=== PATIENT | male | born 1940 | race Caucasian/White ===

== ENCOUNTER 2016-04-15 09:01 | Inpatient (IN) | payer MEDICARE, OTHER ==
[~2016-04-15] VITALS: Ht 177.8 cm; Wt 91.6 kg
[2016-04-15 09:38] LABS: BASO % 0.5 % (0.0-1.0); EOS # 0.2 K/mm3 (0.0-0.50); LARGE UNSTAINED CELL # 0.2 K/mm3 (0.0-0.4); LARGE UNSTAINED CELL % 2.2 % (0.0-4.0); LYMPH # 1.6 K/mm3 (1.5-4.5); LYMPH % 16.7 % (24.0-44.0); MEAN CORPUSCULAR HEMOGLOBIN 31.4 pg (27.0-33.0); MEAN CORPUSCULAR HGB CONC 34.5 g/dl (32.0-36.5); MEAN CORPUSCULAR VOLUME 91.1 fl (80.0-96.0); MONO # 0.6 K/mm3 (0.0-0.8); MONO % 6.5 % (0.0-5.0); NEUTROPHILS # 6.9 K/mm3 (1.8-7.7); NEUTROPHILS % 72.2 % (36.0-66.0); PLATELET COUNT, AUTOMATED 233 k/mm3 (150-450); RED CELL DISTRIBUTION WIDTH 13.1 % (11.5-14.5); WHITE BLOOD COUNT 9.5 K/mm3 (4.0-10.0)
[2016-04-15 09:57] LABS: ANION GAP 11 MEQ/L (8-16); BLOOD UREA NITROGEN 14 MG/DL (7-18); CALCIUM LEVEL 8.8 MG/DL (8.8-10.2); CARBON DIOXIDE LEVEL 24 MEQ/L (21-32); CHLORIDE LEVEL 103 MEQ/L (98-107); CREATININE FOR GFR 0.96 MG/DL (0.70-1.30); GLOMERULAR FILTRATION RATE > 60.0 (>42); GLUCOSE, FASTING 257 MG/DL (83-110); POTASSIUM SERUM 3.6 MEQ/L (3.5-5.1); SODIUM LEVEL 138 MEQ/L (136-145)
[2016-04-15] MEDS ORDERED: ACETAMINOPHEN 325 MG TAB As Ordered ONE (10:05)
[2016-04-15] MEDS ORDERED: MOXIFLOXACIN 400 MG/250 ML IV BAG (AVELOX) (J2280) As Ordered ONE (10:06)
[2016-04-15] MEDS ORDERED: IPRATROPIUM 0.5MG/ALBUTEROL 2.5MG INH SOL UD 3ML (DUONEB)(J7620) As Ordered ONE (10:12)
--- NOTE | 2016-04-15 10:14 | REP ---
CHEST, ONE VIEW: HISTORY: Shortness of breath. COMPARISON: 03/25/2014. An increase in interstitial markings is present in the lungs consistent with chronic interstitial fibrosis. Patchy density is present in the right lower lobe consistent with atelectasis or infiltrate. There is a possible small right pleural effusion. The cardiac silhouette is enlarged. The pulmonary vasculature is normal in appearance. IMPRESSION: 1. Chronic interstitial fibrosis. 2. Right lower lobe atelectasis or infiltrate. 3. Possible small right pleural effusion. 4. Cardiomegaly. Signed by Tomas Mahoney MD 04/15/2016 10:16 A
[2016-04-15 10:33] LABS: ABG BASE EXCESS -4.4 (-2.0-2.0); ABG DEVICE NASAL CANN; ABG HCO3 18.5 MEQ/L (22.0-26.0); ABG PARTIAL PRESSURE CO2 28.9 mmHg (35.0-45.0); ABG PARTIAL PRESSURE O2 110.2 mmHg (75.0-100.0); ABG STANDARD HCO3 20.9 MEQ/L (22.0-26.0); ABG TOTAL CO2 19.4 MEQ/L (23.0-31.0); ABG pH (ARTERIAL) 7.424 UNITS (7.350-7.450)
[2016-04-15] MEDS ORDERED: ISOVUE-370 76% 100ML VIAL (Q9967) As Ordered ONE (11:48)
[2016-04-15] MEDS ORDERED: JANU100T PO (12:59)
[2016-04-15] MEDS ORDERED: LISI10TA4 PO (12:59)
[2016-04-15] MEDS ORDERED: METF500T PO (12:59)
[2016-04-15] MEDS ORDERED: NITR4TASL SL (12:59)
[2016-04-15] MEDS ORDERED: TRIA37.53 PO (12:59)
[2016-04-15] MEDS ORDERED: ELIQ5TAB PO (12:59)
[2016-04-15] MEDS ORDERED: ATOR1TAB19 PO (12:59)
[2016-04-15] MEDS ORDERED: ASPI1TAB PO (12:59)
--- NOTE | 2016-04-15 13:14 | REP ---
CTA of chest, 04/15/2016: Indication: Hypoxia, exclude pulmonary artery embolus. Comparison: Chest radiographs 04/30/2015, and 04/15/2016. TECHNIQUE: Following IV injection of 75 ml Isovue 370 mg/ml, 3 mm continuous spiral axial sections were performed through the chest. Sagittal and coronal reconstructed images were then created and provided for interpretation. Findings: There is aneurysmal dilatation of the ascending thoracic aorta, measuring 4.8 cm AP by 4.7 cm transverse dimension. There is no aortic dissection. The heart is mildly enlarged with left ventricular prominence and left ventricular hypertrophy. There are scattered mediastinal nodes, largest 13 mm short-axis diameter in the subcarinal location. There are no visualized pulmonary artery filling defects or findings to suggest pulmonary artery emboli bilaterally. Compressive atelectasis is seen in the lower lobes bilaterally. There is prominence of pulmonary vasculature consistent with pulmonary venous hypertension bordering mild interstitial pulmonary edema. There are calcified pleural plaques bilaterally consistent with asbestos related disease. Visualized portions of the liver, spleen, pancreas, adrenal glands are normal. There is mild diffuse fatty infiltration of liver. There are small bilateral pleural effusions, right slightly greater than left. Extensive atherosclerotic changes persist noted in the celiac artery. There are no visualized lytic or blastic lesions of bone. Impression: No evidence of pulmonary artery embolus. Mild cardiomegaly with left ventricular enlargement/hypertrophy. Small bilateral pleural effusions, right greater than left, bibasilar atelectasis and pulmonary venous hypertension bordering mild interstitial pulmonary edema. Mild aneurysmal dilatation of the ascending thoracic aorta measuring 4.8 cm AP by 4.7 cm transverse dimension. 13 mm subcarinal node, mildly enlarged. Calcified pleural plaques bilaterally consistent with asbestos related disease. Signed by Ekta Becerril MD 04/15/2016 10:02 P
[2016-04-15] MEDS ORDERED: GLUCAGON FOR INJ 1 MG VIAL (J1610) SC PRN (13:30)
[2016-04-15] MEDS ORDERED: ONDANSETRON 4MG/2ML VIAL (J2405) IV PRN (13:30)
[2016-04-15] MEDS ORDERED: IPRATROPIUM 0.5MG/ALBUTEROL 2.5MG INH SOL UD 3ML (DUONEB)(J7620) NEB PRN (13:30)
[2016-04-15] MEDS ORDERED: DEXTROSE 50% 50 ML SYRINGE IV PRN (13:30)
[2016-04-15] MEDS ORDERED: GLUCOSE 4 GM CHEW TABLET PO PRN (13:30)
[2016-04-15] MEDS ORDERED: ACETAMINOPHEN TAB 650MG DOSE (2X325MG) PO PRN (13:30)
[2016-04-15] MEDS ORDERED: NITROGLYCERIN 0.4 MG SUBL TABLET SL PRN (13:45)
--- NOTE | 2016-04-15 14:49 | HPE ---
DATE OF ADMISSION: 04/15/2016 PRIMARY CARE PROVIDER: [facility]. CHIEF COMPLAINT: Shortness of breath with productive sputum. HISTORY OF PRESENT ILLNESS: 76-year-old gentleman with increasing shortness of breath since 4 o'clock this morning. He has had productive sputum, some questionable fevers, no chills, no rigors. No nausea or vomiting, but he feels that he has had quite a bit of chest tightness and discomfort, difficulty with maintaining oxygen saturations above 87% on room air. Currently he is on 3 liters of oxygen. He did receive a DuoNeb, Avelox and a dose of Solu-Medrol. He does have an underlying history of cardiac stents status post myocardial infarction (TX), diabetes, hypertension, and hyperlipidemia. PAST MEDICAL HISTORY: Diabetes. Hyperlipidemia. Hypertension. Status post TX with cardiac stent placement. Asbestosis with questionable mesothelioma in the past. PAST SURGICAL HISTORY: Cardiac stent placement. SOCIAL HISTORY: He was never a smoker. Denies any tobacco use of any kind. No alcohol. No sick contacts. No recent travel. FAMILY HISTORY: Noncontributory. ALLERGIES: No known drug allergies. HOME MEDICATIONS: - aspirin 81 mg daily - Lipitor 10 mg daily - bupropion 100 mg twice a day - Eliquis 5 mg twice a day - Januvia 50 mg two tablets daily - lisinopril 10 mg daily - metformin 500 mg twice a day - sublingual nitroglycerin 0.4 mg every 5 minutes as needed - triamterene/hydrochlorothiazide 37.5/25 mg tablet daily REVIEW OF SYSTEMS: CONSTITUTIONAL: He has had some mild fevers but no chills, rigors. No nausea, vomiting. No change in appetite. HEENT: Denies headache, lightheaded dizziness blurry vision, double vision or tinnitus. No difficulty with speech or swallow. PULMONARY: He has had increasing shortness of breath, chest tightness with no substernal chest pain, nonproductive cough. No hemoptysis. CARDIOVASCULAR: He denies paroxysmal nocturnal dyspnea (PND), orthopnea. No substernal chest pain. GASTROINTESTINAL (GI): No nausea, vomiting, diarrhea. His appetite has been unchanged. He has regular bowel movements. No hematochezia or melena. GENITOURINARY (): No dysuria, frequency or hematuria. MUSCULOSKELETAL: No bone, muscle or joint pain swelling or erythema. NEURO: No paresthesias or paralysis. ENDOCRINE: No history of thyroid disorder. Positive history of diabetes. LYMPHATICS: No lumps, bumps, swelling in the neck, axilla or groin. No weight loss. No night sweats. HEMATOLOGY: Negative for bleeding or bruising disorder. No prior history of venothromboembolism. ONCOLOGY: Negative for cancer. PSYCHIATRIC: He does have a history of some mild depression on bupropion, but no history of anxiety. No suicidal ideation. No audiovisual hallucinations. 10 point review of systems is complete. Pertinent positives are listed. PHYSICAL EXAMINATION: Temperature is 97.1, respiratory rate is 20, blood pressure 154/104, SpO2 is 95% on 2.5 to 3 liters. HEENT: Head is atraumatic, normocephalic. Eyes pupils equal, round and reactive to light and accommodation. Throat clear. LUNGS: Diminished bibasilar breath sounds with intermittent expiratory wheeze throughout all lung hernandez. HEART: Regular rate and rhythm. ABDOMEN: Obese, soft, nontender, nondistended. Positive bowel sounds. No masses. No rebound. EXTREMITIES: No edema. No calf tenderness. LABORATORY DATA: White count is 9.5, hemoglobin is 15, platelets are 233, sodium 138, potassium 3.6, chloride 103, bicarb 24, anion gap 11, BUN is 14, creatinine 0.96, glucose 257, lactic acid is 2. CK is 202 and 163, CK-MB is 6.8 and 5.6. Troponin is 0.14 and 0.16. BNP is 435. ABG shows a pH of 7.424, pCO2 is 28.9, pO2 is 110.2. Blood cultures pending times two. Influenza A and B are negative. Chest x-ray chronic interstitial fibrosis, right lower lobe atelectasis versus infiltrate, possible small right pleural effusion and cardiomegaly is noted. CT angio of the chest negative for pulmonary embolism, mild cardiomegaly left ventricular enlargement/hypertrophy, small bilateral pleural effusions right greater than left, bibasilar atelectasis versus pulmonary venous hypertension bordering mild interstitial pulmonary edema. Mild aneurysmal dilation of the thoracic aorta measuring 4.8 and 4.7, by AP and transverse dimension, respectively. 13 mm subcarinal node. Mildly enlarged calcified pleural plaques bilaterally consistent with asbestosis related disease. IMPRESSION: Mr. Wolf is a 76-year-old gentleman with increasing shortness of breath with signs and symptoms of community-acquired pneumonia. Clinically he is requiring some oxygen for his acute respiratory failure and will need to be admitted overnight for further observation and treatment. PROBLEM LIST: 1. Acute respiratory failure. 2. Community acquired pneumonia, most likely bacterial etiology. 3. Mildly elevated Troponin. Will need to have cardiac markers cycled. 4. Diabetes. 5. Hyperlipidemia. 6. Hypertension. 7. Prior TX. 8. History of cardiac stents. PLAN: The patient admitted to PCU on telemetry. Will monitor overnight. Will cycle his cardiac markers and start on IV Levaquin, Solu-Medrol, and DuoNebs. Continue his home medications with hold parameters on his blood pressure medications. Hold his Januvia and his metformin due to risk of hypoglycemia. Will cover him with fingersticks before meals and at bedtime, as well as sliding scale insulin per [facility] protocol. Deep vein thrombosis (DVT) prophylaxis with Lovenox. Will reevaluate him in the morning.
--- NOTE | 2016-04-15 15:09 | EDDOCDS ---
Physician Documentation [facility] Name: Sherif Wolf Age: 76 yrs Sex: Male : 1940 Arrival Date: 04/15/2016 Time: 09:01 Bed 9 Private MD: Disposition: 04/15/16 13:21 Hospitalization ordered by Herrera Soria for Inpatient Admission. Preliminary diagnosis is Pneumonia due to other specified bacteria. - Bed requested for PCU. - Status is Inpatient Admission. jmk - Condition is Stable. - Problem is new. - Symptoms are unchanged. Historical: - Allergies: no known allergies; - Home Meds: 1. aspirin 81 mg Oral TbEC 1 tab once daily 2. atorvastatin 10 mg oral tab 1 tab once daily 3. bupropion HCl 100 mg Oral tab 2 times per day 4. Eliquis 5 mg oral tab 1 tab 2 times per day 5. Januvia 50 mg oral tab 2 tabs once daily 6. lisinopril 10 mg Oral tab once daily 7. metformin 500 mg Oral tab 1 tab 2 times per day 8. nitroglycerin 0.4 mg SL subl 1 tab every 5 minutes X3 as needed 9. triamterene-hydrochlorothiazid 37.5-25 mg Oral cap 1 cap once daily - PMHx: Diabetes - NIDDM: controlled; Hypercholesterolemia; Hypertension; VA; - PSHx: Cardiac stents; - Social history: Smoking status: Patient states was never smoker of tobacco. No barriers to communication noted, The patient speaks fluent Mongolian, Speaks appropriately for age. - Family history: Not pertinent. - : The pt / caregiver states he / she is on anticoagulants: Eliquis Home medication list is obtained from the patient. - Exposure Risk Screening:: None identified. Vital Signs: 04/15 09:03 BP 174 / 101; Pulse 59; Resp 26 S; Temp 97.1(O); Pulse Ox 95% on R/A; Weight 92.99 kg / dd6 205.01 lbs (R); Height 5 ft. 10 in. (177.80 cm) (R); 10:16 BP 177 / 81 (auto/); jmk 10:16 Pulse 108 MON; Pulse Ox 96% ; jmk 10:31 BP 155 / 88 (auto/); jmk 10:31 Pulse 108 MON; Resp 20; Pulse Ox 96% ; jmk 10:46 BP 176 / 94 (auto/); jmk 10:46 Pulse 110 MON; Pulse Ox 94% ; jmk 11:01 BP 166 / 104 (auto/); jmk 11:01 Pulse 110 MON; Pulse Ox 95% ; jmk 11:16 BP 173 / 98 (auto/); jmk 11:16 Pulse 112 MON; Pulse Ox 93% ; jmk 12:04 BP 154 / 104 (auto/); Resp 20; jmk 12:05 Pulse 108 MON; Pulse Ox 95% ; jmk 14:32 BP 126 / 84; Pulse 100; Resp 18; Temp 97.6(O); Pulse Ox 96% 4 lpm ; jmk 09:03 Body Mass Index 29.41 (92.99 kg, 177.80 cm) dd6 MDM: 09:13 -Blood Culture (Adults Only), peripheral from different site, or from device/port/PICC sd1 etc. if present ordered. 09:13 Cognos Lead/Pulse Ox/q 15 min VS ordered. sd1 09:13 IV Saline Lock ordered. sd1 09:13 Oxygen at 4L/Min NC or Home dosage ordered. sd1 09:13 Rhythm Strip to chart ordered. sd1 09:14 B-Type Natiuretic Peptide Ordered. EDMS 09:14 Basic Metabolic Profile Ordered. EDMS 09:14 CBC with Diff Ordered. EDMS 09:14 Cardiac Injury Profile Ordered. EDMS 09:14 Troponin Ordered. EDMS 09:15 -Blood Culture Ordered. EDMS 09:15 Chest, 1 View Ordered. EDMS 09:15 ECG WITH READING ER PHYS+CARDIAG ordered. EDMS 09:20 -Blood Culture (Adults Only), peripheral from different site, or from device/port/PICC lbd etc. if present complete. 09:25 BLOOD CULTURES Ordered. EDMS 09:45 Misc. Nursing Order ordered. sd1 10:02 Albuterol-Ipratropium 1 neb Nebulizer every 20 minutes x3 ordered. sd1 10:02 Moxifloxacin 400 mg IV at 400 mg/hr once over 60 mins ordered. sd1 10:02 Basic Metabolic Profile Reviewed. sd1 10:02 CBC with Diff Reviewed. sd1 10:02 Cardiac Injury Profile Reviewed. sd1 10:02 Troponin Reviewed. sd1 10:03 Call Respiratory ordered. sd1 10:03 Lactic Acid (Pulido tube on ice) Ordered. EDMS 10:04 -Arterial Blood Gas Ordered. EDMS 10:04 -Influenza A&B Rapid Antigen - Nose Ordered. EDMS 10:04 Call Respiratory complete. lbd 10:06 Acetaminophen Tablet 325 mg PO once ordered. enrico 10:07 Financial registration complete. lg 10:23 [facility] Payment Agreement was scanned into [employer] and attached to record. lg 11:35 B-Type Natiuretic Peptide Reviewed. sd1 11:35 -Arterial Blood Gas Reviewed. sd1 11:35 Lactic Acid (Pulido tube on ice) Reviewed. sd1 11:35 -Influenza A&B Rapid Antigen - Nose Reviewed. sd1 11:35 Chest, 1 View Reviewed. sd1 11:38 Redraw CIP &Troponin (put time in details section) ordered. sd1 11:40 CT Chest Angio R/O PE Ordered. EDMS 11:40 Redraw CIP &Troponin (put time in details section) complete. lbd 11:43 CARDIAC MARKER PANEL Ordered. EDMS 11:48 BED REQUEST+ADM ordered. EDMS 12:49 CARDIAC MARKER PANEL Reviewed. sd1 13:34 CONSISTENT CARBOHYDRATES ordered. EDMS 13:37 Admission / Observation Status ordered. EDMS 14:03 SPUTUM CULTURE AND GRAM STAIN Ordered. EDMS 14:05 CARDIAC MARKER PANEL Ordered. EDMS Administered Medications: 10:11 Drug: Albuterol-Ipratropium 1 neb [ipratropium-albuterol 0.5 mg-3 mg(2.5 mg base)/3 mL kt1 nebulization soln (1 neb)] Route: Nebulizer; 10:25 Drug: Albuterol-Ipratropium 1 neb [ipratropium-albuterol 0.5 mg-3 mg(2.5 mg base)/3 mL kt1 nebulization soln (1 neb)] Route: Nebulizer; 10:25 Follow up: Response: Nebulizer completed kt1 10:36 Follow up: Response: Nebulizer completed kt1 10:26 Drug: Moxifloxacin 400 mg [moxifloxacin 400 mg/250 mL-sodium chloride(iso) intravenous enrico piggyback] Route: IV; Rate: 400 mg/hr; Infused Over: 60 mins; Site: right antecubital; 10:26 Drug: Acetaminophen 325 mg [acetaminophen 325 mg tablet (1 tabs)] Route: PO; jmk 12:06 Follow up: Response: Pain is decreased jmk 10:37 Drug: Albuterol-Ipratropium 1 neb [ipratropium-albuterol 0.5 mg-3 mg(2.5 mg base)/3 mL kt1 nebulization soln (1 neb)] Route: Nebulizer; 10:47 Follow up: Response: Nebulizer completed kt1 Signatures: Dispatcher [employer] EDMS Aixa Gamble MD MD sd1 Dinah Kenny, End User Consultant Unit lbd Ricardo Duke,RN RN jmk Jazmyn Jett, Navjot Reg lg Sherif Peterson RN RN mlb1 Katherine Carmona, DIRECTOR OF LITIGATION DIRECTOR OF LITIGATION Ml Benavides kt1 The chart was reviewed and I authenticate all verbal orders and agree with the evaluation and treatment provided.Corrections: (The following items were deleted from the chart) 13:40 13:12 REGULAR+DIET ordered. EDMS EDMS Attachments: 10:23 [facility] Payment Agreement lg MTDD
[2016-04-15 15:10] VITALS: BP 130/78
--- NOTE | 2016-04-15 15:10 | EDDOCDS ---
Nurse's Notes [facility] Name: Sherif Wolf Age: 76 yrs Sex: Male : 1940 Arrival Date: 04/15/2016 Time: 09:01 Bed 9 Private MD: Diagnosis: Pneumonia due to other specified bacteria Presentation: 04/15 09:05 Presenting complaint: Patient states: SOB began at 0400 this am. Adult Sepsis mlb1 Screening: The patient does not have new or worsening altered mentation. Patient has a respiratory rate of greater than or equal to 22 (1 point). Systolic blood pressure is greater than 100. Patient has a qSOFA score of 0- Negative Sepsis Screen. Suicide/Homicide risk assessment- the patient denies having any suicidal and/or homicidal ideations and does not present with any other emotional, behavioral or mental health complaints. Status: Patient is not a conference service coordinator or dependent. Transition of care: patient was not received from another setting of care. 09:05 Acuity: PRANEETH Level 3 mlb1 09:05 Method Of Arrival: Walkin/Carried/Asstd mlb1 Triage Assessment: 09:08 General: Appears distressed, Behavior is appropriate for age, cooperative. Pain: Denies mlb1 pain. Respiratory: Onset: The symptoms/episode began/occurred this morning, Airway is patent Respiratory effort is labored. Historical: - Allergies: no known allergies; - Home Meds: 1. aspirin 81 mg Oral TbEC 1 tab once daily 2. atorvastatin 10 mg oral tab 1 tab once daily 3. bupropion HCl 100 mg Oral tab 2 times per day 4. Eliquis 5 mg oral tab 1 tab 2 times per day 5. Januvia 50 mg oral tab 2 tabs once daily 6. lisinopril 10 mg Oral tab once daily 7. metformin 500 mg Oral tab 1 tab 2 times per day 8. nitroglycerin 0.4 mg SL subl 1 tab every 5 minutes X3 as needed 9. triamterene-hydrochlorothiazid 37.5-25 mg Oral cap 1 cap once daily - PMHx: Diabetes - NIDDM: controlled; Hypercholesterolemia; Hypertension; PR; - PSHx: Cardiac stents; - Social history: Smoking status: Patient states was never smoker of tobacco. No barriers to communication noted, The patient speaks fluent Bangladeshi, Speaks appropriately for age. - Family history: Not pertinent. - : The pt / caregiver states he / she is on anticoagulants: Eliquis Home medication list is obtained from the patient. - Exposure Risk Screening:: None identified. Screenin:39 Screening information is obtained from the patient. Fall risk: No risks identified. k Assistance ADL's: requires no assistance with activities of daily living. Abuse/DV Screen: The patient / caregiver reports he/she is: not in a situation that causes fear, pain or injury. Nutritional screening: No deficits noted. Advance Directives: Currently, there is a health care proxy, moe cuellar. There is an active DNR order There is no living will. There is an active Power of Clinical Research Monitor, moe cuellar. home support is adequate. Assessment: 09:39 General: Appears in no apparent distress. Cardiovascular: Capillary refill < 3 seconds [facility] Clubbing of nail beds is absent Heart tones S1 S2 present Edema is absent. Rhythm is regular Chest pain is denied. Respiratory: No deficits noted. Airway is patent Respiratory effort is even, unlabored, Respiratory pattern is regular, Breath sounds are absent bilaterally. Breath sounds are clear. GI: Abdomen is non- distended obese. 10:30 General: Appears pleasant and conversive. complete sentences without resp interruption [facility] while at rest. + diffuse headache and medicated for same. 12:28 General: Appears ambulated to bathroom with steady gait. + fatigue with physical [facility] activity which he reports as not at his baseline. monitor is sr/st. denies chest pain.. 13:17 General: Appears presently sitting upright on edge of stretcher. juice provided as per [facility] request. without resp distress when at rest.. awaiting admsiision. 14:22 General: Appears diet has been provided and taken well.. presently resting supine on [employer] stretcher. no observed resp distress when at rest.. 14:38 General: Appears awakened from sleep . without resp distress. denies pain. Monitor is [employer] sr without ectopy. maintaining sat of 96% with 4 l nc. sl intact to right AC space. admitted. Vital Signs: 09:03 BP 174 / 101; Pulse 59; Resp 26 S; Temp 97.1(O); Pulse Ox 95% on R/A; Weight 92.99 kg dd6 (R); Height 5 ft. 10 in. (177.80 cm) (R); 10:16 BP 177 / 81 (auto/); jmk 10:16 Pulse 108 MON; Pulse Ox 96% ; jmk 10:31 BP 155 / 88 (auto/); jmk 10:31 Pulse 108 MON; Resp 20; Pulse Ox 96% ; jmk 10:46 BP 176 / 94 (auto/); jmk 10:46 Pulse 110 MON; Pulse Ox 94% ; jmk 11:01 BP 166 / 104 (auto/); jmk 11:01 Pulse 110 MON; Pulse Ox 95% ; jmk 11:16 BP 173 / 98 (auto/); jmk 11:16 Pulse 112 MON; Pulse Ox 93% ; jmk 12:04 BP 154 / 104 (auto/); Resp 20; jmk 12:05 Pulse 108 MON; Pulse Ox 95% ; jmk 14:32 BP 126 / 84; Pulse 100; Resp 18; Temp 97.6(O); Pulse Ox 96% 4 lpm ; jmk 09:03 Body Mass Index 29.41 (92.99 kg, 177.80 cm) dd6 Vitals: 09:03 Log In Time: April 15, 2016 at 09:01. RN notified that patient meets Red Flag dd6 criteria. ED Course: 09:02 Patient visited by Mazin Melo PCA. dd6 09:02 Patient moved to Waiting dd6 09:05 Patient visited by Sherif Peterson, RN. mlb1 09:06 Triage Initiated mlb1 09:08 Patient visited by Sherif Peterson, RN. mlb1 09:09 Patient moved to 9 mlb1 09:16 Aixa Gamble MD is Attending Physician. sd1 09:16 Patient visited by Aixa Gamble MD. sd1 09:24 Patient visited by Charly Monet. jml1 09:24 EKG done. (by ED staff). Reviewed by Aixa Gamble MD. jml1 09:28 -Blood Culture Sent. kr3 09:28 B-Type Natiuretic Peptide Sent. kr3 09:28 Basic Metabolic Profile Sent. kr3 09:28 CBC with Diff Sent. kr3 09:28 Cardiac Injury Profile Sent. kr3 09:28 Troponin Sent. kr3 09:28 Inserted saline lock: 20 gauge in right antecubital area and blood collected. The kr3 patient tolerated the procedure well. 09:39 The patient / caregiver is instructed regarding the plan of care and ED course. Cardiac jmk monitor on. Pulse ox on. 09:39 No procedures done that require assistance. jmk 09:40 Patient visited by Ricardo Duke,RN. jmk 09:59 BLOOD CULTURES Sent. jmk 10:23 [facility] [place] was scanned into [employer] and attached to record. lg 10:24 -Arterial Blood Gas Sent. kt1 10:26 -Influenza A&B Rapid Antigen - Nose Sent. jmk 10:27 Chest, 1 View Returned. EDMS 10:51 Patient visited by Charly Monet. jml1 11:33 Patient visited by Katherine Carmona PCA. jlf 11:53 Patient visited by Katherine Carmona PCA. jlf 12:06 CARDIAC MARKER PANEL Sent. jmk 12:18 Patient visited by Katherine Carmona PCA. jlf 13:18 Patient visited by Ricardo Duke,AFUA. jmk 13:20 Herrera Soria DO is Hospitalizing Provider. sd1 13:22 CT Chest Angio R/O PE Returned. EDMS Administered Medications: 10:11 Drug: Albuterol-Ipratropium 1 neb [ipratropium-albuterol 0.5 mg-3 mg(2.5 mg base)/3 mL kt1 nebulization soln (1 neb)] Route: Nebulizer; 10:25 Drug: Albuterol-Ipratropium 1 neb [ipratropium-albuterol 0.5 mg-3 mg(2.5 mg base)/3 mL kt1 nebulization soln (1 neb)] Route: Nebulizer; 10:25 Follow up: Response: Nebulizer completed kt1 10:36 Follow up: Response: Nebulizer completed kt1 10:26 Drug: Moxifloxacin 400 mg [moxifloxacin 400 mg/250 mL-sodium chloride(iso) intravenous enrico piggyback] Route: IV; Rate: 400 mg/hr; Infused Over: 60 mins; Site: right antecubital; 10:26 Drug: Acetaminophen 325 mg [acetaminophen 325 mg tablet (1 tabs)] Route: PO; jmk 12:06 Follow up: Response: Pain is decreased jmk 10:37 Drug: Albuterol-Ipratropium 1 neb [ipratropium-albuterol 0.5 mg-3 mg(2.5 mg base)/3 mL kt1 nebulization soln (1 neb)] Route: Nebulizer; 10:47 Follow up: Response: Nebulizer completed kt1 RT: 10:15 ABG's drawn from right radial artery pressure held for 5 minutes no bleeding noted kt1 pressure bandage applied specimen sent pt. tolerated well. 10:15 Initial Med Neb Given as ordered Patient was instructed and evaluated on procedure kt1 Patient tolerated procedure well without adverse effect. Respiratory: Breath sounds are diminished bilaterally. Breath sounds with wheezes in left posterior upper lobe and left posterior lower lobe at expiration. Order Results: Lab Order: B-Type Natiuretic Peptide; SPEC'M 04/15/16 09:26 Test: BRAIN NATRIURETIC PEPTIDE; Value: 435; Range: <100; Abnormal: Above high normal; Units: PG/ML; Status: F Lab Order: Basic Metabolic Profile; SPEC'M 04/15/16 09:26 Test: GLUCOSE, FASTING; Value: 257; Range: 83-110; Abnormal: Above high normal; Units: MG/DL; Status: F Test: BLOOD UREA NITROGEN; Value: 14; Range: 7-18; Units: MG/DL; Status: F Test: CREATININE FOR GFR; Value: 0.96; Range: 0.70-1.30; Units: MG/DL; Status: F Test: GLOMERULAR FILTRATION RATE; Value: > 60.0; Range: >42; Status: F Test: SODIUM LEVEL; Value: 138; Range: 136-145; Units: MEQ/L; Status: F Test: POTASSIUM SERUM; Value: 3.6; Range: 3.5-5.1; Units: MEQ/L; Status: F Test: CHLORIDE LEVEL; Value: 103; Range: 98-107; Units: MEQ/L; Status: F Test: CARBON DIOXIDE LEVEL; Value: 24; Range: 21-32; Units: MEQ/L; Status: F Test: ANION GAP; Value: 11; Range: 8-16; Units: MEQ/L; Status: F Test: CALCIUM LEVEL; Value: 8.8; Range: 8.8-10.2; Units: MG/DL; Status: F Test Note: ; Units are mL/min/1.73 m2 Chronic Kidney Disease Staging per NKF: Stage I & II GFR >=60 Normal to Mildly Decreased Stage III GFR 30-59 Moderately Decreased Stage IV GFR 15-29 Severely Decreased Stage V GFR <15 Very Little GFR Left ESRD GFR <15 on SENIOR SCIENCE CONSULTANT Lab Order: CBC with Diff; SPEC'M 04/15/16 09:26 Test: WHITE BLOOD COUNT; Value: 9.5; Range: 4.0-10.0; Units: K/mm3; Status: F Test: RED BLOOD COUNT; Value: 4.78; Range: 4.30-6.10; Units: M/mm3; Status: F Test: HEMOGLOBIN; Value: 15.0; Range: 14.0-18.0; Units: g/dl; Status: F Test: HEMATOCRIT; Value: 43.6; Range: 42.0-52.0; Units: %; Status: F Test: MEAN CORPUSCULAR VOLUME; Value: 91.1; Range: 80.0-96.0; Units: fl; Status: F Test: MEAN CORPUSCULAR HEMOGLOBIN; Value: 31.4; Range: 27.0-33.0; Units: pg; Status: F Test: MEAN CORPUSCULAR HGB CONC; Value: 34.5; Range: 32.0-36.5; Units: g/dl; Status: F Test: RED CELL DISTRIBUTION WIDTH; Value: 13.1; Range: 11.5-14.5; Units: %; Status: F Test: PLATELET COUNT, AUTOMATED; Value: 233; Range: 150-450; Units: k/mm3; Status: F Test: NEUTROPHILS %; Value: 72.2; Range: 36.0-66.0; Abnormal: Above high normal; Units: %; Status: F Test: LYMPH %; Value: 16.7; Range: 24.0-44.0; Abnormal: Below low normal; Units: %; Status: F Test: MONO %; Value: 6.5; Range: 0.0-5.0; Abnormal: Above high normal; Units: %; Status: F Test: EOS %; Value: 2.0; Range: 0.0-3.0; Units: %; Status: F Test: BASO %; Value: 0.5; Range: 0.0-1.0; Units: %; Status: F Test: LARGE UNSTAINED CELL %; Value: 2.2; Range: 0.0-4.0; Units: %; Status: F Test: NEUTROPHILS #; Value: 6.9; Range: 1.8-7.7; Units: K/mm3; Status: F Test: LYMPH #; Value: 1.6; Range: 1.5-4.5; Units: K/mm3; Status: F Test: MONO #; Value: 0.6; Range: 0.0-0.8; Units: K/mm3; Status: F Test: EOS #; Value: 0.2; Range: 0.0-0.50; Units: K/mm3; Status: F Test: BASO #; Value: 0.0; Range: 0.0-0.2; Units: K/mm3; Status: F Test: LARGE UNSTAINED CELL #; Value: 0.2; Range: 0.0-0.4; Units: K/mm3; Status: F Lab Order: Cardiac Injury Profile; SPEC'M 04/15/16 09:26 Test: CPK CREATINE PHOSPHOKINASE; Value: 202; Range: 39-308; Units: U/L; Status: F Test: CK-MB VALUE MASS; Value: 6.8; Range: 0.0-3.6; Abnormal: Above high normal; Units: NG/ML; Status: F Test: MB/CK RELATIVE INDEX; Value: 3.36; Range: < OR =4; Status: F Test Note: ; DIAGNOSIS CRITERIA MMB ng/ml Relative Index (RI) NON-AMI < or = 5 N/A PULIDO ZONE > 5 < or = 4 AMI > 5 > 4 Lab Order: Troponin; SPEC'M 04/15/16 09:26 Test: TROPONIN I; Value: 0.14; Range: < 0.10; Abnormal: Above high normal; Units: NG/ML; Status: F Test Note: ; Troponin I Reference Interval for Synchro LOCI: 99th Percentile= 0.00-0.045 ng/ml Risk Stratification: <= 0.10 ng/ml Decreased Risk for Adverse Clinical Events. 0.10-1.50 ng/ml Increased Risk for Adverse Clinical Events. Evaluation of additional criterion and/or repeat testing in 2-6 hours is suggested to rule out myocardial damage. >= 1.50 ng/ml Indicative of Myocardial Injury. Lab Order: Lactic Acid (Pulido tube on ice); SPEC'M 04/15/16 09:26 Test: LACTIC ACID LEVEL, LACTATE; Value: 2.0; Range: 0.4-2.0; Units: MMOL/L; Status: F Lab Order: -Arterial Blood Gas; SPEC'M 04/15/16 10:03 Test: ABG pH (ARTERIAL); Value: 7.424; Range: 7.350-7.450; Units: UNITS; Status: F Test: ABG PARTIAL PRESSURE CO2; Value: 28.9; Range: 35.0-45.0; Abnormal: Below low normal; Units: mmHg; Status: F Test: ABG PARTIAL PRESSURE O2; Value: 110.2; Range: 75.0-100.0; Abnormal: Above high normal; Units: mmHg; Status: F Test: ABG TOTAL CO2; Value: 19.4; Range: 23.0-31.0; Abnormal: Below low normal; Units: MEQ/L; Status: F Test: ABG HCO3; Value: 18.5; Range: 22.0-26.0; Abnormal: Below low normal; Units: MEQ/L; Status: F Test: ABG BASE EXCESS; Value: -4.4; Range: -2.0-2.0; Abnormal: Below low normal; Status: F Test: ABG STANDARD HCO3; Value: 20.9; Range: 22.0-26.0; Abnormal: Below low normal; Units: MEQ/L; Status: F Test: ABG O2 SATURATION; Value: 98.5; Range: 95.0-99.0; Units: %; Status: F Test: ABG DEVICE; Value: NASAL RAEGAN; Status: F Lab Order: -Influenza A&B Rapid Antigen - Nose; SPEC'M 04/15/16 10:14 Test: INFLUENZA A RAPID SCR by ICA; Value: INFLUENZA A RESULTS NEGATIVE; Status: F Test: INFLUENZA A RAPID SCR by ICA; Value: Comments:; Status: F Test: INFLUENZA B RAPID SCR by ICA; Value: INFLUENZA B RESULTS NEGATIVE; Status: F Test Note: ; The Influenza test is a direct rapid immunoassay for the qualitative detection of Influenza viral antigen. Cell culture (Viral Culture) testing should be considered to confirm NEGATIVE results and to assist in detecting other viruses that can provide similar clinical symptoms. Please contact the lab within 24 hours ([phone] if confirmatory testing is desired. Lab Order: CARDIAC MARKER PANEL; SPEC'M 04/15/16 12:05 Test: CPK CREATINE PHOSPHOKINASE; Value: 163; Range: 39-308; Units: U/L; Status: F Test: CK-MB VALUE MASS; Value: 5.6; Range: 0.0-3.6; Abnormal: Above high normal; Units: NG/ML; Status: F Test: MB/CK RELATIVE INDEX; Value: 3.43; Range: < OR =4; Status: F Test: TROPONIN I; Value: 0.16; Range: < 0.10; Abnormal: Above high normal; Units: NG/ML; Status: F Test Note: ; DIAGNOSIS CRITERIA MMB ng/ml Relative Index (RI) NON-AMI < or = 5 N/A PULIDO ZONE > 5 < or = 4 AMI > 5 > 4 Radiology Order: Chest, 1 View Test: Chest, 1 View REASON FOR EXAMINATION: Shortness of Breath; CHEST, ONE VIEW:; ; HISTORY: Shortness of breath.; ; COMPARISON: 03/25/2014.; ; An increase in interstitial markings is present in the lungs consistent with; chronic interstitial fibrosis. Patchy density is present in the right lower lobe; consistent with atelectasis or infiltrate. There is a possible small right; pleural effusion. The cardiac silhouette is enlarged. The pulmonary vasculature; is normal in appearance.; ; IMPRESSION:; ; 1. Chronic interstitial fibrosis.; ; 2. Right lower lobe atelectasis or infiltrate.; ; 3. Possible small right pleural effusion.; ; 4. Cardiomegaly.; ; ; Signed by; Tomas Mahoney MD 04/15/2016 10:16 A; Radiology Order: CT Chest Angio R/O PE Test: CT Chest Angio R/O PE REASON FOR EXAMINATION: hypoxia; CTA of chest, 04/15/2016:; ; Indication: Hypoxia, exclude pulmonary artery embolus.; ; Comparison: Chest radiographs 04/30/2015, and 04/15/2016.; ; TECHNIQUE: Following IV injection of 75 ml Isovue 370 mg/ml, 3 mm continuous; spiral axial sections were performed through the chest. Sagittal and coronal; reconstructed images were then created and provided for interpretation.; ; Findings: There is aneurysmal dilatation of the ascending thoracic aorta,; measuring 4.8 cm AP by 4.7 cm transverse dimension. There is no aortic; dissection. The heart is mildly enlarged with left ventricular prominence and; left ventricular hypertrophy. There are scattered mediastinal nodes, largest 13; mm short-axis diameter in the subcarinal location. There are no visualized; pulmonary artery filling defects or findings to suggest pulmonary artery emboli; bilaterally.; ; Compressive atelectasis is seen in the lower lobes bilaterally.; ; There is prominence of pulmonary vasculature consistent with pulmonary venous; hypertension bordering mild interstitial pulmonary edema. There are calcified; pleural plaques bilaterally consistent with asbestos related disease.; ; Visualized portions of the liver, spleen, pancreas, adrenal glands are normal.; There is mild diffuse fatty infiltration of liver. There are small bilateral; pleural effusions, right slightly greater than left. Extensive atherosclerotic; changes persist noted in the celiac artery. There are no visualized lytic or; blastic lesions of bone.; ; Impression:; No evidence of pulmonary artery embolus.; ; Mild cardiomegaly with left ventricular enlargement/hypertrophy. Small bilateral; pleural effusions, right greater than left, bibasilar atelectasis and pulmonary; venous hypertension bordering mild interstitial pulmonary edema.; ; Mild aneurysmal dilatation of the ascending thoracic aorta measuring 4.8 cm AP by; 4.7 cm transverse dimension.; ; 13 mm subcarinal node, mildly enlarged.; ; Calcified pleural plaques bilaterally consistent with asbestos related disease.; ; ; ; ; Unreviewed; Outcome: 13:21 Decision to Hospitalize by Provider. sd1 14:38 Discharge Assessment: Patient awake, alert and oriented x 3. No cognitive and/or jmk functional deficits noted. Patient verbalized understanding of disposition instructions. patient administered narcotics - no. The following High Risk Discharge criteria are identified: None. Condition: good. CT Study completed. Admission hand-off: Report Faxed Fax receipt verified by brittnee, wastewater treatment plant chemist. Property :Personal belongings accompany Pt. 15:09 Patient left the ED. enrico Signatures: Dispatcher [employer] EDKS Aixa Gamble MD MD sd1 Ricardo Duke,AFUA RN Jazmyn Long Reg Reg lg Barney, Sherif B, RN RN mlb1 Ml Rai kt1 Tete Moncada,AFUA RN kr3 Mazin Melo, A AUXILIARY A AUXILIARY dd6 Charly Monet jml1 Katherine Carmona, A AUXILIARY A AUXILIARY jlf ISISD
[2016-04-15] MEDS: IPRATROPIUM 0.5MG/ALBUTEROL 2.5MG INH SOL UD 3ML (DUONEB)(J7620) NEB SCH (16:00)
[2016-04-15] MEDS: HumaLOG INSULIN (NovoLOG) PER UNIT SC SCH ×2 (17:31→21:36)
[2016-04-15] MEDS: methylPREDNISolone INJ 125 MG/2 ML VIAL (J2930) IV SCH (17:32)
--- NOTE | 2016-04-15 19:58 | ECGEPIP ---
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
[2016-04-15 20:00] VITALS: BP 139/90
[2016-04-15] MEDS: DOCUSATE SODIUM 100 MG CAP PO SCH (21:00)
[2016-04-15] MEDS: APIXABAN 5 MG TAB (ELIQUIS) PO SCH (21:36)
[2016-04-15] MEDS: ATORVASTATIN 10 MG TAB PO SCH (21:36)
[2016-04-15 23:59] VITALS: BP 150/100
[2016-04-16] MEDS ORDERED: LISINOPRIL 10 MG TAB PO ONE (00:45)
[2016-04-16 04:00] VITALS: BP 150/90
[2016-04-16] MEDS: methylPREDNISolone INJ 125 MG/2 ML VIAL (J2930) IV SCH ×2 (04:00→15:16)
[2016-04-16 06:06] LABS: MEAN CORPUSCULAR HEMOGLOBIN 31.8 pg (27.0-33.0); MEAN CORPUSCULAR HGB CONC 34.9 g/dl (32.0-36.5); MEAN CORPUSCULAR VOLUME 91.2 fl (80.0-96.0); RED CELL DISTRIBUTION WIDTH 12.9 % (11.5-14.5); WHITE BLOOD COUNT 9.5 K/mm3 (4.0-10.0)
[2016-04-16 06:28] LABS: ALBUMIN 3.7 GM/DL (3.2-5.2); ANION GAP 12 MEQ/L (8-16); BLOOD UREA NITROGEN 14 MG/DL (7-18); CALCIUM LEVEL 9.4 MG/DL (8.8-10.2); CARBON DIOXIDE LEVEL 22 MEQ/L (21-32); CHLORIDE LEVEL 102 MEQ/L (98-107); CREATININE FOR GFR 0.96 MG/DL (0.70-1.30); GLOMERULAR FILTRATION RATE > 60.0 (>42); GLUCOSE, FASTING 322 MG/DL (83-110); PHOSPHORUS LEVEL 3.3 MG/DL (2.5-4.9); POTASSIUM SERUM 3.9 MEQ/L (3.5-5.1); SODIUM LEVEL 136 MEQ/L (136-145)
[2016-04-16] MEDS: IPRATROPIUM 0.5MG/ALBUTEROL 2.5MG INH SOL UD 3ML (DUONEB)(J7620) NEB SCH ×3 (07:12→15:18)
[2016-04-16 07:30] VITALS: BP 167/80
[2016-04-16 08:31] LABS: ABG BASE EXCESS -6.6 (-2.0-2.0); ABG HCO3 15.4 MEQ/L (22.0-26.0); ABG PARTIAL PRESSURE CO2 23.8 mmHg (35.0-45.0); ABG STANDARD HCO3 19.2 MEQ/L (22.0-26.0); ABG TOTAL CO2 16.2 MEQ/L (23.0-31.0)
[2016-04-16] MEDS ORDERED: DYAZIDE 37.5/25 CAP (TRIAM/HCTZ) PO SCH ×2 (09:00)
[2016-04-16] MEDS: LevoFLOXacin 500 MG in APPROPRIATE DILUENT 1 EA IV SCH (09:12)
[2016-04-16] MEDS: HumaLOG INSULIN (NovoLOG) PER UNIT SC SCH ×4 (09:13→20:53)
[2016-04-16] MEDS: ASPIRIN 81 MG ENTERIC TAB PO SCH (09:14)
[2016-04-16] MEDS: LISINOPRIL 10 MG TAB PO SCH (09:14)
[2016-04-16] MEDS: DOCUSATE SODIUM 100 MG CAP PO SCH ×2 (09:14→20:51)
[2016-04-16] MEDS: APIXABAN 5 MG TAB (ELIQUIS) PO SCH ×2 (09:14→20:51)
[2016-04-16 12:00] VITALS: BP 138/89
--- NOTE | 2016-04-16 13:30 | IPNPDOC ---
Text Note Date of Service The patient was seen on 04/16/16 at 13:16. NOTE Subjective: Patient is a 76 year old male with a PMHx of DM2, DLP, HTN, CAD s/p stent, Hx of RI, and Hx of Asbestosis exposure who presented to the ER with complaints of shortness of breath and productive cough. He noted that he has had subjective fevers, no chills. He was admitted to PCU for possible CAP. Patient has been seen and examined at the bedside. Clinically he notes significant improvement in his breathing. Objective: Vitals (See below) General: Lying in bed, no acute distress, comfortable, AAOx3 HEENT: NC, AT CVS: RRR, +S1S2 Lungs: Fair air entry b/l, -w/r/r Abdomen: Soft, ND, NT, +BSx4 Extremities: +PPx4, -edema, - calf tenderness Assessment and plan: 1. Acute hypoxic respiratory failure - likely 2/2 exacerbation of interstitial lung disease, less likely CAP - Clinically is doing better; breathing has improved - Physical does not reveal any wheezing or rhonchi - CXR 04/15: chronic interstitial fibrosis, RLL atelectasis / infiltrate, possible small R pleural effusion, cardiomegaly - CTA chest 04/15: No PE, mild cardiomegaly, small b/l pleural effusions, bibasilar atelectasis, mild interstitial pulmonary edema, 13mm subcarinal node, calcified pleural plaques b/l - related to asbestos disease - influenza negative - will f/u blood cultures, sputum cultures and - c/w Levaquin (Day #2), Duoneb, and Solumedrol 2. Elevated troponin - likely 2/2 demand ischemia - No chest pain at this time - EKG without ischemic changes - Troponin mildly elevated; however has trended down 3. DM2 - will monitor glucose; possibly will become elevated given that he is on corticosteroids - c/w insulin sliding scale 4. DLP - c/w Atorvastatin 5. HTN - BP well controlled - c/w triamterene / HCTZ 6. CAD s/p stent - Hx of RI - c/w ASA, Atorvastatin, Lisinopril, Nitroglycerin 7. DVT prophylaxis - on full anticoagulation with Eliquis VS,Fishbone, I+O VS, Fishbone, I+O Laboratory Tests 04/16/16 05:36 Anion Gap 12, Red Blood Count 4.73, Mean Corpuscular Volume 91.2, Mean Corpuscular Hemoglobin 31.8, Mean Corpuscular Hemoglobin Concent 34.9, Red Cell Distribution Width 12.9 Vital Signs Date Time Temp Pulse Resp B/P Pulse Ox O2 Delivery O2 Flow Rate FiO2 04/16/16 09:14 150/90 04/16/16 08:00 Nasal Cannula 2.0 04/16/16 04:00 96.7 90 20 96 I&O- Last 24 Hours up to 6 AM 04/16/16 06:00 Intake Total 1580 ml Output Total 2530 ml Balance -950 ml ABIDA DASILVA MD Apr 16, 2016 13:30
[2016-04-16 16:00] VITALS: BP 132/84
[2016-04-16 18:45] VITALS: BP 158/85
[2016-04-16 20:15] VITALS: BP 160/93
[2016-04-16] MEDS: ATORVASTATIN 10 MG TAB PO SCH (20:51)
[2016-04-16] MEDS ORDERED: LEVEMIR (INSULIN DETEMIR) 1 UNITS/0.01ML SC SCH (21:00)
[2016-04-17] MEDS: IPRATROPIUM 0.5MG/ALBUTEROL 2.5MG INH SOL UD 3ML (DUONEB)(J7620) NEB SCH ×2 (01:09→08:32)
[2016-04-17] MEDS: methylPREDNISolone INJ 125 MG/2 ML VIAL (J2930) IV SCH (04:16)
[2016-04-17 05:30] VITALS: BP 172/87
[2016-04-17 06:38] LABS: MEAN CORPUSCULAR HEMOGLOBIN 32.2 pg (27.0-33.0); MEAN CORPUSCULAR HGB CONC 34.7 g/dl (32.0-36.5); MEAN CORPUSCULAR VOLUME 92.6 fl (80.0-96.0); RED CELL DISTRIBUTION WIDTH 13.3 % (11.5-14.5); WHITE BLOOD COUNT 16.4 K/mm3 (4.0-10.0)
[2016-04-17 06:55] LABS: ALBUMIN 4.1 GM/DL (3.2-5.2); ANION GAP 14 MEQ/L (8-16); BLOOD UREA NITROGEN 24 MG/DL (7-18); CALCIUM LEVEL 9.2 MG/DL (8.8-10.2); CARBON DIOXIDE LEVEL 21 MEQ/L (21-32); CHLORIDE LEVEL 97 MEQ/L (98-107); CREATININE FOR GFR 1.19 MG/DL (0.70-1.30); GLOMERULAR FILTRATION RATE > 60.0 (>42); GLUCOSE, FASTING 365 MG/DL (83-110); PHOSPHORUS LEVEL 3.9 MG/DL (2.5-4.9); POTASSIUM SERUM 4.3 MEQ/L (3.5-5.1); SODIUM LEVEL 132 MEQ/L (136-145)
[2016-04-17] MEDS ORDERED: LEVEMIR (INSULIN DETEMIR) 1 UNITS/0.01ML SC SCH (09:00)
[2016-04-17] MEDS: HumaLOG INSULIN (NovoLOG) PER UNIT SC SCH ×2 (09:40→12:39)
[2016-04-17 09:41] VITALS: BP 130/70
[2016-04-17] MEDS: DOCUSATE SODIUM 100 MG CAP PO SCH (09:41)
[2016-04-17] MEDS: LISINOPRIL 10 MG TAB PO SCH (09:41)
[2016-04-17] MEDS: APIXABAN 5 MG TAB (ELIQUIS) PO SCH (09:41)
[2016-04-17] MEDS: ASPIRIN 81 MG ENTERIC TAB PO SCH (09:41)
[2016-04-17] MEDS: LevoFLOXacin 500 MG in APPROPRIATE DILUENT 1 EA IV SCH (09:41)
[2016-04-17] MEDS ORDERED: PRED10TA FT (11:02)
[2016-04-17] MEDS ORDERED: LEVA750T PO (11:02)
[2016-04-17] MEDS ORDERED: ADV250INH INH (11:02)
[2016-04-17] MEDS ORDERED: PROA1AER INH (11:02)
--- NOTE | 2016-04-17 15:31 | DSES ---
DATE OF ADMISSION: 04/15/2016 DATE OF DISCHARGE: 04/17/2016 ATTENDING PHYSICIAN: Obdulio Pham MD DICTATING PHYSICIAN: Obdulio Pham MD PRIMARY CARE PROVIDER: Ki Patiño NP REFERRING PHYSICIAN: None. CONSULTING PHYSICIAN: None. CONDITION ON DISCHARGE: Stable. FINAL DIAGNOSIS: Acute hypoxic respiratory failure, likely secondary to exacerbation of interstitial lung disease, less likely secondary to community acquired pneumonia. PROCEDURES: None. HISTORY OF PRESENT ILLNESS: The patient is a 76-year-old male with a past medical history of diabetes mellitus type 2, dyslipidemia, hypertension, coronary artery disease, status post stent, history of myocardial infarction, history of asbestosis exposure, who presented to the emergency room with complaints of shortness of breath and productive cough. He noted that he had subjective fevers. No chills. He was admitted to the progressive care unit (PCU) for possible community acquired pneumonia. The patient subsequently had a CTA completed in the emergency room, which revealed no evidence of pulmonary artery embolism, mild cardiomegaly with left ventricular enlargement and hypertrophy, small bilateral pleural effusions, right greater than left, bibasilar atelectasis and pulmonary venous hypertension bordering mild interstitial pulmonary edema, mild aneurysmal dilation of the ascending thoracic aorta measuring 4.8 cm x 4.7 cm transverse dimension, 13 mm subcarinal node, calcified pleural plaques bilaterally consistent with asbestosis related disease. HOSPITALIZATION COURSE: 1. Acute respiratory failure, likely secondary to exacerbation of interstitial lung disease, less likely community acquired pneumonia. Clinically, he is doing better, breathing has improved. Physical did not reveal any wheezing or rhonchi. Chest x-ray on 04/15/2016 revealed chronic interstitial fibrosis, right lower lobe atelectasis versus infiltrate, small right pleural effusion and cardiomegaly. CTA did not reveal any signs of pneumonia. Influenza has been negative. Blood cultures have been no growth after 48 hours. The patient was started on Levaquin, DuoNeb and Solu-Medrol. Upon discharge, the patient has been transitioned to Levaquin orally and prednisone orally for tapering dose. 2. Elevated troponin, likely secondary to demand ischemia. No chest pain at this time. EKG is without ischemic changes. Troponin is mildly elevated; however, have been trending down. 3. Diabetes mellitus type 2. The patient's glucose was initially elevated after he was started on corticosteroids. He was started on Levemir while he was an inpatient. Upon discharge, he has been restarted on his oral medications. 4. Dyslipidemia. Continue with atorvastatin. 5. Hypertension. Blood pressure has been well controlled. We will continue with triamterene and hydrochlorothiazide. 6. Coronary artery disease, status post stent. 7. History of myocardial infarction. Continue aspirin, atorvastatin, lisinopril and nitroglycerin. 8. Deep vein thrombosis (DVT) prophylaxis. He has been on full anticoagulation with Eliquis. I have discussed the reason the patient was on Eliquis with Dr. Tavares his desktop administrator, Dr. Tavares noted that the patient has a history of paroxysmal atrial fibrillation; however, based on his office records there is no definitive evidence of this. If there is any reason to stop his Eliquis, it can be discontinued. At this point, I have continued with Eliquis, and I have explained the risks and benefits of staying on Eliquis, risk of removing his Eliquis causing the possibility of stroke if he does have paroxysmal atrial fibrillation and the risk of continuing it including bleeding complications. DISCHARGE MEDICATIONS: The patient was discharged home with: - albuterol two puffs inhaled every four hours as needed for dyspnea - levofloxacin 750 mg by mouth daily for the next 5 days - prednisone 10 mg as directed on tapering dose - Advair inhaled 250/50 one puff inhaled twice a day - Eliquis 5 mg by mouth twice a day - aspirin 81 mg by mouth daily - atorvastatin 10 mg by mouth at night - hydrochlorothiazide and triamterene one capsule by mouth every two days - Lisinopril 10 mg by mouth daily - metformin 500 mg by mouth twice a day - nitroglycerin 0.4 mg sublingual every 5 minutes as needed for chest pain - sitagliptin 100 mg by mouth daily DISCHARGE INSTRUCTIONS: The patient has been advised to followup with his primary care provider and technical sales support specialist within the next 1 to 2 weeks. He has been advised to remain compliant with treatment plan and medications and return to the emergency room if he experiences any problems. CODE STATUS: FULL CODE. Time spent on discharge: 35 minutes.
[2016-04-17] MEDS ORDERED: methylPREDNISolone INJ 40 MG/1 ML VIAL (J2920) IV SCH (16:00)
--- NOTE | 2016-04-17 16:10 | EDDOCDS ---
Physician Documentation [facility] Name: Sherif Wolf Age: 76 yrs Sex: Male : 1940 Arrival Date: 04/15/2016 Time: 09:01 Bed 9 Private MD: Disposition: 04/15/16 13:21 Hospitalization ordered by Herrera Soria for Inpatient Admission. Preliminary diagnosis is Pneumonia due to other specified bacteria. - Bed requested for PCU. - Status is Inpatient Admission. jmk - Condition is Stable. - Problem is new. - Symptoms are unchanged. Historical: - Allergies: no known allergies; - Home Meds: 1. aspirin 81 mg Oral TbEC 1 tab once daily 2. atorvastatin 10 mg oral tab 1 tab once daily 3. bupropion HCl 100 mg Oral tab 2 times per day 4. Eliquis 5 mg oral tab 1 tab 2 times per day 5. Januvia 50 mg oral tab 2 tabs once daily 6. lisinopril 10 mg Oral tab once daily 7. metformin 500 mg Oral tab 1 tab 2 times per day 8. nitroglycerin 0.4 mg SL subl 1 tab every 5 minutes X3 as needed 9. triamterene-hydrochlorothiazid 37.5-25 mg Oral cap 1 cap once daily - PMHx: Diabetes - NIDDM: controlled; Hypercholesterolemia; Hypertension; NM; - PSHx: Cardiac stents; - Social history: Smoking status: Patient states was never smoker of tobacco. No barriers to communication noted, The patient speaks fluent Lebanese, Speaks appropriately for age. - Family history: Not pertinent. - : The pt / caregiver states he / she is on anticoagulants: Eliquis Home medication list is obtained from the patient. - Exposure Risk Screening:: None identified. Vital Signs: 04/15 09:03 BP 174 / 101; Pulse 59; Resp 26 S; Temp 97.1(O); Pulse Ox 95% on R/A; Weight 92.99 kg / dd6 205.01 lbs (R); Height 5 ft. 10 in. (177.80 cm) (R); 10:16 BP 177 / 81 (auto/); jmk 10:16 Pulse 108 MON; Pulse Ox 96% ; jmk 10:31 BP 155 / 88 (auto/); jmk 10:31 Pulse 108 MON; Resp 20; Pulse Ox 96% ; jmk 10:46 BP 176 / 94 (auto/); jmk 10:46 Pulse 110 MON; Pulse Ox 94% ; jmk 11:01 BP 166 / 104 (auto/); jmk 11:01 Pulse 110 MON; Pulse Ox 95% ; jmk 11:16 BP 173 / 98 (auto/); jmk 11:16 Pulse 112 MON; Pulse Ox 93% ; jmk 12:04 BP 154 / 104 (auto/); Resp 20; jmk 12:05 Pulse 108 MON; Pulse Ox 95% ; jmk 14:32 BP 126 / 84; Pulse 100; Resp 18; Temp 97.6(O); Pulse Ox 96% 4 lpm ; jmk 09:03 Body Mass Index 29.41 (92.99 kg, 177.80 cm) dd6 MDM: 09:13 -Blood Culture (Adults Only), peripheral from different site, or from device/port/PICC sd1 etc. if present ordered. 09:13 Manager Cash/Pulse Ox/q 15 min VS ordered. sd1 09:13 IV Saline Lock ordered. sd1 09:13 Oxygen at 4L/Min NC or Home dosage ordered. sd1 09:13 Rhythm Strip to chart ordered. sd1 09:14 B-Type Natiuretic Peptide Ordered. EDMS 09:14 Basic Metabolic Profile Ordered. EDMS 09:14 CBC with Diff Ordered. EDMS 09:14 Cardiac Injury Profile Ordered. EDMS 09:14 Troponin Ordered. EDMS 09:15 -Blood Culture Ordered. EDMS 09:15 Chest, 1 View Ordered. EDMS 09:15 ECG WITH READING ER PHYS+CARDIAG ordered. EDMS 09:20 -Blood Culture (Adults Only), peripheral from different site, or from device/port/PICC lbd etc. if present complete. 09:25 BLOOD CULTURES Ordered. EDMS 09:45 Misc. Nursing Order ordered. sd1 10:02 Albuterol-Ipratropium 1 neb Nebulizer every 20 minutes x3 ordered. sd1 10:02 Moxifloxacin 400 mg IV at 400 mg/hr once over 60 mins ordered. sd1 10:02 Basic Metabolic Profile Reviewed. sd1 10:02 CBC with Diff Reviewed. sd1 10:02 Cardiac Injury Profile Reviewed. sd1 10:02 Troponin Reviewed. sd1 10:03 Call Respiratory ordered. sd1 10:03 Lactic Acid (Pulido tube on ice) Ordered. EDMS 10:04 -Arterial Blood Gas Ordered. EDMS 10:04 -Influenza A&B Rapid Antigen - Nose Ordered. EDMS 10:04 Call Respiratory complete. lbd 10:06 Acetaminophen Tablet 325 mg PO once ordered. jmk 10:07 Financial registration complete. lg 10:23 [facility] Payment Agreement was scanned into [employer] and attached to record. lg 11:35 B-Type Natiuretic Peptide Reviewed. sd1 11:35 -Arterial Blood Gas Reviewed. sd1 11:35 Lactic Acid (Pulido tube on ice) Reviewed. sd1 11:35 -Influenza A&B Rapid Antigen - Nose Reviewed. sd1 11:35 Chest, 1 View Reviewed. sd1 11:38 Redraw CIP &Troponin (put time in details section) ordered. sd1 11:40 CT Chest Angio R/O PE Ordered. EDMS 11:40 Redraw CIP &Troponin (put time in details section) complete. lbd 11:43 CARDIAC MARKER PANEL Ordered. EDMS 11:48 BED REQUEST+ADM ordered. EDMS 12:49 CARDIAC MARKER PANEL Reviewed. sd1 13:34 CONSISTENT CARBOHYDRATES ordered. EDMS 13:37 Admission / Observation Status ordered. EDMS 14:03 SPUTUM CULTURE AND GRAM STAIN Ordered. EDMS 14:05 CARDIAC MARKER PANEL Ordered. EDMS 01/ 12:57 CT Chest Angio R/O PE Reviewed. sd1 01 11:37 T-Sheet-- Draft Copy was scanned into [employer] and attached to record. gb 11:37 ECG/EKG was scanned into [employer] and attached to record. gb Administered Medications: 04/15 10:11 Drug: Albuterol-Ipratropium 1 neb [ipratropium-albuterol 0.5 mg-3 mg(2.5 mg base)/3 mL kt1 nebulization soln (1 neb)] Route: Nebulizer; 10:25 Drug: Albuterol-Ipratropium 1 neb [ipratropium-albuterol 0.5 mg-3 mg(2.5 mg base)/3 mL kt1 nebulization soln (1 neb)] Route: Nebulizer; 10:25 Follow up: Response: Nebulizer completed kt1 10:36 Follow up: Response: Nebulizer completed kt1 10:26 Drug: Moxifloxacin 400 mg [moxifloxacin 400 mg/250 mL-sodium chloride(iso) intravenous enrico piggyback] Route: IV; Rate: 400 mg/hr; Infused Over: 60 mins; Site: right antecubital; 10:26 Drug: Acetaminophen 325 mg [acetaminophen 325 mg tablet (1 tabs)] Route: PO; [facility] 12:06 Follow up: Response: Pain is decreased [facility] 10:37 Drug: Albuterol-Ipratropium 1 neb [ipratropium-albuterol 0.5 mg-3 mg(2.5 mg base)/3 mL kt1 nebulization soln (1 neb)] Route: Nebulizer; 10:47 Follow up: Response: Nebulizer completed kt1 Signatures: Dispatcher [employer] EDAixa Hogan MD MD sd1 Dinah Kenny, Locomotive Crane Engineer Unit lbd Ricardo Duke,RN RN Michelle Ramon, Reg Reg gb Jazmyn Jett, Reg Reg lg Sherif Peterson RN RN mlb1 Katherine Carmona, INSPECTOR SEMICONDUCTOR WAFER INSPECTOR SEMICONDUCTOR WAFER Ml Benavides kt1 The chart was reviewed and I authenticate all verbal orders and agree with the evaluation and treatment provided.Corrections: (The following items were deleted from the chart) 13:40 13:12 REGULAR+DIET ordered. EDSD EDMS Attachments: 10:23 [facility] Payment Agreement lg 04/17 11:37 T-Sheet-- Draft Copy gb 11:37 ECG/EKG gb Chart Complete MTDD
--- NOTE | 2016-04-17 16:10 | EDDOCDS ---
Physician Documentation [facility] Name: Sherif Wolf Age: 76 yrs Sex: Male : 1940 Arrival Date: 04/15/2016 Time: 09:01 Bed 9 Private MD: Disposition: 04/15/16 13:21 Hospitalization ordered by Herrera Soria for Inpatient Admission. Preliminary diagnosis is Pneumonia due to other specified bacteria. - Bed requested for PCU. - Status is Inpatient Admission. jmk - Condition is Stable. - Problem is new. - Symptoms are unchanged. Historical: - Allergies: no known allergies; - Home Meds: 1. aspirin 81 mg Oral TbEC 1 tab once daily 2. atorvastatin 10 mg oral tab 1 tab once daily 3. bupropion HCl 100 mg Oral tab 2 times per day 4. Eliquis 5 mg oral tab 1 tab 2 times per day 5. Januvia 50 mg oral tab 2 tabs once daily 6. lisinopril 10 mg Oral tab once daily 7. metformin 500 mg Oral tab 1 tab 2 times per day 8. nitroglycerin 0.4 mg SL subl 1 tab every 5 minutes X3 as needed 9. triamterene-hydrochlorothiazid 37.5-25 mg Oral cap 1 cap once daily - PMHx: Diabetes - NIDDM: controlled; Hypercholesterolemia; Hypertension; DE; - PSHx: Cardiac stents; - Social history: Smoking status: Patient states was never smoker of tobacco. No barriers to communication noted, The patient speaks fluent Thai, Speaks appropriately for age. - Family history: Not pertinent. - : The pt / caregiver states he / she is on anticoagulants: Eliquis Home medication list is obtained from the patient. - Exposure Risk Screening:: None identified. Vital Signs: 04/15 09:03 BP 174 / 101; Pulse 59; Resp 26 S; Temp 97.1(O); Pulse Ox 95% on R/A; Weight 92.99 kg / dd6 205.01 lbs (R); Height 5 ft. 10 in. (177.80 cm) (R); 10:16 BP 177 / 81 (auto/); jmk 10:16 Pulse 108 MON; Pulse Ox 96% ; jmk 10:31 BP 155 / 88 (auto/); jmk 10:31 Pulse 108 MON; Resp 20; Pulse Ox 96% ; jmk 10:46 BP 176 / 94 (auto/); jmk 10:46 Pulse 110 MON; Pulse Ox 94% ; jmk 11:01 BP 166 / 104 (auto/); jmk 11:01 Pulse 110 MON; Pulse Ox 95% ; jmk 11:16 BP 173 / 98 (auto/); jmk 11:16 Pulse 112 MON; Pulse Ox 93% ; jmk 12:04 BP 154 / 104 (auto/); Resp 20; jmk 12:05 Pulse 108 MON; Pulse Ox 95% ; jmk 14:32 BP 126 / 84; Pulse 100; Resp 18; Temp 97.6(O); Pulse Ox 96% 4 lpm ; jmk 09:03 Body Mass Index 29.41 (92.99 kg, 177.80 cm) dd6 MDM: 09:13 -Blood Culture (Adults Only), peripheral from different site, or from device/port/PICC sd1 etc. if present ordered. 09:13 Machine Tool Electrician/Pulse Ox/q 15 min VS ordered. sd1 09:13 IV Saline Lock ordered. sd1 09:13 Oxygen at 4L/Min NC or Home dosage ordered. sd1 09:13 Rhythm Strip to chart ordered. sd1 09:14 B-Type Natiuretic Peptide Ordered. EDMS 09:14 Basic Metabolic Profile Ordered. EDMS 09:14 CBC with Diff Ordered. EDMS 09:14 Cardiac Injury Profile Ordered. EDMS 09:14 Troponin Ordered. EDMS 09:15 -Blood Culture Ordered. EDMS 09:15 Chest, 1 View Ordered. EDMS 09:15 ECG WITH READING ER PHYS+CARDIAG ordered. EDMS 09:20 -Blood Culture (Adults Only), peripheral from different site, or from device/port/PICC lbd etc. if present complete. 09:25 BLOOD CULTURES Ordered. EDMS 09:45 Misc. Nursing Order ordered. sd1 10:02 Albuterol-Ipratropium 1 neb Nebulizer every 20 minutes x3 ordered. sd1 10:02 Moxifloxacin 400 mg IV at 400 mg/hr once over 60 mins ordered. sd1 10:02 Basic Metabolic Profile Reviewed. sd1 10:02 CBC with Diff Reviewed. sd1 10:02 Cardiac Injury Profile Reviewed. sd1 10:02 Troponin Reviewed. sd1 10:03 Call Respiratory ordered. sd1 10:03 Lactic Acid (Pulido tube on ice) Ordered. EDMS 10:04 -Arterial Blood Gas Ordered. EDMS 10:04 -Influenza A&B Rapid Antigen - Nose Ordered. EDMS 10:04 Call Respiratory complete. lbd 10:06 Acetaminophen Tablet 325 mg PO once ordered. jmk 10:07 Financial registration complete. lg 10:23 [facility] Payment Agreement was scanned into [email or web address] and attached to record. lg 11:35 B-Type Natiuretic Peptide Reviewed. sd1 11:35 -Arterial Blood Gas Reviewed. sd1 11:35 Lactic Acid (Pulido tube on ice) Reviewed. sd1 11:35 -Influenza A&B Rapid Antigen - Nose Reviewed. sd1 11:35 Chest, 1 View Reviewed. sd1 11:38 Redraw CIP &Troponin (put time in details section) ordered. sd1 11:40 CT Chest Angio R/O PE Ordered. EDMS 11:40 Redraw CIP &Troponin (put time in details section) complete. lbd 11:43 CARDIAC MARKER PANEL Ordered. EDMS 11:48 BED REQUEST+ADM ordered. EDMS 12:49 CARDIAC MARKER PANEL Reviewed. sd1 13:34 CONSISTENT CARBOHYDRATES ordered. EDMS 13:37 Admission / Observation Status ordered. EDMS 14:03 SPUTUM CULTURE AND GRAM STAIN Ordered. EDMS 14:05 CARDIAC MARKER PANEL Ordered. EDMS 01/ 12:57 CT Chest Angio R/O PE Reviewed. sd1 01 11:37 T-Sheet-- Draft Copy was scanned into [email or web address] and attached to record. gb 11:37 ECG/EKG was scanned into [email or web address] and attached to record. gb Administered Medications: 04/15 10:11 Drug: Albuterol-Ipratropium 1 neb [ipratropium-albuterol 0.5 mg-3 mg(2.5 mg base)/3 mL kt1 nebulization soln (1 neb)] Route: Nebulizer; 10:25 Drug: Albuterol-Ipratropium 1 neb [ipratropium-albuterol 0.5 mg-3 mg(2.5 mg base)/3 mL kt1 nebulization soln (1 neb)] Route: Nebulizer; 10:25 Follow up: Response: Nebulizer completed kt1 10:36 Follow up: Response: Nebulizer completed kt1 10:26 Drug: Moxifloxacin 400 mg [moxifloxacin 400 mg/250 mL-sodium chloride(iso) intravenous enrico piggyback] Route: IV; Rate: 400 mg/hr; Infused Over: 60 mins; Site: right antecubital; 10:26 Drug: Acetaminophen 325 mg [acetaminophen 325 mg tablet (1 tabs)] Route: PO; [facility] 12:06 Follow up: Response: Pain is decreased [facility] 10:37 Drug: Albuterol-Ipratropium 1 neb [ipratropium-albuterol 0.5 mg-3 mg(2.5 mg base)/3 mL kt1 nebulization soln (1 neb)] Route: Nebulizer; 10:47 Follow up: Response: Nebulizer completed kt1 Signatures: Dispatcher [employer] EDAixa Hogan MD MD sd1 Dinah Kenny, Refrigerator Repair Technician Unit lbd Ricardo Duke,RN RN Michelle Ramon, Reg Reg gb Jazmyn Jett, Reg Reg lg Sherif Peterson RN RN mlb1 Katherine Carmona, RN RADIATION ONCOLOGY RN RADIATION ONCOLOGY Ml Benavides kt1 The chart was reviewed and I authenticate all verbal orders and agree with the evaluation and treatment provided.Corrections: (The following items were deleted from the chart) 13:40 13:12 REGULAR+DIET ordered. EDVA EDMS Attachments: 10:23 [facility] Payment Agreement lg 04/17 11:37 T-Sheet-- Draft Copy gb 11:37 ECG/EKG gb Chart Complete MTDD
--- NOTE | 2016-04-17 16:10 | EDDOCDS ---
Nurse's Notes [facility] Name: Sherif Wolf Age: 76 yrs Sex: Male : 1940 Arrival Date: 04/15/2016 Time: 09:01 Bed 9 Private MD: Diagnosis: Pneumonia due to other specified bacteria Presentation: 04/15 09:05 Presenting complaint: Patient states: SOB began at 0400 this am. Adult Sepsis mlb1 Screening: The patient does not have new or worsening altered mentation. Patient has a respiratory rate of greater than or equal to 22 (1 point). Systolic blood pressure is greater than 100. Patient has a qSOFA score of 0- Negative Sepsis Screen. Suicide/Homicide risk assessment- the patient denies having any suicidal and/or homicidal ideations and does not present with any other emotional, behavioral or mental health complaints. Status: Patient is not a children's service supervisor or dependent. Transition of care: patient was not received from another setting of care. 09:05 Acuity: PRANEETH Level 3 mlb1 09:05 Method Of Arrival: Walkin/Carried/Asstd mlb1 Triage Assessment: 09:08 General: Appears distressed, Behavior is appropriate for age, cooperative. Pain: Denies mlb1 pain. Respiratory: Onset: The symptoms/episode began/occurred this morning, Airway is patent Respiratory effort is labored. Historical: - Allergies: no known allergies; - Home Meds: 1. aspirin 81 mg Oral TbEC 1 tab once daily 2. atorvastatin 10 mg oral tab 1 tab once daily 3. bupropion HCl 100 mg Oral tab 2 times per day 4. Eliquis 5 mg oral tab 1 tab 2 times per day 5. Januvia 50 mg oral tab 2 tabs once daily 6. lisinopril 10 mg Oral tab once daily 7. metformin 500 mg Oral tab 1 tab 2 times per day 8. nitroglycerin 0.4 mg SL subl 1 tab every 5 minutes X3 as needed 9. triamterene-hydrochlorothiazid 37.5-25 mg Oral cap 1 cap once daily - PMHx: Diabetes - NIDDM: controlled; Hypercholesterolemia; Hypertension; ME; - PSHx: Cardiac stents; - Social history: Smoking status: Patient states was never smoker of tobacco. No barriers to communication noted, The patient speaks fluent Bermudian, Speaks appropriately for age. - Family history: Not pertinent. - : The pt / caregiver states he / she is on anticoagulants: Eliquis Home medication list is obtained from the patient. - Exposure Risk Screening:: None identified. Screenin:39 Screening information is obtained from the patient. Fall risk: No risks identified. k Assistance ADL's: requires no assistance with activities of daily living. Abuse/DV Screen: The patient / caregiver reports he/she is: not in a situation that causes fear, pain or injury. Nutritional screening: No deficits noted. Advance Directives: Currently, there is a health care proxy, moe cuellar. There is an active DNR order There is no living will. There is an active Power of Mail Superintendent, moe cuellar. home support is adequate. Assessment: 09:39 General: Appears in no apparent distress. Cardiovascular: Capillary refill < 3 seconds [facility] Clubbing of nail beds is absent Heart tones S1 S2 present Edema is absent. Rhythm is regular Chest pain is denied. Respiratory: No deficits noted. Airway is patent Respiratory effort is even, unlabored, Respiratory pattern is regular, Breath sounds are absent bilaterally. Breath sounds are clear. GI: Abdomen is non- distended obese. 10:30 General: Appears pleasant and conversive. complete sentences without resp interruption [facility] while at rest. + diffuse headache and medicated for same. 12:28 General: Appears ambulated to bathroom with steady gait. + fatigue with physical [facility] activity which he reports as not at his baseline. monitor is sr/st. denies chest pain.. 13:17 General: Appears presently sitting upright on edge of stretcher. juice provided as per [facility] request. without resp distress when at rest.. awaiting admsiision. 14:22 General: Appears diet has been provided and taken well.. presently resting supine on [employer] stretcher. no observed resp distress when at rest.. 14:38 General: Appears awakened from sleep . without resp distress. denies pain. Monitor is [employer] sr without ectopy. maintaining sat of 96% with 4 l nc. sl intact to right AC space. admitted. Vital Signs: 09:03 BP 174 / 101; Pulse 59; Resp 26 S; Temp 97.1(O); Pulse Ox 95% on R/A; Weight 92.99 kg dd6 (R); Height 5 ft. 10 in. (177.80 cm) (R); 10:16 BP 177 / 81 (auto/); jmk 10:16 Pulse 108 MON; Pulse Ox 96% ; jmk 10:31 BP 155 / 88 (auto/); jmk 10:31 Pulse 108 MON; Resp 20; Pulse Ox 96% ; jmk 10:46 BP 176 / 94 (auto/); jmk 10:46 Pulse 110 MON; Pulse Ox 94% ; jmk 11:01 BP 166 / 104 (auto/); jmk 11:01 Pulse 110 MON; Pulse Ox 95% ; jmk 11:16 BP 173 / 98 (auto/); jmk 11:16 Pulse 112 MON; Pulse Ox 93% ; jmk 12:04 BP 154 / 104 (auto/); Resp 20; jmk 12:05 Pulse 108 MON; Pulse Ox 95% ; jmk 14:32 BP 126 / 84; Pulse 100; Resp 18; Temp 97.6(O); Pulse Ox 96% 4 lpm ; jmk 09:03 Body Mass Index 29.41 (92.99 kg, 177.80 cm) dd6 Vitals: 09:03 Log In Time: April 15, 2016 at 09:01. RN notified that patient meets Red Flag dd6 criteria. ED Course: 09:02 Patient visited by Mazin Melo PCA. dd6 09:02 Patient moved to Waiting dd6 09:05 Patient visited by Sherif Peterson, RN. mlb1 09:06 Triage Initiated mlb1 09:08 Patient visited by Sherif Peterson, RN. mlb1 09:09 Patient moved to 9 mlb1 09:16 Aixa Gamble MD is Attending Physician. sd1 09:16 Patient visited by Aixa Gamble MD. sd1 09:24 Patient visited by Charly Monet. jml1 09:24 EKG done. (by ED staff). Reviewed by Aixa Gamble MD. jml1 09:28 -Blood Culture Sent. kr3 09:28 B-Type Natiuretic Peptide Sent. kr3 09:28 Basic Metabolic Profile Sent. kr3 09:28 CBC with Diff Sent. kr3 09:28 Cardiac Injury Profile Sent. kr3 09:28 Troponin Sent. kr3 09:28 Inserted saline lock: 20 gauge in right antecubital area and blood collected. The kr3 patient tolerated the procedure well. 09:39 The patient / caregiver is instructed regarding the plan of care and ED course. Cardiac jmk monitor on. Pulse ox on. 09:39 No procedures done that require assistance. jmk 09:40 Patient visited by Ricardo Duke,RN. jmk 09:59 BLOOD CULTURES Sent. jmk 10:23 [facility] [place] Payment Agreement was scanned into [employer] and attached to record. lg 10:24 -Arterial Blood Gas Sent. kt1 10:26 -Influenza A&B Rapid Antigen - Nose Sent. jmk 10:27 Chest, 1 View Returned. EDMS 10:51 Patient visited by Charly Monet. jml1 11:33 Patient visited by Katherine Carmona PCA. jlf 11:53 Patient visited by Katherine Carmona PCA. jlf 12:06 CARDIAC MARKER PANEL Sent. jmk 12:18 Patient visited by Katherine Carmona PCA. jlf 13:18 Patient visited by Ricardo Duke,AFUA. jmk 13:20 Herrera Soria DO is Hospitalizing Provider. sd1 13:22 CT Chest Angio R/O PE Returned. EDMS 04/17 11:37 T-Sheet-- Draft Copy was scanned into [employer] and attached to record. gb 11:37 ECG/EKG was scanned into [employer] and attached to record. gb Administered Medications: 04/15 10:11 Drug: Albuterol-Ipratropium 1 neb [ipratropium-albuterol 0.5 mg-3 mg(2.5 mg base)/3 mL kt1 nebulization soln (1 neb)] Route: Nebulizer; 10:25 Drug: Albuterol-Ipratropium 1 neb [ipratropium-albuterol 0.5 mg-3 mg(2.5 mg base)/3 mL kt1 nebulization soln (1 neb)] Route: Nebulizer; 10:25 Follow up: Response: Nebulizer completed kt 10:36 Follow up: Response: Nebulizer completed kt1 10:26 Drug: Moxifloxacin 400 mg [moxifloxacin 400 mg/250 mL-sodium chloride(iso) intravenous enrico piggyback] Route: IV; Rate: 400 mg/hr; Infused Over: 60 mins; Site: right antecubital; 10:26 Drug: Acetaminophen 325 mg [acetaminophen 325 mg tablet (1 tabs)] Route: PO; jmk 12:06 Follow up: Response: Pain is decreased jmk 10:37 Drug: Albuterol-Ipratropium 1 neb [ipratropium-albuterol 0.5 mg-3 mg(2.5 mg base)/3 mL kt1 nebulization soln (1 neb)] Route: Nebulizer; 10:47 Follow up: Response: Nebulizer completed kt1 RT: 10:15 ABG's drawn from right radial artery pressure held for 5 minutes no bleeding noted kt1 pressure bandage applied specimen sent pt. tolerated well. 10:15 Initial Med Neb Given as ordered Patient was instructed and evaluated on procedure kt1 Patient tolerated procedure well without adverse effect. Respiratory: Breath sounds are diminished bilaterally. Breath sounds with wheezes in left posterior upper lobe and left posterior lower lobe at expiration. Order Results: Lab Order: B-Type Natiuretic Peptide; SPEC'M 04/15/16 09:26 Test: BRAIN NATRIURETIC PEPTIDE; Value: 435; Range: <100; Abnormal: Above high normal; Units: PG/ML; Status: F Lab Order: Basic Metabolic Profile; SPEC'M 04/15/16 09:26 Test: GLUCOSE, FASTING; Value: 257; Range: 83-110; Abnormal: Above high normal; Units: MG/DL; Status: F Test: BLOOD UREA NITROGEN; Value: 14; Range: 7-18; Units: MG/DL; Status: F Test: CREATININE FOR GFR; Value: 0.96; Range: 0.70-1.30; Units: MG/DL; Status: F Test: GLOMERULAR FILTRATION RATE; Value: > 60.0; Range: >42; Status: F Test: SODIUM LEVEL; Value: 138; Range: 136-145; Units: MEQ/L; Status: F Test: POTASSIUM SERUM; Value: 3.6; Range: 3.5-5.1; Units: MEQ/L; Status: F Test: CHLORIDE LEVEL; Value: 103; Range: 98-107; Units: MEQ/L; Status: F Test: CARBON DIOXIDE LEVEL; Value: 24; Range: 21-32; Units: MEQ/L; Status: F Test: ANION GAP; Value: 11; Range: 8-16; Units: MEQ/L; Status: F Test: CALCIUM LEVEL; Value: 8.8; Range: 8.8-10.2; Units: MG/DL; Status: F Test Note: ; Units are mL/min/1.73 m2 Chronic Kidney Disease Staging per NKF: Stage I & II GFR >=60 Normal to Mildly Decreased Stage III GFR 30-59 Moderately Decreased Stage IV GFR 15-29 Severely Decreased Stage V GFR <15 Very Little GFR Left ESRD GFR <15 on DIRECTOR OF [employer] Lab Order: CBC with Diff; SPEC'M 04/15/16 09:26 Test: WHITE BLOOD COUNT; Value: 9.5; Range: 4.0-10.0; Units: K/mm3; Status: F Test: RED BLOOD COUNT; Value: 4.78; Range: 4.30-6.10; Units: M/mm3; Status: F Test: HEMOGLOBIN; Value: 15.0; Range: 14.0-18.0; Units: g/dl; Status: F Test: HEMATOCRIT; Value: 43.6; Range: 42.0-52.0; Units: %; Status: F Test: MEAN CORPUSCULAR VOLUME; Value: 91.1; Range: 80.0-96.0; Units: fl; Status: F Test: MEAN CORPUSCULAR HEMOGLOBIN; Value: 31.4; Range: 27.0-33.0; Units: pg; Status: F Test: MEAN CORPUSCULAR HGB CONC; Value: 34.5; Range: 32.0-36.5; Units: g/dl; Status: F Test: RED CELL DISTRIBUTION WIDTH; Value: 13.1; Range: 11.5-14.5; Units: %; Status: F Test: PLATELET COUNT, AUTOMATED; Value: 233; Range: 150-450; Units: k/mm3; Status: F Test: NEUTROPHILS %; Value: 72.2; Range: 36.0-66.0; Abnormal: Above high normal; Units: %; Status: F Test: LYMPH %; Value: 16.7; Range: 24.0-44.0; Abnormal: Below low normal; Units: %; Status: F Test: MONO %; Value: 6.5; Range: 0.0-5.0; Abnormal: Above high normal; Units: %; Status: F Test: EOS %; Value: 2.0; Range: 0.0-3.0; Units: %; Status: F Test: BASO %; Value: 0.5; Range: 0.0-1.0; Units: %; Status: F Test: LARGE UNSTAINED CELL %; Value: 2.2; Range: 0.0-4.0; Units: %; Status: F Test: NEUTROPHILS #; Value: 6.9; Range: 1.8-7.7; Units: K/mm3; Status: F Test: LYMPH #; Value: 1.6; Range: 1.5-4.5; Units: K/mm3; Status: F Test: MONO #; Value: 0.6; Range: 0.0-0.8; Units: K/mm3; Status: F Test: EOS #; Value: 0.2; Range: 0.0-0.50; Units: K/mm3; Status: F Test: BASO #; Value: 0.0; Range: 0.0-0.2; Units: K/mm3; Status: F Test: LARGE UNSTAINED CELL #; Value: 0.2; Range: 0.0-0.4; Units: K/mm3; Status: F Lab Order: Cardiac Injury Profile; SPEC'M 04/15/16 09:26 Test: CPK CREATINE PHOSPHOKINASE; Value: 202; Range: 39-308; Units: U/L; Status: F Test: CK-MB VALUE MASS; Value: 6.8; Range: 0.0-3.6; Abnormal: Above high normal; Units: NG/ML; Status: F Test: MB/CK RELATIVE INDEX; Value: 3.36; Range: < OR =4; Status: F Test Note: ; DIAGNOSIS CRITERIA MMB ng/ml Relative Index (RI) NON-AMI < or = 5 N/A PULIDO ZONE > 5 < or = 4 AMI > 5 > 4 Lab Order: Troponin; SPEC'M 04/15/16 09:26 Test: TROPONIN I; Value: 0.14; Range: < 0.10; Abnormal: Above high normal; Units: NG/ML; Status: F Test Note: ; Troponin I Reference Interval for [employer] LOCI: 99th Percentile= 0.00-0.045 ng/ml Risk Stratification: <= 0.10 ng/ml Decreased Risk for Adverse Clinical Events. 0.10-1.50 ng/ml Increased Risk for Adverse Clinical Events. Evaluation of additional criterion and/or repeat testing in 2-6 hours is suggested to rule out myocardial damage. >= 1.50 ng/ml Indicative of Myocardial Injury. Lab Order: Lactic Acid (Pulido tube on ice); SPEC'M 04/15/16 09:26 Test: LACTIC ACID LEVEL, LACTATE; Value: 2.0; Range: 0.4-2.0; Units: MMOL/L; Status: F Lab Order: -Arterial Blood Gas; SPEC'M 04/15/16 10:03 Test: ABG pH (ARTERIAL); Value: 7.424; Range: 7.350-7.450; Units: UNITS; Status: F Test: ABG PARTIAL PRESSURE CO2; Value: 28.9; Range: 35.0-45.0; Abnormal: Below low normal; Units: mmHg; Status: F Test: ABG PARTIAL PRESSURE O2; Value: 110.2; Range: 75.0-100.0; Abnormal: Above high normal; Units: mmHg; Status: F Test: ABG TOTAL CO2; Value: 19.4; Range: 23.0-31.0; Abnormal: Below low normal; Units: MEQ/L; Status: F Test: ABG HCO3; Value: 18.5; Range: 22.0-26.0; Abnormal: Below low normal; Units: MEQ/L; Status: F Test: ABG BASE EXCESS; Value: -4.4; Range: -2.0-2.0; Abnormal: Below low normal; Status: F Test: ABG STANDARD HCO3; Value: 20.9; Range: 22.0-26.0; Abnormal: Below low normal; Units: MEQ/L; Status: F Test: ABG O2 SATURATION; Value: 98.5; Range: 95.0-99.0; Units: %; Status: F Test: ABG DEVICE; Value: NASAL RAEGAN; Status: F Lab Order: -Influenza A&B Rapid Antigen - Nose; SPEC'M 04/15/16 10:14 Test: INFLUENZA A RAPID SCR by ICA; Value: INFLUENZA A RESULTS NEGATIVE; Status: F Test: INFLUENZA A RAPID SCR by ICA; Value: Comments:; Status: F Test: INFLUENZA B RAPID SCR by ICA; Value: INFLUENZA B RESULTS NEGATIVE; Status: F Test Note: ; The Influenza test is a direct rapid immunoassay for the qualitative detection of Influenza viral antigen. Cell culture (Viral Culture) testing should be considered to confirm NEGATIVE results and to assist in detecting other viruses that can provide similar clinical symptoms. Please contact the lab within 24 hours ([phone] if confirmatory testing is desired. Lab Order: CARDIAC MARKER PANEL; SPEC'M 04/15/16 12:05 Test: CPK CREATINE PHOSPHOKINASE; Value: 163; Range: 39-308; Units: U/L; Status: F Test: CK-MB VALUE MASS; Value: 5.6; Range: 0.0-3.6; Abnormal: Above high normal; Units: NG/ML; Status: F Test: MB/CK RELATIVE INDEX; Value: 3.43; Range: < OR =4; Status: F Test: TROPONIN I; Value: 0.16; Range: < 0.10; Abnormal: Above high normal; Units: NG/ML; Status: F Test Note: ; DIAGNOSIS CRITERIA MMB ng/ml Relative Index (RI) NON-AMI < or = 5 N/A PULIDO ZONE > 5 < or = 4 AMI > 5 > 4 Radiology Order: Chest, 1 View Test: Chest, 1 View REASON FOR EXAMINATION: Shortness of Breath; CHEST, ONE VIEW:; ; HISTORY: Shortness of breath.; ; COMPARISON: 03/25/2014.; ; An increase in interstitial markings is present in the lungs consistent with; chronic interstitial fibrosis. Patchy density is present in the right lower lobe; consistent with atelectasis or infiltrate. There is a possible small right; pleural effusion. The cardiac silhouette is enlarged. The pulmonary vasculature; is normal in appearance.; ; IMPRESSION:; ; 1. Chronic interstitial fibrosis.; ; 2. Right lower lobe atelectasis or infiltrate.; ; 3. Possible small right pleural effusion.; ; 4. Cardiomegaly.; ; ; Signed by; Tomas Mahoney MD 04/15/2016 10:16 A; Radiology Order: CT Chest Angio R/O PE Test: CT Chest Angio R/O PE REASON FOR EXAMINATION: hypoxia; CTA of chest, 04/15/2016:; ; Indication: Hypoxia, exclude pulmonary artery embolus.; ; Comparison: Chest radiographs 04/30/2015, and 04/15/2016.; ; TECHNIQUE: Following IV injection of 75 ml Isovue 370 mg/ml, 3 mm continuous; spiral axial sections were performed through the chest. Sagittal and coronal; reconstructed images were then created and provided for interpretation.; ; Findings: There is aneurysmal dilatation of the ascending thoracic aorta,; measuring 4.8 cm AP by 4.7 cm transverse dimension. There is no aortic; dissection. The heart is mildly enlarged with left ventricular prominence and; left ventricular hypertrophy. There are scattered mediastinal nodes, largest 13; mm short-axis diameter in the subcarinal location. There are no visualized; pulmonary artery filling defects or findings to suggest pulmonary artery emboli; bilaterally.; ; Compressive atelectasis is seen in the lower lobes bilaterally.; ; There is prominence of pulmonary vasculature consistent with pulmonary venous; hypertension bordering mild interstitial pulmonary edema. There are calcified; pleural plaques bilaterally consistent with asbestos related disease.; ; Visualized portions of the liver, spleen, pancreas, adrenal glands are normal.; There is mild diffuse fatty infiltration of liver. There are small bilateral; pleural effusions, right slightly greater than left. Extensive atherosclerotic; changes persist noted in the celiac artery. There are no visualized lytic or; blastic lesions of bone.; ; Impression:; No evidence of pulmonary artery embolus.; ; Mild cardiomegaly with left ventricular enlargement/hypertrophy. Small bilateral; pleural effusions, right greater than left, bibasilar atelectasis and pulmonary; venous hypertension bordering mild interstitial pulmonary edema.; ; Mild aneurysmal dilatation of the ascending thoracic aorta measuring 4.8 cm AP by; 4.7 cm transverse dimension.; ; 13 mm subcarinal node, mildly enlarged.; ; Calcified pleural plaques bilaterally consistent with asbestos related disease.; ; ; ; ; Unreviewed; Outcome: 13:21 Decision to Hospitalize by Provider. sd1 14:38 Discharge Assessment: Patient awake, alert and oriented x 3. No cognitive and/or jmk functional deficits noted. Patient verbalized understanding of disposition instructions. patient administered narcotics - no. The following High Risk Discharge criteria are identified: None. Condition: good. CT Study completed. Admission hand-off: Report Faxed Fax receipt verified by brittnee, medical records secretary. Property :Personal belongings accompany Pt. 15:09 Patient left the ED. jmk Signatures: Dispatcher [employer] EDMS Aixa Gamble MD MD sd1 Ricardo Duke,RN RN davidk Michelle Garrison, Reg Reg gb Jazmyn Jett, Reg Reg lg Nicholas, Sherif Massey RN RN mlb1 Ml Rai kt1 Tete Moncada,RN RN kr3 Mazin Melo, FORMSTONE FITTER FORMSTONE FITTER dd6 Charly Monetl1 Katherine Carmona, FORMSTONE FITTER FORMSTONE FITTER jlf Chart Complete MTDD
== END 2016-04-17 14:17 | disposition home or self-care (01) | DRG 196 ==
LOC: M ED 09:01 → M ED INP 13:28 → M PCU 15:08 → M MSPAV 04-16 18:48
PROVIDERS: ADMIT Hospitalist; ATTEND Internal Medicine
DX: J84.114 Acute interstitial pneumonitis (principal); J96.00 Acute respiratory failure, unspecified whether with hypoxia or hypercapnia; I24.8 Other forms of acute ischemic heart disease; E11.9 Type 2 diabetes mellitus without complications; E78.5 Hyperlipidemia, unspecified; E66.9 Obesity, unspecified; I25.10 Atherosclerotic heart disease of native coronary artery without angina pectoris; I10 Essential (primary) hypertension; I25.2 Old myocardial infarction; Z79.84 Long term (current) use of oral hypoglycemic drugs; Z95.5 Presence of coronary angioplasty implant and graft; Z79.82 Long term (current) use of aspirin; Z79.899 Other long term (current) drug therapy; Z79.01 Long term (current) use of anticoagulants; I27.2 Other secondary pulmonary hypertension

== ENCOUNTER → 2016-08-24 | Outpatient (CLI) | payer MEDICARE, OTHER ==
[~2016-08-24] MED LIST: ADV250INH INH; ASPI1TAB PO; ATOR1TAB19 PO; ELIQ5TAB PO; JANU100T PO; LEVA750T PO; LISI10TA4 PO; METF500T PO; NITR4TASL SL; PRED10TA FT; PROA1AER INH; TRIA37.53 PO
--- NOTE | 2016-08-24 13:04 | REP ---
Clinical: Left testicular pain and swelling. Technique: Real time licea scale and color Doppler evaluation of the scrotum and testicles using linear high frequency transducer. Findings: The bilateral testicles and epididymi are relatively age-appropriate and demonstrate normal echogenicity and vascularity without evidence for torsion, infectious/inflammatory process, or mass lesion. Few scattered testicular and epididymal calcifications are likely age-related and insignificant. Small bilateral hydroceles are likely chronic. No varicoceles are identified. A 3 mm left scrotal marito is also identified and again consistent with chronic changes. Right testicle measures 4.8 x 2.0 x 3.2 cm. Left testicle measures 4.7 x 2.0 x 3.1 cm. Impression: 1. Chronic and age related changes as described above including scattered testicular and epididymal calcifications, small left epididymal cyst, small left scrotal marito and minimal chronic-appearing hydroceles. 2. No obvious acute process identified and specifically no obvious left-sided significant abnormality noted. Signed by Long Vegas MD 08/24/2016 12:54 P
== END ==
LOC: M SMT 08:33
PROVIDERS: ATTEND Nurse Practitioner Women's Health
DX: N50.819 Testicular pain, unspecified (principal)

== ENCOUNTER 2016-11-06 09:50 | Emergency (ER) | payer MEDICARE, OTHER ==
[~2016-11-06] VITALS: Ht 177.8 cm; Wt 93.2 kg
[~2016-11-06 09:50] MED LIST changes: -LEVA750T PO; +LEVA750T7 PO; -METF500T PO; +METF500T13 PO; -PRED10TA FT; +PRED10TA2 FT; -PROA1AER INH; +PROAAER10 INH
[2016-11-06] MEDS ORDERED: SIMV80TA PO (10:06)
[2016-11-06] MEDS ORDERED: MAXZ75TA PO (10:06)
[2016-11-06] MEDS ORDERED: BUPR150T5 PO (10:10)
[2016-11-06] MEDS ORDERED: ISOS20TA PO (10:10)
[2016-11-06] MEDS ORDERED: NATE120T4 PO (10:10)
[2016-11-06] MEDS ORDERED: ATEN50TA2 PO (10:10)
[2016-11-06] MEDS ORDERED: REME15TA2 PO (10:10)
[2016-11-06] MEDS ORDERED: FLOM5CAP PO (10:10)
--- NOTE | 2016-11-06 11:02 | REP ---
CT of the brain without IV contrast, emergency room request: Comparisons 2013. There is no hemorrhage. There is no edema, mass effect or midline shift. Cortical stripe is unremarkable. The ventricles and sulci are enlarged, unchanged, compatible with diffuse volume loss. There are hypo densities in the subcortical white matter compatible with chronic microvascular ischemia, unchanged. There is opacification of ethmoid sinus air cell on the left compatible with sinusitis. Impression: There is no hemorrhage, acute infarct or mass. There is evidence for chronic microvascular ischemia and diffuse volume loss. There is opacification of a single left ethmoid sinus air cell compatible with sinusitis. Signed by Fox Yen MD 11/06/2016 10:53 A
[2016-11-06 11:11] LABS: BASO # 0.1 K/mm3 (0.0-0.2); BASO % 0.9 % (0.0-1.0); EOS # 0.3 K/mm3 (0.0-0.50); EOS % 3.3 % (0.0-3.0); LARGE UNSTAINED CELL # 0.2 K/mm3 (0.0-0.4); LARGE UNSTAINED CELL % 2.4 % (0.0-4.0); LYMPH # 2.3 K/mm3 (1.5-4.5); LYMPH % 24.9 % (24.0-44.0); MEAN CORPUSCULAR HGB CONC 35.3 g/dl (32.0-36.5); MEAN CORPUSCULAR VOLUME 90.5 fl (80.0-96.0); MONO # 0.8 K/mm3 (0.0-0.8); MONO % 9.1 % (0.0-5.0); NEUTROPHILS # 5.1 K/mm3 (1.8-7.7); NEUTROPHILS % 59.5 % (36.0-66.0); PLATELET COUNT, AUTOMATED 248 k/mm3 (150-450); RED CELL DISTRIBUTION WIDTH 13.6 % (11.5-14.5); WHITE BLOOD COUNT 8.6 K/mm3 (4.0-10.0)
[2016-11-06 11:27] LABS: ALBUMIN/GLOBULIN RATIO 1.03 (1.00-1.93); ALKALINE PHOSPHATASE 60 U/L (45-117); ALT/SGPT 28 U/L (12-78); ANION GAP 12 MEQ/L (8-16); AST/SGOT 19 U/L (15-37); BILIRUBIN,DIRECT 0.1 MG/DL (0.0-0.2); BILIRUBIN,TOTAL 0.5 MG/DL (0.2-1.0); BLOOD UREA NITROGEN 18 MG/DL (7-18); CALCIUM LEVEL 9.1 MG/DL (8.8-10.2); CARBON DIOXIDE LEVEL 24 MEQ/L (21-32); CHLORIDE LEVEL 101 MEQ/L (98-107); CREATININE FOR GFR 0.99 MG/DL (0.70-1.30); GLOMERULAR FILTRATION RATE > 60.0 (>42); GLUCOSE, FASTING 155 MG/DL (83-110); POTASSIUM SERUM 3.6 MEQ/L (3.5-5.1); SODIUM LEVEL 137 MEQ/L (136-145); TOTAL PROTEIN 7.9 GM/DL (6.4-8.2)
[2016-11-06] MEDS ORDERED: DOXY-278 PO (11:51)
[2016-11-06 12:06] VITALS: BP 137/72
[2016-11-06 12:53] LABS: INR 1.08
--- NOTE | 2016-11-08 02:12 | ECGEPIP ---
Stationary ECG Study [facility] - ED Test Date: 2016-11-06 Pat Name: IRLANDA AZEVEDO Department: Room: - Gender: M Location Director: SABINE : 1940 Requested By: Karlos Chandler PA-C Order Number: [id number] Reading MD: Danny Ricketts Measurements Intervals [place] Rate: 76 P: 30 [place]: 245 QRS: 23 QRSD: 112 T: 180 QT: 422 QTc: 477 Interpretive Statements SINUS RHYTHM WITH FIRST DEGREE AV BLOCK LEFT VENTRICULAR HYPERTROPHY AND ST-T CHANGE SIMILAR TO 04/15/16 Electronically Signed On 11-08-2016 2:12:00 EDT by Danny Ricketts
[2017-02-17] MEDS ORDERED: LISI10TA4 PO (18:24)
== END 2016-11-06 12:07 | disposition home or self-care (01) ==
LOC: M ED 09:50
DX: J01.10 Acute frontal sinusitis, unspecified (principal); I25.10 Atherosclerotic heart disease of native coronary artery without angina pectoris; I25.2 Old myocardial infarction; E11.9 Type 2 diabetes mellitus without complications; I10 Essential (primary) hypertension; N40.0 Benign prostatic hyperplasia without lower urinary tract symptoms; Z79.4 Long term (current) use of insulin; Z79.01 Long term (current) use of anticoagulants

== ENCOUNTER → 2017-01-14 | Outpatient (CLI) | payer MEDICARE, OTHER ==
[~2017-01-14] MED LIST changes: +ATEN50TA2 PO; +BUPR150T5 PO; +DOXY-278 PO; +FLOM5CAP PO; +ISOS20TA PO; +MAXZ75TA PO; +NATE120T4 PO; +REME15TA2 PO; +SIMV80TA PO
== END ==
LOC: M SMT PRO 09:19
PROVIDERS: ATTEND Urology
DX: N52.9 Male erectile dysfunction, unspecified (principal)

== ENCOUNTER 2017-03-07 13:46 | Inpatient (IN) | payer MEDICARE, OTHER ==
[~2017-03-07] VITALS: Ht 179.1 cm; Wt 91.8 kg
[2017-03-07 14:21] LABS: BASO # 0.1 10^3/uL (0.0-0.2); BASO % 0.8 % (0.0-1.0); EOS # 0.4 10^3/uL (0.0-0.50); EOS % 4.6 % (0.0-3.0); IMMATURE GRANULOCYTE % 1.4 % (0-0); LYMPH # 1.8 10^3/uL (1.5-4.5); LYMPH % 21.9 % (24.0-44.0); MEAN CORPUSCULAR HEMOGLOBIN 31.7 pg (27.0-33.0); MEAN CORPUSCULAR HGB CONC 35.7 g/dl (32.0-36.5); MEAN CORPUSCULAR VOLUME 88.9 fl (80.0-96.0); MONO # 0.9 10^3/uL (0.0-0.8); MONO % 10.8 % (0.0-5.0); NEUTROPHILS # 4.8 10^3/uL (1.8-7.7); NEUTROPHILS % 60.5 % (36.0-66.0); PLATELET COUNT, AUTOMATED 210 10^3/uL (150-450)
--- NOTE | 2017-03-07 14:31 | REP ---
Clinical: Near-syncopal episode . Comparison: 02/17/2017 . Findings: The mediastinum and cardiac silhouette are stable and cardiomegaly along with tortuous thoracic aorta again noted. Chronic pleural calcifications are again identified. No obvious acute consolidation, effusion, or pneumothorax. Skeletal structures are intact. Impression: Chronic stable changes. No acute cardiopulmonary process. Signed by Long Vegas MD 03/07/2017 02:23 P
[2017-03-07 14:34] LABS: INR 1.25
--- NOTE | 2017-03-07 14:37 | REP ---
Clinical: Syncope. Comparison: 11/06/2016 . Findings: Age-related atrophy with periventricular leukomalacia and microvascular ischemic changes is appreciated. The ventricles and sulci are symmetric. Pulido-white differentiation is maintained. There is no evidence for acute intracranial hemorrhage, mass/mass effect, pathology or infarction. No extra-axial fluid collection. Calvarium is intact. Paranasal sinuses and mastoid air cells are clear. Impression: Age related atrophy and microvascular ischemic changes. No acute intracranial hemorrhage, infarction, or mass/mass effect. Signed by Long Vegas MD 03/07/2017 02:29 P
[2017-03-07 14:44] LABS: ANION GAP 9 MEQ/L (8-16); BLOOD UREA NITROGEN 14 MG/DL (7-18); CALCIUM LEVEL 8.5 MG/DL (8.8-10.2); CARBON DIOXIDE LEVEL 25 MEQ/L (21-32); CHLORIDE LEVEL 104 MEQ/L (98-107); CREATININE FOR GFR 1.19 MG/DL (0.70-1.30); GLOMERULAR FILTRATION RATE > 60.0 (>42); GLUCOSE, FASTING 228 MG/DL (83-110); POTASSIUM SERUM 4.1 MEQ/L (3.5-5.1); SODIUM LEVEL 138 MEQ/L (136-145)
[2017-03-07 15:37] LABS: ABG BASE EXCESS -3.1 (-2.0-2.0); ABG HCO3 19.5 MEQ/L (22.0-26.0); ABG PARTIAL PRESSURE CO2 28.6 mmHg (35.0-45.0); ABG PARTIAL PRESSURE O2 83.6 mmHg (75.0-100.0); ABG STANDARD HCO3 21.9 MEQ/L (22.0-26.0); ABG TOTAL CO2 20.4 MEQ/L (23.0-31.0); ABG pH (ARTERIAL) 7.451 UNITS (7.350-7.450)
[2017-03-07 16:09] LABS: ALBUMIN 3.4 GM/DL (3.2-5.2); ALBUMIN/GLOBULIN RATIO 1.06 (1.00-1.93); ALKALINE PHOSPHATASE 51 U/L (45-117); ALT/SGPT 31 U/L (12-78); AST/SGOT 24 U/L (7-37); BILIRUBIN,DIRECT 0.1 MG/DL (0.0-0.2); BILIRUBIN,TOTAL 0.4 MG/DL (0.2-1.0); TOTAL PROTEIN 6.6 GM/DL (6.4-8.2)
[2017-03-07] MEDS ORDERED: MIRT15TA3 PO (17:12)
[2017-03-07] MEDS ORDERED: ADV250INH INH (17:12)
[2017-03-07] MEDS ORDERED: LISI10TA4 PO (17:12)
[2017-03-07] MEDS ORDERED: ISOS30TA4 PO (17:12)
[2017-03-07] MEDS ORDERED: PROAAER10 INH (17:12)
[2017-03-07] MEDS ORDERED: PATIENT COMMENT (17:14)
--- NOTE | 2017-03-07 19:00 | REPUSA ---
MRI of the brain. Clinical history: loss of consciousness. Technique: Multiecho multiplanar MRI images of the brain were obtained without administration of cont rast. Diffusion weighted images with ADC mapping was also obtained. Findings: The ventricles and sulci are symmetric and enlarged bilaterally. The brain parenchyma demonstrates di ffuse T2 hyperintensity in the periventricular and subcortical white matter. There is no midline shif t, mass effect, or extra-axial fluid collection. The midline intracranial structures do not demonstra te any gross abnormalities. The cervical cranial junction is intact. The orbits are unremarkable. The visualized paranasal sinuses and mastoid air cells are clear. The osseous structures and superficial soft tissues are unremarkable. The vascular structures demonstrate appropriate flow voids. Impression: No evidence of acute infarct or hemorrhage. Moderate age-related atrophy and chronic smal l vessel ischemic disease.
--- NOTE | 2017-03-07 19:00 | REPUSA ---
CLINICAL HISTORY: EPISODES OF FATIGUE THAT RESULTED IN HIM PASSING OUT TECHNIQUE: Three dimensional dvca-hd-blgpyh angiography is performed of the [place]. The jose eduardo dy was performed without IV contrast agent. FINDINGS: The supraclinoid portions of the internal carotid arteries are of normal shape. The normal bifurcation is seen. The middle cerebral arteries are unremarkable in appearance. The posterior circu lation is visualized and shows no evidence of occlusion or aneurysm formation. The basilar tip is see n and shows no aneurysm formation. There is no evidence of beading to suggest vasculitis. IMPRESSION: MRA of the [place] is within normal limits. Thank you for your kind referral of this patient.
[2017-03-07] MEDS ORDERED: ADVAIR HFA 115/21MCG INHALER INH PRN (19:30)
[2017-03-07] MEDS ORDERED: ALBUTEROL 90 MCG/ACT 8GM HFA INHALER INH PRN (19:30)
[2017-03-07] MEDS ORDERED: ONDANSETRON 4MG/2ML VIAL (J2405) IV PRN (19:45)
[2017-03-07] MEDS ORDERED: DEXTROSE 50% 50 ML SYRINGE IV PRN (20:00)
[2017-03-07] MEDS ORDERED: GLUCAGON FOR INJ 1 MG VIAL (J1610) SC PRN (20:00)
[2017-03-07] MEDS ORDERED: GLUCOSE 4 GM CHEW TABLET PO PRN (20:00)
[2017-03-07 21:55] VITALS: BP 151/73
[2017-03-07 21:59] VITALS: BP 145/72
[2017-03-07 22:03] VITALS: BP 163/79
[2017-03-07] MEDS: HumaLOG INSULIN (NovoLOG) PER UNIT SC SCH (22:11)
[2017-03-07] MEDS: MIRTAZAPINE 15 MG TAB PO SCH (22:13)
[2017-03-07] MEDS: APIXABAN 5 MG TAB (ELIQUIS) PO SCH (22:13)
[2017-03-07] MEDS: SENOKOT S TAB PO SCH (22:13)
[2017-03-07] MEDS: buPROPion **SR TABLET** (ZYBAN) 150MG PO SCH (22:14)
--- NOTE | 2017-03-07 22:17 | HPE ---
DATE OF ADMISSION: 03/07/2017 PRIMARY CARE PROVIDER: CHRISSIE Cardoso. [facility] ELECTRIC FRYING PAN REPAIRER: Is due to see Dr. Brewer on Wednesday. CHIEF COMPLAINT: Syncope. HISTORY OF PRESENT ILLNESS: This is a 76-year-old male patient with history of diabetes, dyslipidemia, hypertension, with exposure to agent orange and also coronary arterial disease with stent placement. Last stent was May 2015, also with history of atrial fibrillation on Eliquis, asbestosis with questionable mesothelioma in the past and also with a questionable history of stroke as per patient. The patient was in his normal state of health, was having breakfast. Subsequently, had episode of passing out, about three episodes in total; in the last one the patient was barely arousable, was brought to the emergency room, found to be in bradyarrhythmia down to 40s and 30s. The patient was arousable. Workup was sent. Denies any head trauma. The patient is a very poor historian. Denies any fevers, chills. Reported mild lightheadedness and mild weakness. In the emergency room, the patient was monitored and mental status progressively improved. Currently is alert, almost back to baseline, but with persistent bradyarrhythmia down to 40s. The patient also reported history of right shoulder pain that has been chronic. Denies any chest pain, pressure or discomfort. Per patient, right shoulder pain has resolved. Furthermore, the patient reported that the patient[facility] provider has noted the patient might have a stroke. The patient is supposed to get workup done. The patient is convinced that he had a stroke. He said he has some right-sided facial numbness and asymmetry. MRI and CT scan done in the emergency room has been negative. ALLERGIES: No known drug allergies. PAST MEDICAL HISTORY: 1. Type 2 diabetes. 2. Dyslipidemia. 3. Hypertension. 4. Coronary arterial disease with stent, last stent May 2015. 5. Asbestosis, questionable mesothelioma. 6. Atrial fibrillation. 7. Questionable history of stroke. PAST SURGICAL HISTORY: Cardiac stents, multiple. SOCIAL HISTORY: The patient never smoked and denies any sick contact, recent travel. Occasional alcohol use, once every two months as per patient. FAMILY HISTORY: Father with emphysema and mother with epilepsy and stomach cancer. REVIEW OF SYSTEMS: The patient reported episodes of syncope, currently back to baseline. Denies any palpitations. Used to have right shoulder pain, and reported questionable right facial numbness or asymmetry. All other review of systems is negative. HOME MEDICATIONS: - ProAir inhalation every four hours as needed - Eliquis 5 mg by mouth twice a day - aspirin 81 mg by mouth daily - atenolol 50 mg by mouth daily - bupropion 150 mg by mouth twice a day - hydrochlorothiazide triamterine 75/50 mg by mouth every other day - isosorbide mononitrate extended release 30 mg by mouth daily - lisinopril 10 mg by mouth daily - metformin 1000 mg by mouth twice a day - mirtazapine 15 mg by mouth at bedtime - nateglinide 120 mg by mouth daily - sublingual nitroglycerin 0.4 mg as needed - Advair Diskus 250/50 mcg inhalation twice a day as needed - Zocor 80 mg by mouth daily - Januvia 100 mg by mouth daily - Flomax 0.4 mg by mouth daily PHYSICAL EXAMINATION: VITAL SIGNS: Temperature 96.6, pulse 47, respirations 18, blood pressure 107/57, pulse oximetry 93% on room air. GENERAL: Patient alert and oriented times three. In no acute distress. HEENT: Normocephalic, atraumatic. Pupils equal bilaterally reactive. PULMONARY: Bilaterally clear to auscultation. CARDIAC: Mildly bradycardic, regular S1, S2. ABDOMEN: Soft, nontender. Positive bowel sounds. EXTREMITIES: No clubbing, cyanosis or edema. NEUROLOGIC: No focal deficit. ELECTROCARDIOGRAM (EKG): Shows first-degree heart block, sinus rhythm, T-wave inversion V4-V6. Heart rate of 48. LABORATORY DATA: WBC eight, hemoglobin and hematocrit 13.2 over 37, platelets 210. Chemistry: Sodium 138, potassium 4.1, chloride 104, bicarbonate 25, BUN 14, creatinine 1.19. Troponin negative times two. TSH within normal limits. ASSESSMENT AND PLAN: This is a 76-year-old male patient with underlying medical history of type 2 diabetes, dyslipidemia, obstructive sleep apnea; as per patient, the continuous positive airway pressure (CPAP) is not working, hypertension, coronary arterial disease with stents, atrial fibrillation, questionable cerebrovascular accident (CVA), asbestosis with questionable mesothelioma. Patient presented with syncopal episodes, likely secondary to bradycardia. 1. Syncope, likely secondary to bradycardia. Consulted cardiology, Dr. Antecol. Serial cardiac enzymes. Telemetry monitoring. Holding beta blockers. Holding hydrochlorothiazide -triamterine, and followup cardiology recommendation. Thyroid stimulating hormone (TSH) appreciated. 2. Hypertension. Holding triamterine hydrochlorothiazide , holding beta blockers. Imdur and lisinopril with holding parameters. Monitor blood pressure. 3. Dyslipidemia. Continue statin. 4. Coronary arterial disease. Patient on Eliquis and aspirin and angiotension-converting enzyme (TALHA) inhibitor with hold parameter. Holding beta ridge given patient is bradyarrhythmic, symptomatic bradycardia and also Imdur with holding parameter as well. Echocardiogram has been ordered. 5. Diabetes. Holding oral medication. Insulin as per protocol. 6. History of asbestosis. Outpatient followup. 7. Atrial fibrillation. Holding beta ridge, given patient is bradyarrhythmic. Consulted cardiology. Continue Eliquis. 8. Obstructive sleep apnea. The patient reported that he is due for another sleep study, and his CPAP has been malfunctioning. SARA protocol while patient is inpatient. 9. Questionable stroke. The patient stated that he had a stroke with some abnormal sensation and asymmetry on the patient's right face. Unable to appreciate during physical exam. MRI has been negative. Will further direct selling counselor the patient that patient mostly likely did not have a stroke, given MRI is negative. 10. Benign prostatic hypertrophy (BPH). Continue Flomax. 11. Deep venous thrombosis (DVT) prophylaxis. Patient is on Eliquis. DISPOSITION: Pending echocardiogram, physical therapy. Will get orthostatics. Monitor blood pressure. Cardiology consultation with Dr. Chapa. Will monitor patient off beta blockers.
[2017-03-08] VITALS (11 sets, daily range): BP systolic 120–180; BP diastolic 61–89; O2SAT 88–96
[2017-03-08 07:36] LABS: MEAN CORPUSCULAR HEMOGLOBIN 31.6 pg (27.0-33.0); MEAN CORPUSCULAR HGB CONC 35.6 g/dl (32.0-36.5); MEAN CORPUSCULAR VOLUME 88.8 fl (80.0-96.0); PLATELET COUNT, AUTOMATED 222 10^3/uL (150-450); RED CELL DISTRIBUTION WIDTH 13.2 % (11.5-14.5); WHITE BLOOD COUNT 8.7 10^3/uL (4.0-10.0)
[2017-03-08] MEDS: HumaLOG INSULIN (NovoLOG) PER UNIT SC SCH ×4 (07:36→21:00)
[2017-03-08 07:51] LABS: INR 1.19
[2017-03-08 07:59] LABS: ANION GAP 10 MEQ/L (8-16); BLOOD UREA NITROGEN 15 MG/DL (7-18); CALCIUM LEVEL 9.2 MG/DL (8.8-10.2); CARBON DIOXIDE LEVEL 27 MEQ/L (21-32); CHLORIDE LEVEL 103 MEQ/L (98-107); GLOMERULAR FILTRATION RATE > 60.0 (>42); GLUCOSE, FASTING 150 MG/DL (83-110); POTASSIUM SERUM 3.9 MEQ/L (3.5-5.1); SODIUM LEVEL 140 MEQ/L (136-145)
[2017-03-08] MEDS: SENOKOT S TAB PO SCH ×2 (08:35→21:57)
[2017-03-08] MEDS: buPROPion **SR TABLET** (ZYBAN) 150MG PO SCH ×2 (08:35→21:57)
[2017-03-08] MEDS: ASPIRIN 81 MG ENTERIC TAB PO SCH (08:35)
[2017-03-08] MEDS: TAMSULOSIN 0.4 MG CAP PO SCH (08:35)
[2017-03-08] MEDS: SIMVASTATIN 40 MG TAB PO SCH (08:35)
[2017-03-08] MEDS: LISINOPRIL 10 MG TAB PO SCH (08:35)
[2017-03-08] MEDS: APIXABAN 5 MG TAB (ELIQUIS) PO SCH (08:35)
[2017-03-08] MEDS: ISOSORBIDE MON. (IMDUR) 30 MG XR TAB PO SCH (08:35)
[2017-03-08] MEDS ORDERED: MAXZIDE 75/50 TABLET PO SCH (09:00)
--- NOTE | 2017-03-08 09:12 | ECGEPIP ---
Stationary ECG Study [facility] - ED Test Date: 2017-03-07 Pat Name: IRLANDA AZEVEDO Department: Room: - Gender: M Title Clerk Automobile: arleen : 1940 Requested By: Danny Potter Order Number: [id number] Reading MD: Danny Ricketts Measurements Intervals [place] Rate: 48 P: -15 SD: 216 QRS: -1 QRSD: 106 T: 119 QT: 527 QTc: 474 Interpretive Statements SINUS BRADYCARDIA WITH FIRST DEGREE AV BLOCK LEFT VENTRICULAR HYPERTROPHY AND ST-T CHANGE SIMILAR TO 02/17/17 Electronically Signed On 03-08-2017 9:11:54 EST by Danny Ricketts
[2017-03-08] MEDS ORDERED: GLYB5TA PO (11:55)
[2017-03-08] MEDS ORDERED: LOPR1TAB6 PO (11:55)
[2017-03-08] MEDS ORDERED: TRIA37.5 PO (11:55)
[2017-03-08] MEDS ORDERED: SERT50TA PO (11:55)
[2017-03-08] MEDS ORDERED: TIZA4CAP3 PO (11:57)
[2017-03-08] MEDS: ADVAIR HFA 115/21MCG INHALER INH SCH ×2 (13:25→21:07)
--- NOTE | 2017-03-08 16:58 | IPNPDOC ---
Text Note Date of Service The patient was seen on 03/08/17. NOTE Subjective: Patient is a 76 year old male with a PMHx of HTN, CAD s/p multiple stent placements, A. fib (on Eliquis), DLP, NIDDM2, ?CVA, ?Asbestos exposure, who presetned to the ER after he had a syncoapl episode at home. Was found to be bradycardic in the ER at 30-40s. Patient was seen and examined at the bedside. Currently denies any symptoms. Denies any shortness of breath, palpitations or chest pain. Has not had any episodes of passing out while he's been hospitalized. We'll continue with telemetry monitoring Objective: Vitals (See below) General: Lying in bed, no acute distress, comfortable, AAOx3 HEENT: NC, AT CVS: RRR, +S1S2 Lungs: Fair air entry b/l, -w/r/r Abdomen: Soft, ND, NT Extremities: - Edema, - Calf tenderness Assessment and plan: Syncope - likely 2/2 symptomatic bradycardia - Presented to the ER with a heart rate of 30s to 40s - Physical currently reveals no pertinent findings - Has been on telemetry and has improvement in his heart rate after beta ridge has been held - Troponin trend has been negative - CT head / MRI head / MRA head 03/07: No acute findings - We will continue to hold beta ridge - Dr. Chapa (Cardiology) has been consulted; appreciate their input - Planned for pacemaker placement on Wednesday afternoon; in anticipation will hold anticoagulation with Elquis Atrial fibrillation - Beta ridge has been held, given bradycardia - Eliquis will be held tonight and again tomorrow for anticipated pacemaker placement on Wednesday HTN - BP remains moderately controlled - Continue current BP regimen; Imdur, lisinopril, - Beta blockers and triamterene/hydrochlorothiazide held DLP - c/w . Simvastatin CAD - EKG without any ischemic changes - c/w Aspirin, Simvastatin NIDDM - c/w ISS Hx of Asbestosis exposure - Outpatient follow-up SARA on CPAP - Requires another sleep study to be completed as an outpatient - Continue with SARA protocol ?CVA - No evidence of MRI / CT BPH - c/w Tamsulosin DVT - on full anticoagulation with Eliquis VS,Fishbone, I+O VS, Fishbone, I+O Laboratory Tests 03/08/17 07:27 Red Blood Count 4.55, Mean Corpuscular Volume 88.8, Mean Corpuscular Hemoglobin 31.6, Mean Corpuscular Hemoglobin Concent 35.6, Red Cell Distribution Width 13.2 , Calcium Level 9.2 Vital Signs Date Time Temp Pulse Resp B/P (MAP) Pulse Ox O2 Delivery O2 Flow Rate FiO2 03/08/17 15:00 Room Air 03/08/17 14:46 75 144/65 (91) 76 137/87 (104) 82 130/61 (84) 03/08/17 14:46 98.0 19 94 I&O- Last 24 Hours up to 6 AM 03/09/17 06:00 Intake Total 480 ml Output Total 900 ml Balance -420 ml ABIDA DASILVA MD Mar 08, 2017 16:58
--- NOTE | 2017-03-08 17:53 | CR ---
DATE OF CONSULTATION: 03/08/2017 CARDIOLOGY CONSULTATION REPORT REFERRING PHYSICIAN: Dr. Monika Cottrell REASON FOR CONSULTATION: Symptomatic severe sinus bradycardia, tachycardia-bradycardia syndrome. HISTORY OF PRESENT ILLNESS: Mr. Sherif Wolf is a 76-year-old man with systemic hypertension, coronary artery disease, status post percutaneous coronary intervention, ischemic cardiomyopathy, chronic systolic and diastolic heart failure, paroxysmal atrial fibrillation for which he is on metoprolol tartrate and Eliquis, hypercholesterolemia, and nonrheumatic aortic valve disease with moderate aortic valve regurgitation. He was admitted to the hospital 03/07/2017 after having two episodes of syncope and was noted to have symptomatic bradycardia with lightheadedness with heart rates in the low 40s. At the time of presentation, he was on metoprolol tartrate 50 mg once daily. Atenolol has been placed on hold. I shall summarize various aspects of the patient's cardiac history: Exercise SPECT cardiac nuclear stress test 06/21/2015 at the office of Dr. Maximo Tavares showed a large sized myocardial perfusion defect involving the basal inferolateral, basal inferior, basal inferoseptal and mid inferolateral, mid inferior and apical inferior regions, which was of severe intensity and showed partial resolution on the rest images. Gated stress SPECT analysis showed moderate global LV hypokinesis with akinesis of the basal inferolateral, basal inferior, basal inferoseptal regions with gated LVEF of 33%. Subsequent cardiac catheterization 07/04/[address] Parth Gonzalez at [facility] in [place] showed LVEF 40%, chronic occlusion of the right coronary artery with collateral flow to the regions beyond the occlusion, successful placement of a bare metal stent to the left anterior descending coronary artery, presence of moderate aortic valve regurgitation. Left ventricle end-diastolic pressure of 17 mmHg. The patient has also had previous percutaneous coronary intervention in [place], [place] (cardiac catheterization report not available for my review). The patient had a cardiac catheterization in 2014 at the [facility] in [place], which, according to a followup office note from Dr. Maximo Tavares, apparently showed chronic total occlusion of the right coronary artery with grade III left to right collaterals. Otherwise nonobstructive coronary artery disease. Moderate aortic regurgitation. Normal right-sided heart pressures and cardiac index. Holter monitor 06/14/2015 showed heart rate 39-108 beats per minute with an average of 76 beats per minute. Frequent premature atrial contractions (PACs) and premature ventricular contractions (PVCs). Nonsustained supraventricular tachycardia (SVT) up to four beats. No ventricular tachycardia. No atrial fibrillation observed. CARDIAC SYMPTOM STATUS: Patient reports two episodes of syncope yesterday when he was at a restaurant. He reports no warning. He had rapid return of sensorium. Following these episodes of syncope, he was having lightheadedness and was noted upon presentation to have severe sinus bradycardia in the low 40s, associated with decreased blood pressure. He was on metoprolol tartrate at that time. He reports nonexertional bilateral shoulder pains. He reports infrequent nonexertional retrosternal chest discomfort. He was quite vague in describing his chest discomfort. He reports exertional dyspnea when he attempts above ordinary physical activity. No orthopnea or paroxysmal nocturnal dyspnea (PND). No leg or ankle swelling. No palpitations. No embolic events. No known adverse drug reactions. MEDICATIONS PRIOR TO ADMISSION: - albuterol two puffs four times a day as needed - Eliquis 5 mg by mouth twice a day - aspirin 81 mg daily - glyburide 5 mg every second day - hydrochlorothiazide/triamterene 25 mg/37.5 mg one every second day - lisinopril 10 mg daily - metformin 1000 mg twice a day with meals - metoprolol tartrate 50 mg daily - nitroglycerine 0.4 mg sublingual as needed - Advair Diskus one inhalation twice a day - sertraline 50 mg daily - simvastatin 80 mg daily - Januvia 100 mg daily - tizanidine 4 mg three times a day as needed for back pain MEDICATIONS IN THE HOSPITAL: Current medications in the hospital are as follows: - acetaminophen 650 mg every 4 hours as needed - albuterol inhaler two puffs every 4 hours as needed - Eliquis 5 mg twice a day - aspirin 81 mg daily - bupropion 150 mg twice a day - NovoLog insulin subcutaneously four times a day per sliding scale - isosorbide mononitrate 30 mg daily - lisinopril 10 mg daily - Remeron 15 mg nightly - Zofran 4 mg IV every 6 hours as needed for nausea or vomiting - Advair one puff twice a day - Senokot S one tablet twice a day - simvastatin 80 mg nightly - tamsulosin 0.4 mg daily OTHER PAST MEDICAL AND SURGICAL HISTORY: Coronary artery disease. Multiple percutaneous coronary interventions as described above. Paroxysmal atrial fibrillation, systemic hypertension, type 2 diabetes, hypercholesterolemia, asbestosis, questionable mesothelioma, chronic obstructive pulmonary disease (COPD). Ascending aortic aneurysm, degenerative aortic valve disease with moderate aortic regurgitation. FAMILY HISTORY: Mother of cancer. Father at age 70 and had emphysema. Three brothers, one of which has non-Hodgkin's lymphoma. One sister alive and well. Two children alive and well. SOCIAL HISTORY: . Lives alone. Previous pipe smoker. REVIEW OF SYSTEMS: Bilateral shoulder pain at rest. Cardiac symptoms and dyspnea as described above. No edema. All other 10-point review of systems negative. No anxiety, panic attacks or depression. PHYSICAL EXAMINATION: Pleasant overweight man who appears his chronologic age, who is not in any respiratory or psychologic distress. Height 70.5 inches, weight 91.3 kg, body mass index (BMI) 28.5. Temperature 98.0, pulse 63, respiratory rate 18, blood pressure 120/63, oxygen saturation 95% on room air. No conjunctival pallor, scleral icterus or xanthomas. Upper denture is present. Multiple missing lower teeth and lower teeth were in relatively poor condition. Oral mucosa was moist and without pallor or cyanosis. Jugular venous pulsations were at 3cm. Trachea midline. No palpable thyroid. No clubbing, nailbed cyanosis or splinter hemorrhages. No skin lesions, skin pallor or icterus. Oriented to person, place and time. Mood and affect normal. Curvature of the spine normal. Gait normal. Gross motor strength and tone normal. No abnormal muscle atrophy, fasciculations, or tremors. Respiratory expansion effort was fair. No crackles or wheezes. Breath sound intensity mildly reduced. No wheezes. No dullness to percussion. No palpable apex beat. No parasternal lifts, heaves, thrills, or palpable heart sounds. First and second heart sounds normal. No S3 or S4. Grade 1 blowing decrescendo diastolic murmur. No systolic murmur is appreciated. No pericardial friction rubs. Carotids were normal in upstroke and volume. No carotid bruits. No palpable abdominal aorta. No abdominal bruits. Femoral pulses normal. Pedal pulses normal. No lower extremity edema. No varicose veins. Abdomen was obese, soft, nontender with normal bowel sounds. No hepatosplenomegaly or other organomegaly. Liver span difficult to assess due to abdominal obesity. Stool for occult blood not presently indicated. Electrocardiogram 03/07/2017 at 1355 hours shows marked sinus bradycardia, 48 beats per minute, first-degree AV block (AK interval 216 milliseconds), left ventricle hypertrophy with LVH repolarization abnormalities. I have independently visualized the patient's portable semi-upright AP chest x-ray obtained 03/07/2017 at 2:17 p.m. Appearance of mild cardiomegaly despite the AP portable technique. Tortuous thoracic aorta. No pulmonary vascular redistribution. No pleural effusions. No interstitial or alveolar edema. Laboratory work 03/07/2017 at 1414 hours shows WBC 8.0, hemoglobin 13.2, hematocrit 37.0, platelets 210, PT/INR of 1.25. Sodium 138, potassium 4.1 and chloride 104, CO2 25, BUN 14, creatinine 1.19, estimated GFR greater than 60, glucose 228, calcium 8.5, CPK 249, CPK-MB 4.8, troponin I 0.05, total protein 6.6, albumin 3.4, TSH 1.360. ASSESSMENT AND PLAN: 1. Recurrent syncope secondary to sinus node dysfunction (sick sinus syndrome). Presence of metoprolol 50 mg daily contributes to this patient's sinus node dysfunction. However, he is maintained on metoprolol both for control of rapid ventricular response during episodes of paroxysmal atrial fibrillation as well as for ischemic cardiomyopathy with chronic systolic heart failure. Because this is medically necessary and advisable for the patient to be on beta ridge [facility], he will necessitate having placement of a permanent pacemaker to make use of beta ridge safe. Implantation of permanent dual-chamber pacemaker was discussed with the patient, including risks, but not all inclusive: Bleeding, infection (1%), pneumothorax (1%), adverse drug reaction, cardiac perforation with cardiac tamponade (06/999). The patient was agreeable and signed the consent form. The alternative of no pacemaker was also explained to the patient (need to withdraw beta ridge and, therefore, suboptimal management with regards to paroxysmal atrial fibrillation with rapid ventricular response and suboptimal management with regards to chronic systolic heart failure without the presence of beta ridge). The plan is to proceed with permanent pacemaker on Wednesday of this week, which will give time for Eliquis to be mostly worn off to help reduce risk of bleeding during the operation. 2. Sick sinus syndrome/tachycardiac-bradycardia syndrome. As explained in syncope category above. 3. Systemic hypertension. Blood pressure mostly controlled. Will follow blood pressure trends while in the hospital and adjust medications accordingly. Agree with holding the patient's beta ridge for now until he has a pacemaker placed. Continue lisinopril and isosorbide mononitrate at the current dosages. Triamterene/hydrochlorothiazide has been discontinued and I concur. 4. Coronary artery disease ([place] vessel) with angina. The patient has chronic stable angina symptoms for which he was quite vague at reporting details. Continue medical therapy. He is status post multiple percutaneous coronary interventions. Continue on aspirin 81 mg daily, lisinopril, isosorbide mononitrate, high dose simvastatin. 5. Status post multiple percutaneous coronary stents. As per problem #4. 6. Ischemic cardiomyopathy. Last assessment of left ventricular ejection fraction (LVEF) was about 40% by cardiac catheterization. Therefore, he does not yet qualify for implantation of an implantable cardioverter defibrillator (ICD). [place] [employer] (NYHA) functional class III. He appears compensated on examination. Beta ridge on hold for now until such time that he gets a permanent pacemaker. Beta ridge can be restarted once he has a pacemaker implanted. Continue isosorbide mononitrate and lisinopril. I see that triamterene/hydrochlorothiazide has been placed on hold. Will continue to observe for volume status. 7. Chronic systolic and diastolic heart failure. As per ischemic cardiomyopathy category above. 8. Mild first-degree AV block. Secondary to beta ridge. Beta ridge is temporarily on hold until such time that he gets a permanent pacemaker after which beta ridge can be restarted. 9. Abnormal ECG. Electrocardiogram as described above. 10. Paroxysmal atrial fibrillation. Patient remains in sinus rhythm and sinus bradycardia. Beta ridge on hold until he gets a permanent pacemaker. Eliquis on hold until he has a permanent pacemaker placed. 11. Hypercholesterolemia. Continue high dose simvastatin. Recommend a low fat, low cholesterol diet. 12. Non-rheumatic aortic valve disease with moderate aortic valve regurgitation. Stable. 13. History of premature atrial contractions (PACs). Stable. 14. History of premature ventricular contractions (PVCs). Stable. No palpitations. Observe on telemetry. Copy To: Dr. Monika Pham
[2017-03-08] MEDS: MIRTAZAPINE 15 MG TAB PO SCH (21:57)
[2017-03-09] VITALS (23 sets, daily range): BP systolic 107–176; BP diastolic 60–95; O2SAT 88–96
[2017-03-09 05:41] LABS: MEAN CORPUSCULAR HGB CONC 35.6 g/dl (32.0-36.5); MEAN CORPUSCULAR VOLUME 89.8 fl (80.0-96.0); PLATELET COUNT, AUTOMATED 199 10^3/uL (150-450); RED CELL DISTRIBUTION WIDTH 13.1 % (11.5-14.5); WHITE BLOOD COUNT 8.6 10^3/uL (4.0-10.0)
[2017-03-09 05:51] LABS: INR 1.09
[2017-03-09 06:01] LABS: ANION GAP 9 MEQ/L (8-16); BLOOD UREA NITROGEN 14 MG/DL (7-18); CARBON DIOXIDE LEVEL 25 MEQ/L (21-32); CHLORIDE LEVEL 107 MEQ/L (98-107); CREATININE FOR GFR 0.93 MG/DL (0.70-1.30); GLOMERULAR FILTRATION RATE > 60.0 (>42); GLUCOSE, FASTING 158 MG/DL (83-110); POTASSIUM SERUM 3.6 MEQ/L (3.5-5.1); SODIUM LEVEL 141 MEQ/L (136-145)
[2017-03-09] MEDS: ADVAIR HFA 115/21MCG INHALER INH SCH ×2 (08:16→21:07)
[2017-03-09] MEDS: ASPIRIN 81 MG ENTERIC TAB PO SCH (08:19)
[2017-03-09] MEDS: HumaLOG INSULIN (NovoLOG) PER UNIT SC SCH ×4 (08:19→21:14)
[2017-03-09] MEDS: TAMSULOSIN 0.4 MG CAP PO SCH (08:19)
[2017-03-09] MEDS: buPROPion **SR TABLET** (ZYBAN) 150MG PO SCH ×2 (08:19→21:14)
[2017-03-09] MEDS: SENOKOT S TAB PO SCH ×2 (08:20→21:14)
[2017-03-09] MEDS: ISOSORBIDE MON. (IMDUR) 30 MG XR TAB PO SCH (08:20)
[2017-03-09] MEDS: SIMVASTATIN 40 MG TAB PO SCH (08:21)
[2017-03-09] MEDS: LISINOPRIL 10 MG TAB PO SCH (08:21)
--- NOTE | 2017-03-09 15:27 | IPN ---
DATE: 03/09/2017 SUBJECTIVE: The patient tells me he is feeling quite well today. He denies any specific complaints, lightheadedness, dizziness, palpitations, chest pain, fevers or shortness of breath. OBJECTIVE: VITAL SIGNS: Temperature 98.6, pulse 80, respiratory rate 15, blood pressure 140/83, oxygen saturation 93% on room air. GENERAL: He is a pleasant elderly man lying in bed at a 30 degree angle. He does not appear to be in any acute distress. HEENT: He has moist mucous membranes. No elevation of CVP. CARDIOVASCULAR: S1, S2, regularly irregular. He is not tachycardic at the time of my examination. RESPIRATORY: Exam is actually quite clear. ABDOMEN: Obese. EXTREMITIES: No clubbing, cyanosis or edema. LABORATORY STUDIES: WBC 8.6, hemoglobin 12.9, hematocrit 36.2, platelet count 199. Chemistry panel: Sodium 141, potassium 3.6, chloride 107, bicarbonate 25, BUN 14, creatinine 0.9. He has a TSH within normal limits. INR 1.0. IMAGING: He had a CT scan of his head which revealed age-related atrophy and microvascular ischemic change and no acute intracranial hemorrhage, infarction or mass effect. He did have a chest x-ray at the time of admission that revealed chronic stable changes. No acute cardiopulmonary process. He also has an MRA of the brain that revealed [place] of [place] within normal limits. He also had an MRI of the brain which revealed no evidence of acute infarct or hemorrhage. ASSESSMENT/PLAN: This is a 76-year-old man with recurrent syncope secondary to sick sinus syndrome. PROBLEMS: 1. Sick sinus syndrome: Dr. Chapa's help is greatly appreciated. At the present time, the patient's beta ridge is currently on hold. The plan is for a permanent pacemaker placement tomorrow after an Eliquis washout. Consent has been obtained. He is nothing by mouth after midnight. Please note that the patient is normally on Eliquis. This is currently on hold. 2. Hypertension: Controlled at this time. Continue with isosorbide and lisinopril. The patient is discontinued from triamterine and hydrochlorothiazide. 3. Coronary artery disease with chronic angina. He is status post multiple PCI. He is continued on aspirin, statin. He is on lisinopril and nitrates. Beta ridge is currently on hold as has been outlined above. 4. Ischemic cardiomyopathy with congestive heart failure with ejection fraction at 40%. He is compensated at this time. Following pacemaker placement he could likely resume his beta ridge. 5. Dyslipidemia: The patient is on simvastatin. 6. Diabetes: Continue with insulin sliding scale. 7. Asbestos exposure: Continue outpatient followup. Continue with Advair. 8. Obstructive sleep apnea: Continue with CPAP. He is compliant with CPAP at home. He requires a repeat obstructive sleep apnea testing in the outpatient setting. 9. Benign prostatic hypertrophy (BPH): He is on tamsulosin. 10. Deep venous thrombosis prophylaxis: The patient is normally on antiplatelet therapy coagulation with Eliquis. Will continue with sequentials and thromboembolic deterrent stockings (TEDS). 11. Psychiatric illness: Continue with Remeron, bupropion. DISPOSITION: Pending pacemaker placement.
--- NOTE | 2017-03-09 17:05 | IPN ---
DATE: 03/09/2017 Time: 4:39 p.m. SUBJECTIVE: Patient feels well today with no voiced complaints. Specifically, he is not bothered by any lightheadedness/dizziness, presyncope or syncope, chest pain or chest discomfort, exertional dyspnea, leg or ankle swelling thus far today. PHYSICAL EXAMINATION: Pleasant, man who appears his chronological age. Overweight. Weight 93.5 kg, temperature 97.9, pulse 101, respiratory rate 20, blood pressure 107/67, oxygen saturation 88% on room air. Jugular venous pulsations were at 3 cm. Respiratory expansion and effort was fair. No crackles or wheezes. First and second heart sounds normal. No S3 or S3 or murmurs appreciated. No pericardial friction rub. Abdomen was soft, nontender with normal bowel sounds. No lower extremity edema. Mood and affect was normal. Speech was normal. Laboratory work 03/09/2017, shows sodium 141, potassium 3.6, chloride 107, CO2 25, BUN 14, creatinine 0.93, estimated GFR greater than 60, glucose 158, magnesium 2.0. ASSESSMENT AND PLAN: 1. Recurrent syncope secondary to sick sinus syndrome. Plan will be to place a permanent dual chamber pacemaker tomorrow. 2. Sick sinus syndrome/tachycardia-bradycardia syndrome. Plan will be to place a permanent dual chamber pacemaker tomorrow and following that he may be placed back on beta ridge for management of atrial fibrillation with rapid ventricular response as well as management of ischemic cardiomyopathy. 3. Systemic hypertension. Blood pressure controlled. Continue isosorbide mononitrate and lisinopril at the current dosages. 4. Coronary artery disease (CAD) ([place]ahu[place] vessel). The patient is status post coronary stenting. No anginal symptoms today. Continue aspirin, isosorbide mononitrate, lisinopril, simvastatin 80 mg/d. 5. Status post coronary stenting. As per coronary artery disease (CAD) category above. 6. Ischemic cardiomyopathy. The patient has chronic systolic and diastolic heart failure. He appears to be compensated. NYHA functional class II. Continue isosorbide mononitrate and lisinopril at the current dosages. Once the patient has a permanent pacemaker, he can safely be placed back on beta ridge. 7. First degree atrioventricular (AV) block. Stable. 8. Abnormal ECG. Stable. 9. Paroxysmal atrial fibrillation. The patient can go back on Eliquis once he has a permanent pacemaker placed. Is presently on hold while he awaits pacemaker placement. Will be able to restart beta ridge once he has a permanent pacemaker. He remains in sinus rhythm on telemetry. 10. Hypercholesterolemia. Continue DASH diet and high dose simvastatin. 11. Nonrheumatic aortic valve disease with moderate aortic regurgitation. Stable.
[2017-03-09] MEDS: MIRTAZAPINE 15 MG TAB PO SCH (21:14)
[2017-03-09] MEDS ORDERED: SLF 3 ML SYR IV PRN (23:30)
[2017-03-10] VITALS (26 sets, daily range): BP systolic 127–205; BP diastolic 78–110; O2SAT 92–96
[2017-03-10] MEDS: SLF 3 ML SYR IV SCH ×3 (05:19→21:29)
[2017-03-10 05:39] LABS: MEAN CORPUSCULAR HEMOGLOBIN 31.7 pg (27.0-33.0); MEAN CORPUSCULAR HGB CONC 35.2 g/dl (32.0-36.5); MEAN CORPUSCULAR VOLUME 90.1 fl (80.0-96.0); PLATELET COUNT, AUTOMATED 195 10^3/uL (150-450); RED CELL DISTRIBUTION WIDTH 13.2 % (11.5-14.5)
[2017-03-10 05:53] LABS: INR 1.18
[2017-03-10 05:57] LABS: ANION GAP 9 MEQ/L (8-16); BLOOD UREA NITROGEN 10 MG/DL (7-18); CALCIUM LEVEL 8.8 MG/DL (8.8-10.2); CARBON DIOXIDE LEVEL 24 MEQ/L (21-32); CHLORIDE LEVEL 109 MEQ/L (98-107); CREATININE FOR GFR 0.92 MG/DL (0.70-1.30); GLOMERULAR FILTRATION RATE > 60.0 (>42); GLUCOSE, FASTING 173 MG/DL (83-110); MAGNESIUM LEVEL 1.7 MG/DL (1.8-2.4); POTASSIUM SERUM 3.4 MEQ/L (3.5-5.1); SODIUM LEVEL 142 MEQ/L (136-145)
[2017-03-10] MEDS ORDERED: POTASSIUM CHLORIDE 10 MEQ SR TABLET PO ONE (06:00)
[2017-03-10] MEDS ORDERED: MAG SULF 1GM/100ML (MAG RUN) 1 GM in APPROPRIATE DILUENT 1 EA IV ONE (06:00)
[2017-03-10] MEDS: LISINOPRIL 10 MG TAB PO SCH (06:46)
[2017-03-10] MEDS: HumaLOG INSULIN (NovoLOG) PER UNIT SC SCH ×4 (07:30→21:29)
[2017-03-10] MEDS: ADVAIR HFA 115/21MCG INHALER INH SCH ×2 (07:50→20:18)
[2017-03-10] MEDS: SENOKOT S TAB PO SCH ×2 (09:00→21:28)
[2017-03-10] MEDS: buPROPion **SR TABLET** (ZYBAN) 150MG PO SCH ×2 (09:00→21:28)
[2017-03-10] MEDS ORDERED: PREVNAR 13 VACCINE SYRINGE (CPT CODE:90670) IM ONE (09:00)
[2017-03-10] MEDS: ASPIRIN 81 MG ENTERIC TAB PO SCH (09:00)
[2017-03-10] MEDS: SIMVASTATIN 40 MG TAB PO SCH (09:01)
[2017-03-10] MEDS: ISOSORBIDE MON. (IMDUR) 30 MG XR TAB PO SCH (09:01)
[2017-03-10] MEDS: TAMSULOSIN 0.4 MG CAP PO SCH (09:01)
[2017-03-10] MEDS ORDERED: LR 400 ML IV ONE (13:30)
--- NOTE | 2017-03-10 14:16 | ECHO ---
DATE OF STUDY: 03/07/2017 REFERRING PHYSICIAN: Monika Cottrell MD INDICATION: Abnormal ECG. HEIGHT: 179 cm. WEIGHT: 91.2 kg. 2D MEASUREMENTS: Left atrium 3.7 cm. Ventricular septum 1.56 cm. Posterior wall 1.56 cm. Left ventricle diastole 4.5 cm. Aortic regurgitation 4.1 cm. LVOT 2.1 cm. Inferior vena cava 2.4 cm (more than 50% respiratory variation). Central venous pressure estimated to be 5-10 mmHg. DOPPLER MEASUREMENTS: Mild aortic regurgitation. Aortic valve velocity 225 cm/s. LVOT velocity 85.0 cm/s. LVOT VTI 15.8 cm. Mitral E velocity 118 cm/s. Mitral pressure halftime (pulse wave) 162 ms. MITRAL ANNULAR TISSUE DOPPLER: E prime septal 8.8 cm/s. E prime lateral 9.9 cm/s. DESCRIPTION: Rhythm was sinus tachycardia mostly in the low 100s. This was a moderately technically difficult echocardiogram. No pericardial effusion. This was 2D, M mode, color flow Doppler and pulse wave Doppler examination and included mitral annular tissue Doppler. CONCLUSIONS: 1. Moderate reduction overall of LV systolic function. LVEF 40% by visual estimate. Moderate concentric left ventricle hypertrophy. Essentially akinesis of the basal anteroseptal segment and severe hypokinesis of the mid anteroseptal segment. Akinesis of the basal inferior segment, severe hypokinesis of the mid inferior segment and moderate hypokinesis of the apical-inferior segment. Normal regional wall motion and wall thickening elsewhere. 2. Normal right ventricle size and systolic function. 3. Mild aortic valve sclerosis. Mild aortic regurgitation. No aortic stenosis. 4. Mild dilatation of the aortic root at the level of the sinuses of Valsalva.
--- NOTE | 2017-03-10 14:30 | IPN ---
DATE: 03/10/2017 SUBJECTIVE: The patient tells me that he is feeling well. He had an episode this morning where his heart rate was fast and his blood pressure was high. But other than that he tells me that he is now feeling back to normal. OBJECTIVE: VITAL SIGNS: Temperature 97.2, pulse 86, respiratory rate 18, blood pressure 172/95, Oxygen saturation 95% in room air. GENERAL: He is a very pleasant elderly male lying in bed on his right side. He is in no distress. HEENT: Cranial nerves II through XII are grossly intact. He has moist mucous membranes. No elevation of his jugular venous pulse. CARDIOVASCULAR: S1, S2, irregularly irregular. He is not tachycardic. RESPIRATORY EXAM: Clear. ABDOMEN: Obese. EXTREMITIES: No clubbing, cyanosis or edema. LABORATORY STUDIES: WBC 9.0, hemoglobin 12.5, platelet count 195. Chemistry panel: Sodium 142, potassium 3.4 repleted, chloride 109, bicarbonate 24, BUN 10, creatinine 0.9, magnesium 1.7 repleted. No new imaging. ASSESSMENT/PLAN: This is a 76-year-old man with recurrent syncope said to be related to his sick sinus syndrome. PROBLEMS: 1. Recurrent syncope related to sick sinus syndrome: Plans for a permanent pacemaker today by Dr. Chapa. His help is greatly appreciated. Following this, he will be resumed on beta ridge which will hopefully help control his rapid ventricular response and hypertension. 2. Systemic hypertension: He is on isosorbide mononitrate, lisinopril. We will be able to restart his metoprolol upon permanent pacemaker placement. 3. Coronary artery disease: Beta ridge is on hold as above. He is to continue on aspirin and statin. 4. Ischemic cardiomyopathy: He is on an TALHA inhibitor. We will restart his beta ridge. He is on nitrates. Ejection fraction is 40%. 5. Dyslipidemia: He is on simvastatin. 6. Diabetes: Insulin sliding scale. 7. Asbestos exposure: Continue outpatient followup. 8. Obstructive sleep apnea: He is on CPAP . 9. Benign prostatic hypertrophy, (BPH): He is on tamsulosin. 10. Deep venous thrombosis prophylaxis: He is normally on antiplatelet and anticoagulation. His Eliquis is currently on hold. We are providing him with sequentials and thromboembolic deterrent stockings (TEDS). Resume Eliquis following pacemaker placement. 11. Psychiatric illness: Continue with his Remeron, bupropion. DISPOSITION: Pending pacemaker placement today.
[2017-03-10] MEDS ORDERED: MUPIROCIN 2% OINT 22 GM TUBE As Ordered ONE (15:50)
[2017-03-10] MEDS ORDERED: LIDOCAINE 1% SDV INJ 30 ML VIAL As Ordered ONE (15:50)
[2017-03-10] MEDS ORDERED: ISOVUE-300 61% 50ML VIAL (Q9967) As Ordered ONE ×2 (15:50→16:21)
[2017-03-10] MEDS ORDERED: VANCOMYCIN 1000 MG/20 ML VIAL (J3370) As Ordered ONE (15:51)
[2017-03-10] MEDS ORDERED: ceFAZolin 2 GM/D5W 50 ML IV BAG (J0690) As Ordered ONE (16:21)
[2017-03-10] MEDS ORDERED: fentaNYL 100 MCG/2 ML INJECTION (J3010) As Ordered ONE ×2 (16:41→17:41)
[2017-03-10] MEDS ORDERED: LIDOCAINE 2% INJ 100 MG/5 ML SDV (FOR ANES.) As Ordered ONE (16:41)
[2017-03-10] MEDS ORDERED: MIDAZOLAM INJ 2 MG/2 ML VIAL (J2250) As Ordered ONE (16:41)
[2017-03-10] MEDS ORDERED: PROPOFOL 500 MG/50 ML VIAL As Ordered ONE (16:41)
--- NOTE | 2017-03-10 18:32 | REP ---
Clinical: Pacemaker placement. Technique: Intraoperative fluoroscopic imaging. Findings: 10 intraoperative fluoroscopic images demonstrate dual lead pacemaker with tips in the right atrium and right ventricle. Total fluoroscopic time 6 minutes 55 seconds. Impression: Status post pacemaker with leads in the right atrium and right ventricle. Signed by Long Vegas MD 03/10/2017 06:25 P
[2017-03-10] MEDS ORDERED: ONDANSETRON 4MG/2ML VIAL (J2405) IV PRN (18:45)
[2017-03-10] MEDS ORDERED: fentaNYL 100 MCG/2 ML INJECTION (J3010) IV PRN (18:45)
[2017-03-10] MEDS ORDERED: LR 1,000 ML IV SCH (18:45)
--- NOTE | 2017-03-10 19:20 | REP ---
Clinical: Postoperative for pacemaker placement. Comparison: 03/07/2017. Findings: Stable cardiomegaly and tortuous thoracic aorta again noted. The lung hernandez demonstrate chronic interstitial changes and scattered calcifications. Superimposed pulmonary vascular congestion as well as left sided acute opacities cannot be excluded. Impression: Mild pulmonary vascular congestion as well as acute multifocal left sided opacities cannot be excluded. Signed by Long Vegas MD 03/10/2017 07:12 P
[2017-03-10] MEDS: ACETAMINOPHEN TAB 650MG DOSE (2X325MG) PO PRN (19:38)
--- NOTE | 2017-03-10 19:41 | RO ---
DATE OF PROCEDURE: 03/10/2017 PREOPERATIVE DIAGNOSIS: Sick sinus syndrome, tachycardia/bradycardia syndrome. POSTOPERATIVE DIAGNOSIS: Sick sinus syndrome, tachycardia/bradycardia syndrome. FINDINGS: Sick sinus syndrome, tachycardia/bradycardia syndrome. OPERATIVE PROCEDURE: Implantation of a [employer] dual chamber pacemaker system. SURGEON: Rafael Chapa MD TEST ENGINE MECHANIC: None. ANESTHESIA: Lidocaine 1% local/monitored anesthetic care. SPECIMENS: None. ESTIMATED BLOOD LOSS: Less than 10 mL. BLOOD PRODUCTS REPLACED: None. DRAINS: None. COMPLICATIONS: None. DESCRIPTION OF OPERATION: The patient was prepped and draped over the left pectoral region. 3M Ioban film was applied. Lidocaine 1% was used for local anesthetic. A left subclavian venogram was performed twice; the first time using 20 mL and the second one using 15 mL which contained 3/4 Isovue and 1/4 normal saline solution. This was used in real time under fluoroscopy to obtain percutaneous access with the micropuncture needle into the left subclavian vein. This was then guidewire exchanged for a guidewire that came with one of the #8-Moldovan sheaths. Next, PEAK PlasmaBlade was used to make an incision approximately 2.5 inches in length, 1 cm below the skin the skin at the site of the site of the guidewire. The PEAK PlasmaBlade was used to get through the fatty layer and the fibrous Peter's fascia. Next, the pacemaker pocket was formed using blunt dissection using two fingers to separate the prepectoral fascia from the Peter's fascia. Next, the guidewire was pulled through the skin into the incision site. Next, I used a second micropuncture needle to obtain a separate left subclavian vein access at the level of the pectoral muscle more lateral to the first guidewire and using the first guidewire as a fluoroscopic marker. This was then guidewire exchanged for the guidewire that came with the other #8-Moldovan sheath. Next, #8-Moldovan sheath introducer was placed over the more lateral of the guidewires and was used for vein access for the right ventricle lead. The right ventricle lead was placed into the right ventricle near the apex and secured with a total of ten turns. This position was found to be electrically and anatomically satisfactory and no diaphragm stimulation could be palpated at 10 volts high output pacing with palpation of the diaphragm on both sides. Next, the #8-Moldovan sheath was removed and ventricle lead was secured to the pectoral muscle using the supplied tie-down sleeves, stitching it in with three separate sutures consisting of #0 Ethibond to secure it to the pectoral muscle. Next, the other #8-Moldovan sheath was applied over the more medial of the guidewires and was used vein access for the right atrial lead. The right atrial lead was placed into the right atrial appendage position with the assistance of a preformed J-stylet. It was secured with a total of 10 turns. This position was found to be electrically and anatomically satisfactory. The #8-Moldovan sheath was removed and the J-stylet was removed. The atrial lead was then secured to the pectoral muscle using the supplied tie down sleeve using three separate sutures consisting of #0 Ethibond to secure it to the pectoral muscle. Next, another #0 Ethibond suture was placed in the pectoral muscle to serve as a tie down for the pacemaker pulse generator. Next, the terminal pins of the ventricle and atrial leads were plugged into their respective ports in the header of the pacemaker pulse generator and each one was secured by tightening the set screws with the Hex screwdriver. The excess lead material was then coiled underneath the pacemaker pulse generator and placed along with the pacemaker pulse generator into the pacemaker pocket with the excess lead material below and pacemaker on top. Next the pacemaker pulse generator was secured to the pectoral muscle with the previously placed #0 Ethibond suture. Next, I took a medium sized TYRX antimicrobial envelope and cut it into six pieces, which were placed over the top of the pacemaker pulse generator within the pocket. The deep layer was closed using individual sutures consisting of #2-0 Vicryl. The skin was closed using running suture consisting of #4-0 Biosyn with the first knot buried deep and the last of the suture line brought to the level of the skin on the opposite end and snipped it at the level of the skin. Next, two layers of Dermabond was applied. Following this Mastisol was placed above and below the suture line and then half inch Steri-Strips were applied crosswise perpendicular to the length of the incision. This was followed by a pressure dressing and application of a left arm sling in the operating room. The pacemaker pulse generator implanted was a [employer] MRI with model #CQ7805, with serial #[id number]. The right atrial lead implanted was a [employer] Tendril MRI, model #[id number], 52 cm in length with serial #[id number]. Final testing in the operating room for the right atrial lead with PSA analyzer showed capture threshold of 0.8 volts in 0.4 ms with P wave amplitude of 2.0 mV and lead impedance of 479 ohms. The right ventricle lead implanted was a [employer] Tendril MRI with model #[id number], 52 cm in length with serial #[id number]. Final testing in the operating room with the PSA analyzer for the right ventricle lead showed capture threshold of 0.8 volts in 0.4 ms with R wave amplitude of 32.4 mV and lead impedance of 648 ohms.
[2017-03-10] MEDS ORDERED: CARVedilol 6.25 MG TAB PO ONE (20:00)
[2017-03-10] MEDS: MIRTAZAPINE 15 MG TAB PO SCH (21:28)
[2017-03-10] MEDS: CEPACOL LOZENGE PO PRN (22:43)
[2017-03-11] VITALS (16 sets, daily range): BP systolic 102–168; BP diastolic 51–85; O2SAT 90–95
[2017-03-11] MEDS ORDERED: hydrALAZINE INJ 20 MG/ML VIAL IV ONE (00:15)
[2017-03-11] MEDS ORDERED: RAMELTEON 8 MG TAB (ROZEREM) PO PRN (00:15)
[2017-03-11 05:39] LABS: MEAN CORPUSCULAR HEMOGLOBIN 31.5 pg (27.0-33.0); MEAN CORPUSCULAR VOLUME 90.1 fl (80.0-96.0); PLATELET COUNT, AUTOMATED 206 10^3/uL (150-450); RED CELL DISTRIBUTION WIDTH 13.6 % (11.5-14.5); WHITE BLOOD COUNT 11.8 10^3/uL (4.0-10.0)
[2017-03-11 05:50] LABS: INR 1.12
[2017-03-11] MEDS: SLF 3 ML SYR IV SCH ×3 (06:00→21:20)
[2017-03-11 06:01] LABS: ANION GAP 9 MEQ/L (8-16); BLOOD UREA NITROGEN 10 MG/DL (7-18); CALCIUM LEVEL 8.9 MG/DL (8.8-10.2); CARBON DIOXIDE LEVEL 25 MEQ/L (21-32); CHLORIDE LEVEL 104 MEQ/L (98-107); GLOMERULAR FILTRATION RATE > 60.0 (>42); GLUCOSE, FASTING 238 MG/DL (83-110); MAGNESIUM LEVEL 1.9 MG/DL (1.8-2.4); POTASSIUM SERUM 3.9 MEQ/L (3.5-5.1); SODIUM LEVEL 138 MEQ/L (136-145)
[2017-03-11] MEDS: ADVAIR HFA 115/21MCG INHALER INH SCH ×2 (08:05→20:58)
--- NOTE | 2017-03-11 08:22 | ECGEPIP ---
Stationary ECG Study [facility] Test Date: 2017-03-10 Pat Name: IRLANDA AZEVEDO Department: Room: [place] [address] Gender: M Policy Cancellation Clerk: VAMSHI : [id number] Requested By: Rafael Chapa Order Number: [id number] Reading MD: Yani Flores Measurements Intervals [place] Rate: 94 P: 1 MI: 184 QRS: 15 QRSD: 109 T: 131 QT: 387 QTc: 484 Interpretive Statements SINUS RHYTHM 1ST DEGREE BLOCK LEFT VENTRICULAR HYPERTROPHY AND ST-T CHANGE RELATED TO Left ventricular hypertrophy AND OR ISCHEMIA RATE SLOWER C/W 03/07/17 Electronically Signed On 03-11-2017 8:22:27 EST by Yani Flores
[2017-03-11] MEDS: ASPIRIN 81 MG ENTERIC TAB PO SCH (08:51)
[2017-03-11] MEDS: SIMVASTATIN 40 MG TAB PO SCH (08:52)
[2017-03-11] MEDS: SENOKOT S TAB PO SCH ×2 (08:52→21:19)
[2017-03-11] MEDS: buPROPion **SR TABLET** (ZYBAN) 150MG PO SCH ×2 (08:52→21:19)
[2017-03-11] MEDS: LISINOPRIL 10 MG TAB PO SCH (08:52)
[2017-03-11] MEDS: ACETAMINOPHEN TAB 650MG DOSE (2X325MG) PO PRN (08:53)
[2017-03-11] MEDS: CEPACOL LOZENGE PO PRN ×2 (08:53→17:11)
[2017-03-11] MEDS: HumaLOG INSULIN (NovoLOG) PER UNIT SC SCH ×4 (08:53→21:20)
[2017-03-11] MEDS ORDERED: CARVedilol 6.25 MG TAB PO SCH (09:00)
[2017-03-11] MEDS: TAMSULOSIN 0.4 MG CAP PO SCH (09:01)
[2017-03-11] MEDS ORDERED: CARVedilol 6.25 MG TAB PO ONE (09:15)
--- NOTE | 2017-03-11 09:20 | REP ---
Clinical: Status post pacemaker. Technique PA and lateral. Comparison: 03/10/2017. Findings: Mediastinum and cardiac silhouette are stable. Pacemaker leads in satisfactory position overlying right atrium and right ventricle. Lung hernandez demonstrate diffuse chronic interstitial changes. Superimposed left upper lobe atelectasis/infiltrate and small bibasilar effusions are suspected. Skeletal structures are intact. Impression: Chronic changes with superimposed left upper lobe opacity, bibasilar atelectasis and small pleural effusions. Signed by Long Vegas MD 03/11/2017 08:29 A
[2017-03-11] MEDS: ISOSORBIDE MON. (IMDUR) 30 MG XR TAB PO SCH (09:56)
--- NOTE | 2017-03-11 11:57 | IPN ---
DATE OF SERVICE: 03/11/2017 SUBJECTIVE: The patient tells me that he is feeling well. He has no complaints. He is a little bit frustrated with wearing a sling but otherwise there are no other specific complaints. Denies lightheadedness, dizziness, headache, blurry vision. OBJECTIVE: Vital signs: Temperature 97.3, pulse 98, respiratory rate 20, blood pressure 168/82, oxygen saturation 93% on room air. General: He is a very pleasant elderly male sitting peacefully as I entered the room but he is arousable. HEENT: Cranial II-XII grossly intact. He has moist mucous membranes and elevation of CVP. Cardiovascular: S1, S2, irregularly irregular. He is not tachycardic at the time of my exam. His dressing is clean, dry and intact. Respiratory exam: Clear. Abdominal exam: Obese. Extremities: No clubbing, cyanosis or edema. LABORATORY STUDIES: WBC 11.8, hemoglobin 13.4, platelet count 206. Chemistry panel: Sodium 138, potassium 3.9, chloride 104, bicarbonate 25, BUN 10, creatinine 1.0, magnesium 1.9. INR is 1.1. NEW IMAGING: The patient did have a chest x-ray this morning which revealed chronic changes with superimposed left upper lobe opacity, bibasilar atelectasis and small pleural effusions. ASSESSMENT AND PLAN: This is a 76-year-old man with current syncope secondary to sick sinus syndrome. PROBLEMS: 1. Recurrent syncope secondary to sick sinus syndrome. He is status post permanent pacemaker placement by Dr. Chapa yesterday. His help is greatly appreciated. The patient's rate has been a little bit fast. Dr. Chapa has already titrated up his Coreg. Will defer to Dr. Chapa when he is okay with the patient restarting anticoagulation. He is on aspirin. 2. Systemic hypertension. He is mildly hypertensive. He is on titrated dose of Coreg, Imdur, lisinopril. I suspect with the increase of Coreg, his hypertension will be improved. 3. Coronary artery disease. He has been restarted on beta ridge. He is on an aspirin and statin. He is asymptomatic. 4. Ischemic cardiomyopathy with ejection fraction 40%. He is on cecelia inhibitor, beta ridge, nitrates. At the present time, he does not appear to be requiring any loop diuretic. His volume status is optimized. 5. Dyslipidemia. He is on simvastatin. 6. Diabetes. He is on sliding scale. 7. Asbestosis. Continue outpatient followup. 8. Obstructive sleep apnea. He is on CPAP. 9. Benign prostatic hypertrophy (BPH). He is on tamsulosin. 10. Deep venous thrombosis (DVT) prophylaxis. He is on aspirin, sequentials and thromboembolic deterrent stockings (TEDS). We will restart Eliquis when okay with Dr. Chapa. 11. Psychiatric illness. Continue with Remeron and bupropion. DISPOSITION: Pending Dr. Chapa's evaluation, titration of medications and physical therapy clearance. MTDD
[2017-03-11] MEDS: CARVedilol 12.5 MG TAB PO SCH (21:19)
[2017-03-11] MEDS: MIRTAZAPINE 15 MG TAB PO SCH (21:19)
[2017-03-12] VITALS: BP_SYST 139; BP_SYST 158; BP_SYST 162; BP_DIAS 85; BP_DIAS 87; BP_DIAS 92
[2017-03-12 04:00] VITALS: BP 178/102
[2017-03-12] MEDS: SLF 3 ML SYR IV SCH (05:13)
[2017-03-12 05:49] LABS: MEAN CORPUSCULAR HEMOGLOBIN 31.2 pg (27.0-33.0); MEAN CORPUSCULAR HGB CONC 34.7 g/dl (32.0-36.5); MEAN CORPUSCULAR VOLUME 89.8 fl (80.0-96.0); PLATELET COUNT, AUTOMATED 191 10^3/uL (150-450); RED CELL DISTRIBUTION WIDTH 13.3 % (11.5-14.5); WHITE BLOOD COUNT 10.7 10^3/uL (4.0-10.0)
[2017-03-12 05:56] LABS: INR 1.09
[2017-03-12 06:03] LABS: ANION GAP 8 MEQ/L (8-16); BLOOD UREA NITROGEN 11 MG/DL (7-18); CALCIUM LEVEL 8.6 MG/DL (8.8-10.2); CARBON DIOXIDE LEVEL 27 MEQ/L (21-32); CHLORIDE LEVEL 104 MEQ/L (98-107); CREATININE FOR GFR 0.85 MG/DL (0.70-1.30); GLOMERULAR FILTRATION RATE > 60.0 (>42); GLUCOSE, FASTING 172 MG/DL (83-110); MAGNESIUM LEVEL 1.9 MG/DL (1.8-2.4); POTASSIUM SERUM 3.9 MEQ/L (3.5-5.1); SODIUM LEVEL 139 MEQ/L (136-145)
[2017-03-12 06:30] VITALS: BP 160/90
[2017-03-12] MEDS: HumaLOG INSULIN (NovoLOG) PER UNIT SC SCH (07:35)
[2017-03-12] MEDS: ACETAMINOPHEN TAB 650MG DOSE (2X325MG) PO PRN (07:35)
[2017-03-12 08:00] VITALS: O2SAT 94
[2017-03-12] MEDS ORDERED: ISOS30TA4 PO (08:07)
[2017-03-12] MEDS ORDERED: CARV12.5 PO (08:07)
[2017-03-12] MEDS: ASPIRIN 81 MG ENTERIC TAB PO SCH (08:33)
[2017-03-12] MEDS: buPROPion **SR TABLET** (ZYBAN) 150MG PO SCH (08:33)
[2017-03-12] MEDS: TAMSULOSIN 0.4 MG CAP PO SCH (08:33)
[2017-03-12] MEDS: CEPACOL LOZENGE PO PRN (08:33)
[2017-03-12] MEDS: SENOKOT S TAB PO SCH (08:33)
[2017-03-12] MEDS: LISINOPRIL 10 MG TAB PO SCH (08:33)
[2017-03-12 08:34] VITALS: BP 150/80
[2017-03-12] MEDS: CARVedilol 12.5 MG TAB PO SCH (08:34)
[2017-03-12] MEDS: ISOSORBIDE MON. (IMDUR) 30 MG XR TAB PO SCH (08:34)
[2017-03-12] MEDS: SIMVASTATIN 40 MG TAB PO SCH (08:34)
[2017-03-12] MEDS: ADVAIR HFA 115/21MCG INHALER INH SCH (08:50)
[2017-03-12] MEDS ORDERED: APIXABAN 5 MG TAB (ELIQUIS) PO SCH (09:00)
--- NOTE | 2017-03-15 07:25 | DSES ---
DATE OF ADMISSION: 03/07/2017 DATE OF DISCHARGE: 03/12/2017 DISCHARGE DIAGNOSIS: Recurrent syncope secondary to sick sinus syndrome. SECONDARY DIAGNOSES: Hypertension. Coronary artery disease. Ischemic cardiomyopathy. Dyslipidemia. Diabetes. Asbestosis exposure. Obstructive sleep apnea. BPH. Mental health illness. CONSULTS: Dr. Chapa, cardiology. PROCEDURES: Permanent pacemaker placement 03/10/2017. HOSPITAL COURSE: The patient is a 76-year-old man who presented on 03/07/2017 with recurrent episodes of syncope. He was found to have sick sinus syndrome. Dr. Chapa of cardiology was consulted. The patient did have a permanent pacemaker placed during his stay. He tolerated the procedure well. His antihypertensives and rate controlling agents were titrated while he was hospitalized. SUBJECTIVE: This morning, the patient tells me that he is feeling well. He has no complaints. He denies any chest pressure, palpitations, lightheadedness, dizziness, nausea, vomiting, or diarrhea. OBJECTIVE: VITAL SIGNS: Temperature 98.4, pulse 98.3, respiratory rate 18, blood pressure 150/80, oxygen saturation 95% on room air. GENERAL: He is a very pleasant, elderly, man who sits up to greet me as I enter the room. He does not appear to be in any acute distress. HEENT: Cranial nerves II-XII are grossly intact. He has moist mucous membranes. No elevation of central venous pressure. CARDIOVASCULAR EXAM: S1, S2, irregularly irregular. He is not tachycardiac at the time of my exam. RESPIRATORY EXAM: Is completely clear. ABDOMINAL EXAM: Is grossly obese. EXTREMITIES: No clubbing, cyanosis, or edema. His pacemaker incision site is clean, dry, and intact with Steri-Strips in place. There is no evidence of erythema or tenderness. He is wearing a sling of the left upper extremity. LABORATORY STUDIES: WBC 10.7, hemoglobin 13.2, hematocrit 38, platelet count is 191. Chemistry panel: Sodium 139, potassium 3.9, chloride 104, bicarbonate 27, BUN 11, creatinine 0.8, magnesium 1.9. During his stay, the patient did have an MRI of the brain, which revealed no evidence of acute infarct or hemorrhage. He also did have an MRA of the brain, which revealed normal [place]. ASSESSMENT AND PLAN: This is a 76-year-old man with recurrent syncope secondary to sick sinus syndrome. He is status post permanent pacemaker placement. PROBLEMS: 1. Recurrent syncope related to sick sinus syndrome. Dr. Chapa's input has been greatly appreciated. He is status post permanent pacemaker placement. He is rate controlled with Coreg and switched from his previously dosed metoprolol. He has been restated on his aspirin as well as his Eliquis for anticoagulation. 2. Systemic hypertension, controlled. His medications have been adjusted. At this time, he has remained on lisinopril. He has had Imdur and Coreg added, and metoprolol is discontinued as well as his hydrochlorothiazide/triamterine. His blood pressure is well controlled with these measures. He will continue followup with Dr. Chapa regarding this. 3. Coronary artery disease. He is on aspirin, statin, and a beta-ridge. He is asymptomatic. 4. Ischemic cardiomyopathy with an ejection fraction 40%. He does not qualify for an automatic implantable cardioverter-defibrillator (AICD). He is on a beta-ridge and nitrates. He does not appear to be requiring any loop diuretic. His volume status is optimized. 5. Dyslipidemia. He is on simvastatin. 6. Type 2 diabetes. On sliding scale and will restart his oral agents upon discharge. 7. Asbestosis. Continue outpatient followup. 8. Obstructive sleep apnea. He is compliant with continuous positive airway pressure (CPAP). 9. BPH. He is on tamsulosin. 10. Mental health illness. He has continued on Remeron and bupropion while he has been in the hospital. 11. Deep venous thrombosis (DVT) prophylaxis. He is on Eliquis. DISPOSITION: The patient is being discharged home. He is independent with activities of daily living (ADLs). His clinical syndrome has resolved. He is to followup with Dr. Chapa's office on 03/18/2017 for a pacemaker check and also on 04/09/2017. He is to keep the pacemaker incision dry until 03/17/2017. Dr. Chapa agrees with this. He is asymptomatic and stable for discharge home at this time. He has restarted Eliquis. He is to avoid raising his arm on hist left side beyond 90 for 2 weeks and no driving for [address] Chapa has requested the patient take vitamin C 250 mg twice a day for 30 days. He is to followup with his primary care provider (PCP) in 7 days. Activity and diet are as per Dr. Chapa's instructions. He is to return to the emergency room (ER) if symptoms worsen. MEDICATION AT THE TIME OF DISCHARGE: - carvedilol 12.5 mg twice a day - isosorbide mononitrate extended release 30 mg every morning - ProAir HFA 108 mcg inhale two puffs every 4 hours as needed for shortness of breath - Eliquis 5 mg twice a day - aspirin 81 daily - glyburide 5 mg every 2 days - lisinopril 10 mg daily - metformin 1 gram twice a day with meals - Nitrostat 0.4 mg sublingually every 5 minutes as needed for chest pain times three doses - Advair Diskus 250/50 one puff inhaled twice a day - sertraline 50 mg daily - simvastatin 80 mg daily - Januvia 100 mg daily - tizanidine 4 mg three times a day as needed for back pain Greater than 30 minutes spent organizing disposition, paper scripts provided to the patient as [facility] and pharmacy [place] of [facility] [place]
== END 2017-03-12 11:05 | disposition home or self-care (01) | DRG 243 ==
LOC: M ED 13:46 → EDBD 13:46 → M ED INP 19:33 → M PCU 03-08 14:45
PROVIDERS: ADMIT Hospitalist; ATTEND Internal Medicine
PROC: 02HK3JZ Insertion of Pacemaker Lead into Right Ventricle, Percutaneous Approach (ICD-10-PCS; 2017-03-10)
PROC: 02H63JZ Insertion of Pacemaker Lead into Right Atrium, Percutaneous Approach (ICD-10-PCS; 2017-03-10)
PROC: 0JH606Z Insertion of Pacemaker, Dual Chamber into Chest Subcutaneous Tissue and Fascia, Open Approach (ICD-10-PCS; principal; 2017-03-10 15:00)
DX: I49.5 Sick sinus syndrome (principal); I50.42 Chronic combined systolic (congestive) and diastolic (congestive) heart failure; E78.5 Hyperlipidemia, unspecified; I25.10 Atherosclerotic heart disease of native coronary artery without angina pectoris; I48.0 Paroxysmal atrial fibrillation; G47.33 Obstructive sleep apnea (adult) (pediatric); E11.9 Type 2 diabetes mellitus without complications; I25.5 Ischemic cardiomyopathy; E66.3 Overweight; I35.1 Nonrheumatic aortic (valve) insufficiency; I44.0 Atrioventricular block, first degree; I11.0 Hypertensive heart disease with heart failure; N40.0 Benign prostatic hyperplasia without lower urinary tract symptoms; Z95.5 Presence of coronary angioplasty implant and graft; Z79.01 Long term (current) use of anticoagulants; Z79.82 Long term (current) use of aspirin; Z79.84 Long term (current) use of oral hypoglycemic drugs; Z68.28 Body mass index [BMI] 28.0-28.9, adult; Z79.899 Other long term (current) drug therapy

== ENCOUNTER 2017-03-25 14:15 | Emergency (ER) | payer MEDICARE, OTHER ==
[~2017-03-25] VITALS: Ht 177.8 cm; Wt 91.2 kg
[~2017-03-25 14:15] MED LIST changes: +CARV12.5 PO; +GLYB5TA PO; +ISOS30TA4 PO; +LOPR1TAB6 PO; +MIRT15TA3 PO; +PATIENT COMMENT; +SERT50TA PO; +TIZA4CAP3 PO; +TRIA37.5 PO
[2017-03-25] MEDS ORDERED: NS 1,000 ML IV ONE (14:30)
[2017-03-25 14:42] LABS: BASO # 0.1 10^3/uL (0.0-0.2); BASO % 0.7 % (0.0-1.0); EOS # 0.3 10^3/uL (0.0-0.50); EOS % 3.2 % (0.0-3.0); IMMATURE GRANULOCYTE % 1.1 % (0-0); LYMPH # 1.9 10^3/uL (1.5-4.5); LYMPH % 20.1 % (24.0-44.0); MEAN CORPUSCULAR HEMOGLOBIN 31.6 pg (27.0-33.0); MEAN CORPUSCULAR HGB CONC 35.1 g/dl (32.0-36.5); MONO # 0.8 10^3/uL (0.0-0.8); MONO % 8.8 % (0.0-5.0); NEUTROPHILS # 6.2 10^3/uL (1.8-7.7); NEUTROPHILS % 66.1 % (36.0-66.0); PLATELET COUNT, AUTOMATED 297 10^3/uL (150-450); RED CELL DISTRIBUTION WIDTH 12.8 % (11.5-14.5); WHITE BLOOD COUNT 9.4 10^3/uL (4.0-10.0)
[2017-03-25 15:16] LABS: ALBUMIN 3.1 GM/DL (3.2-5.2); ALBUMIN/GLOBULIN RATIO 0.82 (1.00-1.93); ALKALINE PHOSPHATASE 70 U/L (45-117); ALT/SGPT 18 U/L (12-78); ANION GAP 10 MEQ/L (8-16); AST/SGOT 15 U/L (7-37); BILIRUBIN,DIRECT < 0.1 MG/DL (0.0-0.2); BILIRUBIN,TOTAL 0.4 MG/DL (0.2-1.0); BLOOD UREA NITROGEN 17 MG/DL (7-18); CALCIUM LEVEL 7.8 MG/DL (8.8-10.2); CARBON DIOXIDE LEVEL 22 MEQ/L (21-32); CHLORIDE LEVEL 106 MEQ/L (98-107); GLOMERULAR FILTRATION RATE > 60.0 (>42); GLUCOSE, FASTING 287 MG/DL (83-110); SODIUM LEVEL 138 MEQ/L (136-145); TOTAL PROTEIN 6.9 GM/DL (6.4-8.2)
--- NOTE | 2017-03-25 16:19 | REP ---
PORTABLE CHEST: AP portable view of the chest is performed. COMPARISON: 03/11/2017 as well as other prior exams. There is chronic cardiomegaly with calcification and tortuosity of the thoracic aorta. The mediastinal silhouette is unchanged. There are diffuse fibrotic changes bilaterally which are stable. There is no acute infiltrate or pulmonary edema. There is chronic blunting of the left costophrenic angle. IMPRESSION: Cardiomegaly and chronic findings in the lungs. No acute infiltrate. Signed by Fox Pulido MD 03/25/2017 04:58 P
[2017-03-25] MEDS ORDERED: METO1TAB7 PO (18:08)
[2017-03-25 18:15] VITALS: BP 143/63
--- NOTE | 2017-03-25 20:14 | ECGEPIP ---
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
--- NOTE | 2017-03-25 23:08 | ECHO ---
DATE OF PROCEDURE: 03/25/2017 REFERRING PHYSICIAN: Rafael Sierra MD INDICATION: Syncope. HEIGHT: 178 cm WEIGHT: 91 kg 2D MEASUREMENTS: Aortic root: 3.6 cm Left atrium: 4.3 cm Left ventricle diastole: 6.7 cm Ventricular septum: 1.35 cm Posterior wall: 1.44 cm Aortic annulus: 2.3 cm Inferior vena cava: 2.1 cm DOPPLER MEASUREMENTS: Mild aortic stenosis. Moderate aortic regurgitation. Aortic valve velocity: 218 cm/s LVOT: 72.9 cm/s LVOT VTI: 18.6 cm Very mild mitral regurgitation. Mitral E velocity: 62.2 cm/s Mitral A velocity: 98.2 cm/s Mitral deceleration time: 303 ms Very mild tricuspid regurgitation. Estimated right ventricle systolic pressure 25 mmHg assuming a right atrial pressure of 10 mmHg. Pulmonary artery systolic pressure 25 mmHg by pulmonary acceleration time method. MITRAL ANNULAR TISSUE DOPPLER: E prime lateral: 2.9 cm/s DESCRIPTION: Rhythm was mostly atrial paced rhythm with appearance of first degree atrioventricular (AV) block and some intermittent AV sequential paced rhythm. Image quality was fair. No pericardial effusion. This is a 2D, M-mode, color flow Doppler and pulse wave Doppler examination and included mitral annular tissue Doppler. CONCLUSIONS: 1. Mildly dilated left ventricle with mixed eccentric/concentric left ventricle hypertrophy. Overall moderate left ventricular hypertrophy (LVH). There is a reduction in overall left ventricle (LV) systolic function. Global left ventricle (LV) hypokinesis. Left ventricular ejection fraction (LVEF) 25% by visual estimate. 2. Mild left atrial dilatation. 3. Moderate aortic valve sclerosis of three-cuspid aortic valve. Mild aortic stenosis. Moderate aortic regurgitation. 4. Grade 1 LV diastolic dysfunction (impaired relaxation filling pattern). 5. Normal right ventricle size and systolic function. 6. Presence of intracardiac right atrial and right ventricle leads with the right ventricle lead coursing towards the right ventricle apex position. 7. No pericardial effusion.
== END 2017-03-25 19:12 | disposition home or self-care (01) ==
LOC: M ED 14:15
DX: I95.9 Hypotension, unspecified (principal); T50.905A Adverse effect of unspecified drugs, medicaments and biological substances, initial encounter; X58.XXXA Exposure to other specified factors, initial encounter; Y92.89 Other specified places as the place of occurrence of the external cause; Y93.89 Activity, other specified; Y99.8 Other external cause status; I10 Essential (primary) hypertension; E11.9 Type 2 diabetes mellitus without complications; I25.10 Atherosclerotic heart disease of native coronary artery without angina pectoris; I48.91 Unspecified atrial fibrillation; E78.9 Disorder of lipoprotein metabolism, unspecified; Z79.899 Other long term (current) drug therapy; Z79.82 Long term (current) use of aspirin; Z79.01 Long term (current) use of anticoagulants; Z79.84 Long term (current) use of oral hypoglycemic drugs
CPT/HCPCS: 71010; 80048; 80076; 82140; 82550; 82553; 83605; 84443; 84484; 85025; 87040; 93005; 93041; 93306; 94760; 96360; 96361; 99285; G0480

== ENCOUNTER → 2017-05-24 | Outpatient (CLI) | payer MEDICARE, OTHER | LOC: M SMT 13:07 | DX: J84.9 Interstitial pulmonary disease, unspecified (principal); I51.7 Cardiomegaly | CPT/HCPCS: 71046 ==

== ENCOUNTER → 2017-06-25 | Outpatient (CLI) | payer MEDICARE, OTHER | LOC: M SLEEP 19:36 | DX: G47.33 Obstructive sleep apnea (adult) (pediatric) (principal) | CPT/HCPCS: 95810 ==

== ENCOUNTER → 2017-07-15 | Outpatient (CLI) | payer MEDICARE, OTHER | LOC: M SLEEP 19:42 | DX: G47.33 Obstructive sleep apnea (adult) (pediatric) (principal) | CPT/HCPCS: 95811 ==

== ENCOUNTER 2017-07-30 14:28 | Inpatient (IN) | payer OTHER, MEDICARE ==
[2017-07-30 15:25] LABS: HEMATOCRIT 41.2 % (42.0-52.0); HEMOGLOBIN 14.6 g/dl (13.5-17.5); MEAN CORPUSCULAR HEMOGLOBIN 31.1 pg (27.0-33.0); MEAN CORPUSCULAR HGB CONC 35.4 g/dl (32.0-36.5); MEAN CORPUSCULAR VOLUME 87.8 fl (80.0-96.0); PLATELET COUNT, AUTOMATED 287 10^3/uL (150-450); RED BLOOD COUNT 4.69 10^6/uL (4.30-6.10); RED CELL DISTRIBUTION WIDTH 13.4 % (11.5-14.5); WHITE BLOOD COUNT 9.6 10^3/uL (4.0-10.0)
[2017-07-30 15:38] LABS: AMPHETAMINES LEVEL URINE NEGATIVE (NEGATIVE); BARBITURATES URINE NEGATIVE (NEGATIVE); BENZODIAZEPINES URINE NEGATIVE (NEGATIVE); CANNABINOIDS URINE NEGATIVE (NEGATIVE); COCAINE METABOLITE URINE NEGATIVE (NEGATIVE); METHADONE URINE NEGATIVE (NEGATIVE); OPIATES URINE NEGATIVE (NEGATIVE); PHENCYCLIDINE URINE NEGATIVE (NEGATIVE)
[2017-07-30 16:07] LABS: ALBUMIN 4.1 GM/DL (3.2-5.2); ALBUMIN/GLOBULIN RATIO 1.05 (1.00-1.93); ALKALINE PHOSPHATASE 81 U/L (45-117); ALT/SGPT 26 U/L (12-78); ANION GAP 9 MEQ/L (8-16); AST/SGOT 19 U/L (7-37); BILIRUBIN,DIRECT 0.2 MG/DL (0.0-0.2); BILIRUBIN,TOTAL 0.7 MG/DL (0.2-1.0); BLOOD UREA NITROGEN 15 MG/DL (7-18); CALCIUM LEVEL 9.1 MG/DL (8.8-10.2); CARBON DIOXIDE LEVEL 25 MEQ/L (21-32); CHLORIDE LEVEL 103 MEQ/L (98-107); CREATININE FOR GFR 0.95 MG/DL (0.70-1.30); ETHYL ALCOHOL (ETHANOL) < 0.003 % (0.000-0.010); GLOMERULAR FILTRATION RATE > 60.0 (>42); GLUCOSE, FASTING 168 MG/DL (70-100); LIPASE 217 U/L (73-393); POTASSIUM SERUM 4.2 MEQ/L (3.5-5.1); SALICYLATE LEVEL < 1.7 MG/DL (5.0-30.0); SODIUM LEVEL 137 MEQ/L (136-145)
[2017-07-30 16:23] LABS: ACETAMINOPHEN LEVEL < 2.0 UG/ML (10.0-30.0)
[2017-07-31] MEDS: ACETAMINOPHEN TAB 650MG DOSE (2X325MG) PO ×2 (01:41→22:48)
[2017-07-31] MEDS ORDERED: MAALOX 30 ML SUSP *UDC PO (04:30)
[2017-07-31] MEDS ORDERED: MOM 30ML SUSPENSION UDC PO (04:30)
[2017-07-31] MEDS: NITROGLYCERIN 0.4 MG SUBL TABLET SL (05:49)
[2017-07-31 05:57] LABS: CK-MB VALUE MASS 3.5 NG/ML (<3.6); CPK CREATINE PHOSPHOKINASE 112 U/L (39-308); MB/CK RELATIVE INDEX 3.12 (< OR =4); TROPONIN I 0.04 NG/ML (< 0.10)
[2017-07-31] MEDS: ASPIRIN 81 MG ENTERIC TAB PO (08:38)
[2017-07-31] MEDS: VENLAFAXINE **XR** 37.5 MG CAPSULE PO (12:12)
[2017-07-31] MEDS ORDERED: NITROGLYCERIN 0.4 MG SUBL TABLET SL (20:15)
[2017-07-31] MEDS ORDERED: tiZANidine 4 MG TAB PO (20:15)
[2017-07-31] MEDS ORDERED: ALBUTEROL 90 MCG/ACT 8GM HFA INHALER INH (20:15)
[2017-07-31] MEDS: APIXABAN 5 MG TAB (ELIQUIS) PO (21:31)
[2017-08-01] MEDS: ASPIRIN 81 MG ENTERIC TAB PO (08:36)
[2017-08-01] MEDS: LISINOPRIL 10 MG TAB PO (08:36)
[2017-08-01] MEDS: METOPROLOL SUCC (TopROL XL) 50MG **XL** TAB PO (08:36)
[2017-08-01] MEDS: SIMVASTATIN 40 MG TAB PO (08:36)
[2017-08-01] MEDS: VENLAFAXINE **XR** 37.5 MG CAPSULE PO (08:36)
[2017-08-01] MEDS: SITagliptin 50 MG TAB (JANUVIA) PO (08:36)
[2017-08-01] MEDS: ISOSORBIDE MON. (IMDUR) 30 MG XR TAB PO (08:36)
[2017-08-01] MEDS: metFORMIN (GLUCOPHAGE) 500 MG TAB PO ×2 (08:37→17:15)
[2017-08-01] MEDS: APIXABAN 5 MG TAB (ELIQUIS) PO ×2 (08:37→22:19)
[2017-08-01 08:38] LABS: BEDSIDE GLUCOSE 176 MG/DL (83-110)
[2017-08-01 17:12] LABS: BEDSIDE GLUCOSE 213 MG/DL (83-110)
[2017-08-02] MEDS: traZODone 50 MG TAB PO (01:21)
[2017-08-02 06:25] LABS: BEDSIDE GLUCOSE 129 MG/DL (83-110)
[2017-08-02] MEDS: glyBURIDE 2.5 MG TAB PO (07:05)
[2017-08-02] MEDS: LISINOPRIL 10 MG TAB PO (08:41)
[2017-08-02] MEDS: VENLAFAXINE **XR** 37.5 MG CAPSULE PO (08:41)
[2017-08-02] MEDS: ASPIRIN 81 MG ENTERIC TAB PO (08:41)
[2017-08-02] MEDS: ISOSORBIDE MON. (IMDUR) 30 MG XR TAB PO (08:41)
[2017-08-02] MEDS: APIXABAN 5 MG TAB (ELIQUIS) PO (08:41)
[2017-08-02] MEDS: CYANOCOBALAMIN 500 MCG TAB PO (08:42)
[2017-08-02] MEDS: SIMVASTATIN 40 MG TAB PO (08:42)
[2017-08-02] MEDS: SITagliptin 50 MG TAB (JANUVIA) PO (08:42)
[2017-08-02] MEDS: metFORMIN (GLUCOPHAGE) 500 MG TAB PO (08:42)
[2017-08-02] MEDS: METOPROLOL SUCC (TopROL XL) 50MG **XL** TAB PO (08:42)
== END 2017-08-02 15:13 | disposition home or self-care (01) | DRG 885 ==
LOC: M PSY 08-01 21:49 → M ED INP 07-31 04:25 → M PSY 07-31 04:59 → M ED 14:28
DX: F33.2 Major depressive disorder, recurrent severe without psychotic features (principal); E11.9 Type 2 diabetes mellitus without complications; I10 Essential (primary) hypertension; I25.10 Atherosclerotic heart disease of native coronary artery without angina pectoris; E78.00 Pure hypercholesterolemia, unspecified; I25.5 Ischemic cardiomyopathy; N40.0 Benign prostatic hyperplasia without lower urinary tract symptoms; E78.5 Hyperlipidemia, unspecified; G47.33 Obstructive sleep apnea (adult) (pediatric); Z95.0 Presence of cardiac pacemaker; Z95.5 Presence of coronary angioplasty implant and graft; Z79.82 Long term (current) use of aspirin; Z79.01 Long term (current) use of anticoagulants; Z79.84 Long term (current) use of oral hypoglycemic drugs; Z79.899 Other long term (current) drug therapy; Z77.090 Contact with and (suspected) exposure to asbestos

== ENCOUNTER → 2017-08-02 | Outpatient (CLI) | payer MEDICARE, OTHER | LOC: M SLEEP 20:20 | DX: G47.33 Obstructive sleep apnea (adult) (pediatric) (principal) | CPT/HCPCS: 95811 ==

== ENCOUNTER → 2017-10-28 | Outpatient (REF) | payer MEDICARE, OTHER ==
[2017-10-28 09:22] LABS: ESTIMATED AVERAGE GLUCOSE 148 MG/DL (60-110); HEMOGLOBIN A1c 6.8 %
[2017-10-28 11:19] LABS: VITAMIN B12 LEVEL 602 PG/ML (247-911)
== END ==
LOC: SKLAB6 08:00
DX: E11.9 Type 2 diabetes mellitus without complications (principal); N40.0 Benign prostatic hyperplasia without lower urinary tract symptoms; F03.90 Unspecified dementia, unspecified severity, without behavioral disturbance, psychotic disturbance, mood disturbance, and anxiety
CPT/HCPCS: 84443

== ENCOUNTER → 2017-11-26 | Outpatient (REF) | payer MEDICARE, OTHER | LOC: SKLAB6 08:00 | DX: I67.82 Cerebral ischemia (principal) | CPT/HCPCS: 93005 ==

== ENCOUNTER → 2017-12-03 | Outpatient (REF) | payer MEDICARE, OTHER ==
[2017-12-03 14:38] LABS: APPEARANCE, URINE CLEAR (CLEAR); BACTERIA, URINE AUTO NEGATIVE (NEGATIVE); BILIRUBIN, URINE AUTO NEGATIVE (NEGATIVE); BLOOD, URINE BLOOD NEGATIVE (NEGATIVE); CALCIUM OXALATE CRYSTALS MODERATE; COLOR, URINE YELLOW (YELLOW); GLUCOSE, URINE (UA) AUTO NEGATIVE (NEGATIVE); KETONE, URINE AUTO NEGATIVE (NEGATIVE); LEUKOCYTE ESTERASE, URINE AUTO NEGATIVE (NEGATIVE); MUCUS, URINE SMALL (NEGATIVE); NITRITE, URINE AUTO NEGATIVE (NEGATIVE); PROTEIN, URINE AUTO NEGATIVE (NEGATIVE); RBC, URINE AUTO 0 /HPF (0-3); SPECIFIC GRAVITY URINE AUTO 1.018 (1.002-1.035); SQUAMOUS EPITHELIAL CELL UR AU 0 /HPF (0-6); UROBILINOGEN, URINE AUTO 0.2 mg/dL (0.0-2.0); WBC, URINE AUTO 1 /HPF (0-3)
== END ==
LOC: M SMT 12:36
DX: N40.1 Benign prostatic hyperplasia with lower urinary tract symptoms (principal)
CPT/HCPCS: 81001

== ENCOUNTER 2017-12-27 05:49 | Emergency (ER) | payer MEDICARE, OTHER ==
[2017-12-27] MEDS: ASPIRIN 325 MG TAB PO (06:30)
[2017-12-27 06:46] LABS: BASO % 0.5 % (0.0-1.0); EOS # 0.3 10^3/uL (0.0-0.50); EOS % 3.7 % (0.0-3.0); HEMATOCRIT 36.8 % (42.0-52.0); HEMOGLOBIN 13.2 g/dl (13.5-17.5); IMMATURE GRANULOCYTE % 0.8 % (0-3.0); MEAN CORPUSCULAR HEMOGLOBIN 31.9 pg (27.0-33.0); MEAN CORPUSCULAR HGB CONC 35.9 g/dl (32.0-36.5); MEAN CORPUSCULAR VOLUME 88.9 fl (80.0-96.0); MONO # 0.9 10^3/uL (0.0-0.8); MONO % 10.9 % (0.0-5.0); NEUTROPHILS # 4.6 10^3/uL (1.8-7.7); NEUTROPHILS % 58.1 % (36.0-66.0); PLATELET COUNT, AUTOMATED 200 10^3/uL (150-450); RED BLOOD COUNT 4.14 10^6/uL (4.30-6.10); RED CELL DISTRIBUTION WIDTH 14.1 % (11.5-14.5); WHITE BLOOD COUNT 7.8 10^3/uL (4.0-10.0)
[2017-12-27 07:00] LABS: INR 1.04; PROTHROMBIN TIME 13.7 SECONDS (12.1-14.4)
[2017-12-27 07:01] LABS: PARTIAL THROMBOPLASTIN TIME 30.4 SECONDS (25.4-37.6)
[2017-12-27 07:10] LABS: ANION GAP 13 MEQ/L (8-16); BLOOD UREA NITROGEN 12 MG/DL (7-18); CALCIUM LEVEL 8.7 MG/DL (8.8-10.2); CARBON DIOXIDE LEVEL 24 MEQ/L (21-32); CHLORIDE LEVEL 104 MEQ/L (98-107); CPK CREATINE PHOSPHOKINASE 92 U/L (39-308); CREATININE FOR GFR 0.87 MG/DL (0.70-1.30); GLOMERULAR FILTRATION RATE > 60.0 (>42); GLUCOSE, FASTING 94 MG/DL (70-100); MB/CK RELATIVE INDEX 2.72 (< OR =4); POTASSIUM SERUM 3.7 MEQ/L (3.5-5.1); SODIUM LEVEL 141 MEQ/L (136-145); TROPONIN I 0.03 NG/ML (< 0.10)
[2017-12-27 08:50] LABS: CPK CREATINE PHOSPHOKINASE 88 U/L (39-308); MB/CK RELATIVE INDEX 3.18 (< OR =4); TROPONIN I 0.04 NG/ML (< 0.10)
== END 2017-12-27 10:09 | disposition home or self-care (01) ==
LOC: M ED 05:49
DX: R07.89 Other chest pain (principal); E11.9 Type 2 diabetes mellitus without complications; I10 Essential (primary) hypertension; I25.10 Atherosclerotic heart disease of native coronary artery without angina pectoris; E78.5 Hyperlipidemia, unspecified; F03.90 Unspecified dementia, unspecified severity, without behavioral disturbance, psychotic disturbance, mood disturbance, and anxiety; N40.0 Benign prostatic hyperplasia without lower urinary tract symptoms; R00.1 Bradycardia, unspecified; Z95.1 Presence of aortocoronary bypass graft; Z95.5 Presence of coronary angioplasty implant and graft; Z79.899 Other long term (current) drug therapy; Z79.82 Long term (current) use of aspirin
CPT/HCPCS: 71046

== ENCOUNTER → 2018-01-06 | Outpatient (REF) | payer MEDICARE, OTHER ==
[2018-01-06 12:23] LABS: HEMATOCRIT 36.7 % (42.0-52.0); HEMOGLOBIN 13.2 g/dl (13.5-17.5); MEAN CORPUSCULAR HEMOGLOBIN 32.8 pg (27.0-33.0); MEAN CORPUSCULAR VOLUME 91.1 fl (80.0-96.0); PLATELET COUNT, AUTOMATED 184 10^3/uL (150-450); RED BLOOD COUNT 4.03 10^6/uL (4.30-6.10); RED CELL DISTRIBUTION WIDTH 13.8 % (11.5-14.5); WHITE BLOOD COUNT 6.9 10^3/uL (4.0-10.0)
[2018-01-06 13:01] LABS: NT-PRO BNP 2798 PG/ML (<450)
== END ==
LOC: SKLAB8 10:45
DX: I10 Essential (primary) hypertension (principal); E11.9 Type 2 diabetes mellitus without complications
CPT/HCPCS: 85027

== ENCOUNTER → 2018-01-13 | Outpatient (REF) | payer MEDICARE, OTHER ==
[2018-01-13 09:45] LABS: ANION GAP 10 MEQ/L (8-16); BLOOD UREA NITROGEN 12 MG/DL (7-18); CALCIUM LEVEL 8.7 MG/DL (8.8-10.2); CARBON DIOXIDE LEVEL 27 MEQ/L (21-32); CHLORIDE LEVEL 105 MEQ/L (98-107); GLOMERULAR FILTRATION RATE > 60.0 (>42); GLUCOSE, FASTING 150 MG/DL (70-100); POTASSIUM SERUM 3.8 MEQ/L (3.5-5.1); SODIUM LEVEL 142 MEQ/L (136-145)
== END ==
LOC: SKLAB8 08:00
DX: E78.5 Hyperlipidemia, unspecified (principal); E11.9 Type 2 diabetes mellitus without complications; I10 Essential (primary) hypertension
CPT/HCPCS: 36415

== ENCOUNTER → 2018-02-10 | Outpatient (REF) | payer MEDICARE, OTHER ==
[2018-02-10 13:34] LABS: ANION GAP 9 MEQ/L (8-16); BLOOD UREA NITROGEN 16 MG/DL (7-18); CALCIUM LEVEL 9.4 MG/DL (8.8-10.2); CARBON DIOXIDE LEVEL 27 MEQ/L (21-32); CHLORIDE LEVEL 103 MEQ/L (98-107); CREATININE FOR GFR 1.05 MG/DL (0.70-1.30); GLOMERULAR FILTRATION RATE > 60.0 (>42); GLUCOSE, FASTING 91 MG/DL (70-100); POTASSIUM SERUM 4.1 MEQ/L (3.5-5.1); SODIUM LEVEL 139 MEQ/L (136-145)
== END ==
LOC: SKLAB8 07:00
DX: E78.5 Hyperlipidemia, unspecified (principal); I10 Essential (primary) hypertension
CPT/HCPCS: 80048

== ENCOUNTER → 2018-02-10 | Outpatient (CLI) | payer MEDICARE, OTHER | LOC: M RAD 11:06 | DX: N40.1 Benign prostatic hyperplasia with lower urinary tract symptoms (principal) | CPT/HCPCS: 76857 ==

== ENCOUNTER → 2018-02-24 | Outpatient (REF) | payer MEDICARE, OTHER ==
[2018-02-24 09:19] LABS: HEMATOCRIT 36.8 % (42.0-52.0); MEAN CORPUSCULAR HEMOGLOBIN 32.3 pg (27.0-33.0); MEAN CORPUSCULAR HGB CONC 35.3 g/dl (32.0-36.5); MEAN CORPUSCULAR VOLUME 91.5 fl (80.0-96.0); PLATELET COUNT, AUTOMATED 193 10^3/uL (150-450); RED BLOOD COUNT 4.02 10^6/uL (4.30-6.10); RED CELL DISTRIBUTION WIDTH 13.1 % (11.5-14.5); WHITE BLOOD COUNT 7.8 10^3/uL (4.0-10.0)
[2018-02-24 09:59] LABS: ANION GAP 7 MEQ/L (8-16); BLOOD UREA NITROGEN 14 MG/DL (7-18); CALCIUM LEVEL 9.1 MG/DL (8.8-10.2); CARBON DIOXIDE LEVEL 28 MEQ/L (21-32); CHLORIDE LEVEL 102 MEQ/L (98-107); CREATININE FOR GFR 0.94 MG/DL (0.70-1.30); GLOMERULAR FILTRATION RATE > 60.0 (>42); GLUCOSE, FASTING 96 MG/DL (70-100); POTASSIUM SERUM 3.7 MEQ/L (3.5-5.1); SODIUM LEVEL 137 MEQ/L (136-145)
== END ==
LOC: SKLAB8 07:00
DX: F03.90 Unspecified dementia, unspecified severity, without behavioral disturbance, psychotic disturbance, mood disturbance, and anxiety (principal); I10 Essential (primary) hypertension; E11.9 Type 2 diabetes mellitus without complications
CPT/HCPCS: 80048

== ENCOUNTER → 2018-03-10 | Outpatient (REF) | payer MEDICARE, OTHER ==
[2018-03-10 10:36] LABS: ANION GAP 8 MEQ/L (8-16); BLOOD UREA NITROGEN 14 MG/DL (7-18); CARBON DIOXIDE LEVEL 28 MEQ/L (21-32); CHLORIDE LEVEL 104 MEQ/L (98-107); CREATININE FOR GFR 0.99 MG/DL (0.70-1.30); GLOMERULAR FILTRATION RATE > 60.0 (>42); GLUCOSE, FASTING 88 MG/DL (70-100); SODIUM LEVEL 140 MEQ/L (136-145)
== END ==
LOC: SKLAB8 08:30
DX: I10 Essential (primary) hypertension (principal)
CPT/HCPCS: 80048

== ENCOUNTER → 2018-04-28 | Outpatient (REF) | payer MEDICARE, OTHER ==
[~2018-04-28] MED LIST changes: +ASPI81TAEC PO; +B-12500T2 PO; -DOXY-278 PO; +DOXY-350 PO; +FLOM0.4C39 PO; -FLOM5CAP PO; +FOLI1TAB11 PO; +GLYB25TA PO; +LASI40TA9 PO; +LOVE1INJ SC; +MELO15TA28 PO; +METO1TAB7 PO; +OXYB10TA PO; +PLAV1TAB2 PO; +QUET1TAB7 PO; -SIMV80TA PO; +SIMV80TA13 PO; +TIZA4CAP PO; -TIZA4CAP3 PO; +TRAD5TAB PO; +TRAZ-160 PO; +TRAZO50TA PO; +VENL37.598 PO
[2018-04-28 08:59] LABS: HEMOGLOBIN A1c 5.2 %
[2018-04-28 09:13] LABS: ALBUMIN 4.1 GM/DL (3.2-5.2); ALT/SGPT 31 U/L (12-78); BILIRUBIN,TOTAL 0.4 MG/DL (0.2-1.0); BLOOD UREA NITROGEN 12 MG/DL (7-18); CALCIUM LEVEL 9.2 MG/DL (8.8-10.2); CARBON DIOXIDE LEVEL 27 MEQ/L (21-32); CHLORIDE LEVEL 101 MEQ/L (98-107); CREATININE FOR GFR 0.94 MG/DL (0.70-1.30); GLOMERULAR FILTRATION RATE > 60.0 (>42); GLUCOSE, FASTING 85 MG/DL (70-100); POTASSIUM SERUM 4.1 MEQ/L (3.5-5.1); SODIUM LEVEL 137 MEQ/L (136-145); TOTAL PROTEIN 7.6 GM/DL (6.4-8.2)
[2018-04-28 09:52] LABS: VITAMIN B12 LEVEL 439 PG/ML (247-911)
== END ==
LOC: SKLAB8 07:00
PROVIDERS: ATTEND Internal Medicine
DX: I50.9 Heart failure, unspecified (principal); F03.90 Unspecified dementia, unspecified severity, without behavioral disturbance, psychotic disturbance, mood disturbance, and anxiety; Z79.899 Other long term (current) drug therapy

== ENCOUNTER → 2018-06-02 | Outpatient (REF) | payer MEDICARE, OTHER, MEDICAID ==
[2018-06-02 09:56] LABS: BLOOD UREA NITROGEN 11 MG/DL (7-18); CALCIUM LEVEL 8.6 MG/DL (8.8-10.2); CARBON DIOXIDE LEVEL 24 MEQ/L (21-32); CHLORIDE LEVEL 107 MEQ/L (98-107); CREATININE FOR GFR 0.85 MG/DL (0.70-1.30); GLOMERULAR FILTRATION RATE > 60.0 (>42); GLUCOSE, FASTING 125 MG/DL (70-100); NT-PRO BNP 673 PG/ML (<450); POTASSIUM SERUM 3.8 MEQ/L (3.5-5.1); SODIUM LEVEL 139 MEQ/L (136-145)
== END ==
LOC: SKLAB8 07:00
PROVIDERS: ATTEND Internal Medicine
DX: I50.9 Heart failure, unspecified (principal)

== ENCOUNTER → 2018-06-30 | Outpatient (REF) | payer MEDICARE, OTHER, MEDICAID ==
[2018-06-30 08:32] LABS: HEMATOCRIT 41.3 % (42.0-52.0); HEMOGLOBIN 14.5 g/dl (13.5-17.5); MEAN CORPUSCULAR HEMOGLOBIN 32.1 pg (27.0-33.0); MEAN CORPUSCULAR HGB CONC 35.1 g/dl (32.0-36.5); MEAN CORPUSCULAR VOLUME 91.4 fl (80.0-96.0); PLATELET COUNT, AUTOMATED 206 10^3/uL (150-450); RED BLOOD COUNT 4.52 10^6/uL (4.30-6.10); WHITE BLOOD COUNT 8.4 10^3/uL (4.0-10.0)
== END ==
LOC: SKLAB8 08:00
PROVIDERS: ATTEND Internal Medicine
DX: R35.0 Frequency of micturition (principal); R39.15 Urgency of urination
CPT/HCPCS: 36415; 85027; G0103

== ENCOUNTER → 2018-08-01 | Outpatient (REF) | payer MEDICARE, OTHER, MEDICAID ==
[~2018-08-01] MED LIST changes: -ASPI1TAB PO; +ASPI81TA26 PO; +SERT-141 PO; -SERT50TA PO
[2018-08-01 09:03] LABS: BLOOD UREA NITROGEN 14 MG/DL (7-18); CALCIUM LEVEL 8.9 MG/DL (8.8-10.2); CARBON DIOXIDE LEVEL 24 MEQ/L (21-32); CHLORIDE LEVEL 106 MEQ/L (98-107); CREATININE FOR GFR 0.98 MG/DL (0.70-1.30); GLOMERULAR FILTRATION RATE > 60.0 (>42); GLUCOSE, FASTING 163 MG/DL (70-100); NT-PRO BNP 593 PG/ML (<450); POTASSIUM SERUM 4.3 MEQ/L (3.5-5.1); SODIUM LEVEL 138 MEQ/L (136-145)
== END ==
LOC: SKLAB8 07:00
PROVIDERS: ATTEND Internal Medicine
DX: I50.40 Unspecified combined systolic (congestive) and diastolic (congestive) heart failure (principal); E11.9 Type 2 diabetes mellitus without complications; Z79.899 Other long term (current) drug therapy

== ENCOUNTER → 2018-08-25 | Outpatient (REF) | payer MEDICARE, OTHER, MEDICAID ==
[~2018-08-25] MED LIST changes: -TRAZ-160 PO; +TRAZ-252 PO; +TRAZ1TAB10 PO; -TRAZO50TA PO
[2018-08-25 09:20] LABS: BLOOD UREA NITROGEN 16 MG/DL (7-18); CARBON DIOXIDE LEVEL 25 MEQ/L (21-32); CHLORIDE LEVEL 107 MEQ/L (98-107); CREATININE FOR GFR 1.01 MG/DL (0.70-1.30); GLOMERULAR FILTRATION RATE > 60.0 (>42); GLUCOSE, FASTING 111 MG/DL (70-100); SODIUM LEVEL 139 MEQ/L (136-145)
== END ==
LOC: SKLAB8 07:00
PROVIDERS: ATTEND Internal Medicine
DX: E11.9 Type 2 diabetes mellitus without complications (principal); Z79.899 Other long term (current) drug therapy

== ENCOUNTER → 2018-09-14 | Outpatient (REF) | payer MEDICARE, OTHER, MEDICAID ==
[2018-09-14 15:08] LABS: ALBUMIN 3.6 GM/DL (3.2-5.2); ALT/SGPT 38 U/L (12-78); BILIRUBIN,TOTAL 0.6 MG/DL (0.2-1.0); BLOOD UREA NITROGEN 13 MG/DL (7-18); CALCIUM LEVEL 8.5 MG/DL (8.8-10.2); CARBON DIOXIDE LEVEL 25 MEQ/L (21-32); CHLORIDE LEVEL 104 MEQ/L (98-107); CREATININE FOR GFR 1.08 MG/DL (0.70-1.30); GLOMERULAR FILTRATION RATE > 60.0 (>42); GLUCOSE, FASTING 185 MG/DL (70-100); POTASSIUM SERUM 4.4 MEQ/L (3.5-5.1); SODIUM LEVEL 137 MEQ/L (136-145); TOTAL PROTEIN 7.2 GM/DL (6.4-8.2)
== END ==
LOC: SKLAB8 11:00
PROVIDERS: ATTEND Internal Medicine
DX: E11.9 Type 2 diabetes mellitus without complications (principal)

== ENCOUNTER → 2018-09-29 | Outpatient (REF) | payer MEDICARE, OTHER, MEDICAID ==
[2018-09-29 09:20] LABS: HEMATOCRIT 39.9 % (42.0-52.0); HEMOGLOBIN 13.8 g/dl (13.5-17.5); MEAN CORPUSCULAR HEMOGLOBIN 31.7 pg (27.0-33.0); MEAN CORPUSCULAR HGB CONC 34.6 g/dl (32.0-36.5); MEAN CORPUSCULAR VOLUME 91.7 fl (80.0-96.0); PLATELET COUNT, AUTOMATED 216 10^3/uL (150-450); RED BLOOD COUNT 4.35 10^6/uL (4.30-6.10); WHITE BLOOD COUNT 8.9 10^3/uL (4.0-10.0)
== END ==
LOC: SKLAB8 07:00
PROVIDERS: ATTEND Internal Medicine
DX: E11.9 Type 2 diabetes mellitus without complications (principal); I11.0 Hypertensive heart disease with heart failure; I51.9 Heart disease, unspecified

== ENCOUNTER → 2018-10-27 | Outpatient (REF) | payer MEDICARE, MEDICAID ==
[2018-10-27 08:33] LABS: ALBUMIN 3.5 GM/DL (3.2-5.2); ALT/SGPT 25 U/L (12-78); BILIRUBIN,TOTAL 0.6 MG/DL (0.2-1.0); BLOOD UREA NITROGEN 11 MG/DL (7-18); CALCIUM LEVEL 8.7 MG/DL (8.8-10.2); CARBON DIOXIDE LEVEL 22 MEQ/L (21-32); CHLORIDE LEVEL 109 MEQ/L (98-107); GLOMERULAR FILTRATION RATE > 60.0 (>42); GLUCOSE, FASTING 142 MG/DL (70-100); SODIUM LEVEL 140 MEQ/L (136-145); TOTAL PROTEIN 6.6 GM/DL (6.4-8.2)
[2018-10-27 10:03] LABS: VITAMIN B12 LEVEL 374 PG/ML (247-911)
[2018-10-27 10:40] LABS: HEMOGLOBIN A1c 7.1 %
== END ==
LOC: SKLAB8 07:00
PROVIDERS: ATTEND Internal Medicine
DX: E11.9 Type 2 diabetes mellitus without complications (principal); I48.91 Unspecified atrial fibrillation; I10 Essential (primary) hypertension; Z12.5 Encounter for screening for malignant neoplasm of prostate
CPT/HCPCS: 36415; 80053; 82607; 83036; 84443; G0103

== ENCOUNTER → 2018-11-24 | Outpatient (REF) | payer MEDICARE, MEDICAID ==
[~2018-11-24] MED LIST changes: -OXYB10TA PO; +OXYB10TA23 PO
[2018-11-24 10:19] LABS: BLOOD UREA NITROGEN 14 MG/DL (7-18); CALCIUM LEVEL 8.7 MG/DL (8.8-10.2); CARBON DIOXIDE LEVEL 22 MEQ/L (21-32); CHLORIDE LEVEL 108 MEQ/L (98-107); CREATININE FOR GFR 0.86 MG/DL (0.70-1.30); GLOMERULAR FILTRATION RATE > 60.0 (>42); GLUCOSE, FASTING 120 MG/DL (70-100); SODIUM LEVEL 140 MEQ/L (136-145)
== END ==
LOC: SKLAB8 07:00
PROVIDERS: ATTEND Internal Medicine
DX: E11.9 Type 2 diabetes mellitus without complications (principal); I10 Essential (primary) hypertension; E55.9 Vitamin D deficiency, unspecified

== ENCOUNTER → 2018-12-29 | Outpatient (REF) | payer MEDICARE ==
[~2018-12-29] MED LIST changes: +OXYB10TA2 PO; -OXYB10TA23 PO
[2018-12-29 08:26] LABS: HEMATOCRIT 38.7 % (42.0-52.0); HEMOGLOBIN 13.6 g/dl (13.5-17.5); MEAN CORPUSCULAR HEMOGLOBIN 32.9 pg (27.0-33.0); MEAN CORPUSCULAR HGB CONC 35.1 g/dl (32.0-36.5); MEAN CORPUSCULAR VOLUME 93.5 fl (80.0-96.0); PLATELET COUNT, AUTOMATED 205 10^3/uL (150-450); RED BLOOD COUNT 4.14 10^6/uL (4.30-6.10); WHITE BLOOD COUNT 8.2 10^3/uL (4.0-10.0)
== END ==
LOC: SKLAB8 07:00
PROVIDERS: ATTEND Internal Medicine
DX: E11.9 Type 2 diabetes mellitus without complications (principal)

== ENCOUNTER → 2019-02-01 | Outpatient (REF) | payer MEDICARE ==
[2019-02-01 08:14] LABS: CHOLESTEROL RISK RATIO 7.296 (<5)
== END ==
LOC: SKLAB8 08:00
PROVIDERS: ATTEND Internal Medicine
DX: Z79.899 Other long term (current) drug therapy (principal)

== ENCOUNTER → 2019-03-02 | Outpatient (REF) | payer MEDICARE ==
[2019-03-02 12:24] LABS: BLOOD UREA NITROGEN 15 MG/DL (7-18); CALCIUM LEVEL 8.9 MG/DL (8.8-10.2); CARBON DIOXIDE LEVEL 22 MEQ/L (21-32); CHLORIDE LEVEL 106 MEQ/L (98-107); CREATININE FOR GFR 0.96 MG/DL (0.70-1.30); GLOMERULAR FILTRATION RATE > 60.0 (>42); GLUCOSE, FASTING 170 MG/DL (70-100); POTASSIUM SERUM 4.1 MEQ/L (3.5-5.1); SODIUM LEVEL 139 MEQ/L (136-145)
== END ==
LOC: SKLAB8 08:00
PROVIDERS: ATTEND Internal Medicine
DX: I10 Essential (primary) hypertension (principal)

== ENCOUNTER → 2019-03-30 | Outpatient (REF) | payer MEDICARE ==
[~2019-03-30] MED LIST changes: -OXYB10TA2 PO; +OXYB10TA23 PO
== END ==
LOC: SKLAB8 07:00
PROVIDERS: ATTEND Internal Medicine
DX: Z53.9 Procedure and treatment not carried out, unspecified reason (principal)

== ENCOUNTER → 2019-04-07 | Outpatient (REF) | payer MEDICARE ==
[2019-04-07 07:35] LABS: HEMATOCRIT 43.7 % (42.0-52.0); HEMOGLOBIN 14.4 g/dl (13.5-17.5); MEAN CORPUSCULAR HEMOGLOBIN 31.4 pg (27.0-33.0); MEAN CORPUSCULAR VOLUME 95.4 fl (80.0-96.0); PLATELET COUNT, AUTOMATED 246 10^3/uL (150-450); RED BLOOD COUNT 4.58 10^6/uL (4.30-6.10); WHITE BLOOD COUNT 8.6 10^3/uL (4.0-10.0)
== END ==
LOC: SKLAB8 04-06 07:00
PROVIDERS: ATTEND Internal Medicine
DX: Z79.899 Other long term (current) drug therapy (principal)

== ENCOUNTER → 2019-04-27 | Outpatient (REF) | payer MEDICARE | LOC: SKLAB8 07:00 | PROVIDERS: ATTEND Internal Medicine | DX: Z53.9 Procedure and treatment not carried out, unspecified reason (principal) ==

== ENCOUNTER 2019-05-12 08:29 | Inpatient (IN) | payer MEDICARE ==
[~2019-05-12] VITALS: Ht 177.8 cm; Wt 89.7 kg
[2019-05-12 08:52] VITALS: BP 145/100
--- NOTE | 2019-05-12 08:55 | REP ---
CT of the brain without IV contrast: Comparison is 10/15/2017. There is no acute intracranial hemorrhage. The cortical stripe is unremarkable. There is no edema, mass effect or midline shift. The sulci and ventricles are enlarged, unchanged, compatible with diffuse volume loss, unchanged. There is are areas of lucency in the subcortical white matter compatible with chronic microvascular ischemia, unchanged. There are basal ganglia lacunar infarcts, unchanged. Impression: There is no acute hemorrhage. Diffuse volume loss and findings compatible with chronic microvascular ischemia and basal ganglia lacunar infarcts are again identified, unchanged. Electronically Signed by Fox Yen MD 05/12/2019 08:47 A
[2019-05-12] MEDS: ENTRESTO 97-103MG TABLET (SACUBITRIL/VALSARTAN) PO SCH ×2 (09:00→21:45)
[2019-05-12] MEDS: SPIRONOLACTONE 12.5MG PER 1/2 TABLET PO SCH (09:00)
[2019-05-12] MEDS: ASPIRIN 81 MG ENTERIC TAB PO SCH (09:00)
[2019-05-12] MEDS ORDERED: CARV25TA PO (09:03)
[2019-05-12] MEDS ORDERED: MYRB25TA PO (09:03)
[2019-05-12] MEDS ORDERED: ELIQ5TAB PO (09:03)
[2019-05-12] MEDS ORDERED: ENTR1TAB4 PO (09:03)
[2019-05-12] MEDS ORDERED: BISA10SU4 PR (09:03)
[2019-05-12] MEDS ORDERED: SPIR-10 PO (09:03)
[2019-05-12] MEDS ORDERED: ENEMENE PR (09:03)
[2019-05-12] MEDS ORDERED: MILKSUS3 PO (09:03)
[2019-05-12] MEDS ORDERED: APAP325T4 PO (09:03)
[2019-05-12] MEDS ORDERED: RISP0.253 PO (09:03)
[2019-05-12] MEDS ORDERED: ARTIDRO2 OU (09:05)
[2019-05-12 09:29] LABS: VENOUS BASE EXCESS -1.8 (-2.0-2.0); VENOUS HCO3 20.3 MEQ/L (23.0-27.0); VENOUS O2 SATURATION 97.7 % (60.0-80.0); VENOUS PARTIAL PRESSURE O2 94.2 mmHg (30.0-50.0); VENOUS PH 7.479 UNITS (7.330-7.430); VENOUS TOTAL CO2 21.2 MEQ/L (24.0-28.0)
[2019-05-12] MEDS ORDERED: ASPE16CR TOP (09:30)
--- NOTE | 2019-05-12 09:33 | REP ---
CHEST, PORTABLE: AP portable view of the chest is performed and compared to prior studies, most recently 12/27/2017. There is cardiomegaly. There is vascular congestion and mild diffuse interstitial edema compatible with congestive heart failure. There are underlying calcified pleural plaques bilaterally. There is calcification and tortuosity of the thoracic aorta. Left dual-lead pacemaker is again noted unchanged in position. Electronically Signed by Fox Pulido MD 05/12/2019 12:50 P
[2019-05-12 09:40] LABS: BASO % 0.4 % (0.0-1.0); EOS # 0.2 10^3/uL (0.0-0.5); EOS % 1.9 % (0.0-3.0); HEMATOCRIT 40.2 % (42.0-52.0); HEMOGLOBIN 13.3 g/dl (13.5-17.5); LYMPH % 10.5 % (24.0-44.0); MEAN CORPUSCULAR HEMOGLOBIN 31.2 pg (27.0-33.0); MEAN CORPUSCULAR HGB CONC 33.1 g/dl (32.0-36.5); MEAN CORPUSCULAR VOLUME 94.4 fl (80.0-96.0); MONO # 0.8 10^3/uL (0.0-0.8); MONO % 7.7 % (0.0-5.0); NEUTROPHILS # 7.8 10^3/uL (1.5-8.5); NEUTROPHILS % 78.9 % (36.0-66.0); PLATELET COUNT, AUTOMATED 250 10^3/uL (150-450); RED BLOOD COUNT 4.26 10^6/uL (4.30-6.10); WHITE BLOOD COUNT 9.9 10^3/uL (4.0-10.0)
[2019-05-12 09:44] LABS: INR 1.35; PROTHROMBIN TIME 16.4 SECONDS (11.8-14.0)
[2019-05-12 09:45] LABS: PARTIAL THROMBOPLASTIN TIME 33.6 SECONDS (25.0-38.4)
[2019-05-12 09:57] LABS: CK-MB VALUE MASS 1.8 NG/ML (<3.6); MB/CK RELATIVE INDEX 3.46 (< OR =4); TROPONIN I 0.03 NG/ML (< 0.10)
[2019-05-12] MEDS ORDERED: BISACODYL 10 MG SUPP PR PRN (11:45)
[2019-05-12] MEDS ORDERED: FLEET ENEMA PR PRN (11:45)
[2019-05-12] MEDS ORDERED: POLYVINYL ALCOHOL OPHTH SOLN 15 ML(LIQUITEARS) OU PRN (11:45)
[2019-05-12] MEDS ORDERED: ACETAMINOPHEN TAB 650MG DOSE (2X325MG) PO PRN (11:45)
--- NOTE | 2019-05-12 12:06 | HPEPDOC ---
[facility] Medical History & Physical Date of Admission May 12, 2019 Date of Service: May 12, 2019 Attending Physician: ALBA BARNETT MD History and Physical CHIEF COMPLAINT: Right sided weakness HISTORY OF PRESENT ILLNESS: 79-year-old male with past medical history of coronary artery disease, dementia, CHF, atrial fibrillation on Eliquis, has permanent pacemaker is brought to the emergency department for right-sided weakness. Patient is alone in the room upon my examination, has left sided gaze preference, staring, not speaking or following commands at this time, not actively moving any extremities. Information obtained from ED staff and chart, as per staff. His sister was at bedside before, who provided information. Patient will cut with new right-sided weakness, CT head in the ED is negative, no intervention due to anticoagulation and unknown duration of symptoms. Patient appears comfortable PAST MEDICAL HISTORY: 1. Coronary artery disease. 2. Dementia. 3. CHF. 4. Atrial fibrillation. PAST SURGICAL HISTORY: 1. Permanent pacemaker. SOCIAL HISTORY: Unable to obtain FAMILY HISTORY: Unable to obtain ALLERGIES: Please see below. REVIEW OF SYSTEMS: Unable to obtain HOME MEDICATIONS: Please see below. PHYSICAL EXAMINATION: VITAL SIGNS: Please see below. GENERAL: No distress HEENT: Normocephalic, atraumatic, moist mucous membranes NECK: Supple CARDIOVASCULAR EXAMINATION: Irregularly irregular RESPIRATORY EXAMINATION: Clear to auscultation, no wheezing ABDOMINAL EXAMINATION: Soft, nontender, nondistended, positive bowel sounds EXTREMITIES: No active movement appreciated SKIN: No rash NEUROLOGICAL EXAMINATION: Leftward gaze appreciated, Patient not cooperating with examination, upon passive lifting of his extremities it is clear that he has right upper and right lower extremity weakness compared to the left side PSYCHIATRIC EXAMINATION: Calm LABORATORY DATA: See below. IMAGING: CT head negative for acute pathology MICROBIOLOGY: Please see below. ASSESSMENT: 79-year-old male with multiple medical comorbidities, presents with symptoms concerning for stroke. . PLAN: 1. Possible CVA. CT head negative in the ED, MRI ordered, neurology consulted (Dr. Funes), corina tomas is on aspirin at home, will continue, will start atorvastatin 40 mg daily, not a candidate for any intervention due to anticoagulation and unknown duration of symptoms. PT/OT eval ordered, swallow eval. 2. Atrial fibrillation. continue Eliquis for anticoagulation and Coreg for rate control. 3. CHF. Stable, continue optimal medical management with Entresto, spironolactone, and beta ridge. 4. Dementia. Unknown if current mentation is at baseline, will attempt to get in contact with family. DVT prophylaxis: on Eliquis GI prophylaxis: Not needed Vital Signs Vital Signs Date Time Temp Pulse Resp B/P (MAP) Pulse Ox O2 Delivery O2 Flow Rate FiO2 05/12/19 08:52 99.4 82 19 145/100 96 Nasal Cannula 2.0 Laboratory Data Labs 24H Laboratory Tests 2 05/12/19 09:18: Prothrombin Time 16.4H, Prothromb Time International Ratio 1.35, Activated Partial Thromboplast Time 33.6 05/12/19 09:19: Blood Gas Bicarbonate Standard 23.0, Venous Blood pH 7.479H, Venous Blood Partial Pressure CO2 28.0L, Venous Blood Partial Pressure O2 94.2H, Venous Blood Total Carbon Dioxide 21.2L, Venous Blood HCO3 20.3L, Venous Blood Oxygen Saturation 97.7H, Venous Blood Base Excess -1.8, Total Creatine Kinase 52, Creatine Kinase MB 1.8, Creatine Kinase MB Relative Index 3.46, Troponin I 0.03 05/12/19 09:20: Immature Granulocyte % (Auto) 0.6, Neutrophils (%) (Auto) 78.9H, Lymphocytes (%) (Auto) 10.5L, Monocytes (%) (Auto) 7.7H, Eosinophils (%) (Auto) 1.9, Basophils (%) (Auto) 0.4, Neutrophils # (Auto) 7.8, Lymphocytes # (Auto) 1.0L, Monocytes # (Auto) 0.8, Eosinophils # (Auto) 0.2, Basophils # (Auto) 0.0, Nucleated Red Blood Cells % (auto) 0.0, Lactic Acid Level 2.0 05/12/19 09:23: Bedside Glucose (Misc Panel) 151H 05/12/19 09:27: POC Glucose (Misc Panel) 164H, POC Sodium (Misc Panel) 139, POC Potassium (Misc Panel) 3.8, POC Chloride (Misc Panel) 107, POC Total CO2 (Misc Panel) 20.0L, POC Blood Urea Nitrogen (Misc Panel 12, POC Ionized Calcium (Misc Panel) 4.6, POC Creatinine (Misc Panel) 0.7, POC Hematocrit (Misc Panel) 45.0 05/12/19 09:31: POC Lactate (Misc Panel) 1.85 CBC/BMP Laboratory Tests 05/12/19 09:20 Microbiology Microbiology 05/12/19 Blood Culture, Received Pending 05/12/19 Blood Culture, Received Pending Home Medications Scheduled Apixaban (Eliquis) 5 Mg Tablet, 5 MG PO BID Aspirin (Aspirin EC) 81 Mg Tabec, 81 MG PO DAILY Carvedilol (Carvedilol) 25 Mg Tablet, 25 MG PO BID Lidocaine HCl (Aspercreme) 4% Cream..g., 1 APLCT TOP BID Mirabegron (Myrbetriq) 25 Mg Tab.er.24h, 25 MG PO DAILY Risperidone (Risperidone) 0.25 Mg Tablet, 0.25 MG PO QHS Sacubitril/Valsartan (Entresto 97 mg-103 mg Tablet) 1 Each Tablet, 1 TAB PO BID Spironolactone (Spironolactone) 25 Mg Tablet, 12.5 MG PO DAILY Scheduled PRN Acetaminophen (Acetaminophen) 325 Mg Tablet, 650 MG PO Q4H PRN for PAIN Bisacodyl (Bisacodyl) 10 Mg Supp.rect, 10 MG IN DAILY PRN for CONSTIPATION Magnesium Hydroxide (Milk of Magnesia) 400 Mg/5 Ml Oral.susp, 2,400 MG PO DAILY PRN for CONSTIPATION Nitroglycerin (Nitrostat) 0.4 Mg Subl, 0.4 MG SL NITRO PRN for CHEST PAIN Polyvinyl Alcohol (Artificial Tears) 15 Ml Drops, 1 DROP OU Q4H PRN for DRY EYES Sodium Phosphate,Leake-Dibasic (Enema) 133 Ml Enema, 1 JONATHAN IN DAILY PRN for CONSTIPATION Allergies Coded Allergies: No Known Drug Allergies (Verified Allergy, Unknown, 05/12/19) A-FIB/CHADSVASC A-FIB History Current/History of A-Fib/PAF?: Yes Current PO Anticoag Therapy: Yes ALBA BARNETT MD May 12, 2019 12:06
[2019-05-12] MEDS ORDERED: CARVedilol 12.5 MG TAB PO ONE (15:00)
[2019-05-12 15:29] VITALS: BP 150/100
[2019-05-12] MEDS ORDERED: SLF 3 ML SYR IV PRN (15:30)
[2019-05-12 16:00] VITALS: BP 158/88
[2019-05-12 20:00] VITALS: BP 140/82
[2019-05-12] MEDS ORDERED: ATORVASTATIN 20 MG TAB PO SCH (21:00)
[2019-05-12] MEDS ORDERED: risperiDONE 0.25 MG TAB PO SCH (21:00)
[2019-05-12] MEDS ORDERED: LABETALOL HCL 100 MG/20 ML VIAL IV STA (21:33)
[2019-05-12] MEDS: APIXABAN 5 MG TAB (ELIQUIS) PO SCH (21:44)
[2019-05-12] MEDS: CARVedilol 12.5 MG TAB PO SCH (21:44)
[2019-05-12] MEDS: SLF 3 ML SYR IV SCH (22:38)
[2019-05-12] MEDS: NS 1,000 ML IV SCH (22:38)
[2019-05-13] VITALS: BP 142/78
--- NOTE | 2019-05-13 00:14 | CR ---
DATE OF CONSULTATION: 05/12/2019 REFERRING PHYSICIAN: Dr. Carl Vazquez REASON FOR CONSULTATION: Aphasia and right-sided weakness. HISTORY OF PRESENT ILLNESS: Sherif Wolf is a 79-year-old man with a history of coronary artery disease, dementia, congestive heart failure, atrial fibrillation, pacemaker placement who has a history of dementia for 10 years. The patient moved to [facility] in 2018. The patient's sister and his lady friend were present during my visit with the patient today. The patient's friend had spoken and seen him around 5:00 p.m. yesterday. He was talking at his baseline. The patient's sister got a call this morning that he was found unresponsive, and he could not be woken up and he was being sent to [facility] Emergency Department. The patient was found to have aphasia and right-sided weakness. The patient had woken up with these symptoms. He was already on Eliquis and was not a candidate for any intervention. The patient had a headache 2 weeks ago. The patient has off-and-on back pain. He had no reported neck pain. The patient is currently unable to provide any history. History was obtained from the patient's sister and his friend. PAST MEDICAL HISTORY: Coronary artery disease, dementia, congestive heart failure, pacemaker placement, atrial fibrillation. SOCIAL HISTORY: He lives at [facility]. There are no reports of current smoking, alcohol or illicit drugs. FAMILY HISTORY: Noncontributory. REVIEW OF SYSTEMS: All systems were reviewed and found to be noncontributory except as mentioned in the history of the present illness. ALLERGIES: None. HOME MEDICATIONS: - Eliquis 5 mg by mouth twice a day - aspirin 81 mg by mouth daily - carvedilol 25 mg by mouth twice a day - lidocaine 4% cream as needed - Myrbetriq 25 mg by mouth daily - risperidone 0.25 mg by mouth nightly - Entresto 97/103 mg by mouth twice a day - spironolactone 25 mg, half a tablet by mouth twice a day - nitroglycerin as needed - Tylenol as needed - bisacodyl suppository as needed - Milk of Magnesia as needed - phosphate enema as needed PHYSICAL EXAMINATION: Temperature 97.5, blood pressure 158/88, respiratory rate 19, pulse 62, 97% saturation on one liter nasal cannula oxygen. Heart: Irregularly irregular. Lungs: Clear to auscultation. Abdomen: Soft, nontender, nondistended. No pedal edema. No musculoskeletal abnormalities. No rash. No signs of meningeal irritation. The patient is awake, alert, oriented to self only. He is completely aphasic. He is unable to follow commands without physical cues. Extraocular muscles examination reveals left-sided gaze preference. 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 No facial weakness. Tongue and uvula are midline. He is able to move his left arm and leg. He has no movement of right arm and leg. His right plantar is upgoing. Deep tendon reflexes are 1+ throughout. Gait could not be tested. Right-sided [id number]-[id number] testing could not be performed. DIAGNOSTIC STUDIES: CT scan of head showed extensive small vessel ischemic disease of brain. His hemoglobin was 13.3 with normal cardiac enzymes. ASSESSMENT: 1. Expressive greater than receptive aphasia with right hemiplegia. 2. Suspected left middle cerebral artery stroke. 3. History of dementia. 4. Atrial fibrillation with congestive heart failure and pacemaker placement. PLAN: 1. Repeat CT scan of head. He cannot do MRI scan of brain due to pacemaker. After CT scan of head, we may be able to get a better idea about his prognosis. If he has complete middle cerebral artery stroke, his prognosis would likely be guarded. 2. Continue aspirin 81 mg by mouth daily and Eliquis 5 mg by mouth twice a day. 3. Continue carvedilol, Entresto and spironolactone. 4. Ultrasound of carotid arteries. Continue telemetry monitoring.
[2019-05-13 04:00] VITALS: BP 142/78
[2019-05-13 05:51] LABS: HEMATOCRIT 40.8 % (42.0-52.0); MEAN CORPUSCULAR HEMOGLOBIN 31.7 pg (27.0-33.0); MEAN CORPUSCULAR HGB CONC 34.3 g/dl (32.0-36.5); MEAN CORPUSCULAR VOLUME 92.5 fl (80.0-96.0); PLATELET COUNT, AUTOMATED 293 10^3/uL (150-450); RED BLOOD COUNT 4.41 10^6/uL (4.30-6.10); WHITE BLOOD COUNT 11.7 10^3/uL (4.0-10.0)
[2019-05-13 06:14] LABS: ALBUMIN 3.2 GM/DL (3.2-5.2); ALT/SGPT 24 U/L (12-78); BILIRUBIN,TOTAL 1.1 MG/DL (0.2-1.0); BLOOD UREA NITROGEN 12 MG/DL (7-18); CALCIUM LEVEL 8.5 MG/DL (8.8-10.2); CARBON DIOXIDE LEVEL 21 MEQ/L (21-32); CHLORIDE LEVEL 110 MEQ/L (98-107); CREATININE FOR GFR 0.74 MG/DL (0.70-1.30); GLOMERULAR FILTRATION RATE > 60.0 (>42); GLUCOSE, FASTING 147 MG/DL (70-100); MAGNESIUM LEVEL 1.8 MG/DL (1.8-2.4); POTASSIUM SERUM 3.7 MEQ/L (3.5-5.1); SODIUM LEVEL 140 MEQ/L (136-145); TOTAL PROTEIN 7.4 GM/DL (6.4-8.2)
[2019-05-13] MEDS: SLF 3 ML SYR IV SCH (06:23)
[2019-05-13 08:00] VITALS: BP 138/78
[2019-05-13] MEDS: NS 1,000 ML IV SCH (08:00)
[2019-05-13] MEDS: SPIRONOLACTONE 12.5MG PER 1/2 TABLET PO SCH (09:00)
--- NOTE | 2019-05-13 09:40 | REP ---
CT of the brain without IV contrast: Comparisons are 05/12/2019 and 10/15 2018: There is a new large area of lucency in the left basal ganglia as a change from both prior studies. There is no hemorrhage. There is no mass effect or midline shift. The cortical stripe is unremarkable. Diffuse volume loss is again identified. Stable areas of subcortical lucency are again identified, compatible with chronic microvascular ischemia. Old right basal ganglia lacunar infarcts are again identified. Impression: There is a developing large area of lucency in the left basal ganglia as an interval change. This is compatible with ischemic infarct. There is no hemorrhage. There are other chronic changes as described. Electronically Signed by Fox Yen MD 05/13/2019 09:31 A
[2019-05-13 09:48] VITALS: BP 138/78
[2019-05-13] MEDS: CARVedilol 12.5 MG TAB PO SCH (09:48)
[2019-05-13] MEDS: APIXABAN 5 MG TAB (ELIQUIS) PO SCH (09:48)
[2019-05-13] MEDS: ENTRESTO 97-103MG TABLET (SACUBITRIL/VALSARTAN) PO SCH (09:48)
[2019-05-13] MEDS: ASPIRIN 81 MG ENTERIC TAB PO SCH (09:48)
[2019-05-13] MEDS ORDERED: LORazepam 2 MG/ML VIAL (J2060) IV PRN (11:45)
[2019-05-13] MEDS: MORPHINE 2 MG/ML 1ML VIAL (J2270) IV PRN (17:21)
--- NOTE | 2019-05-13 21:26 | ECGEPIP ---
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
--- NOTE | 2019-05-13 23:15 | IPNPDOC ---
Date Seen The patient was seen on 05/13/19. Progress Note Repeat CT head in the morning shows acute L basal ganglia infarct, as expected based on clinical presentation. Patient diplaying matias-vargas breathing pattern, unconscious but appears comfortable. Long discussion with sister regarding goals of care and quality of life; she has elected to make the patient comfort measures only and requests a hospice evaluation. Plan: Discontinue all medication except for V[employer] meds, Hospice eval requested. VS, I&O, 24H, Fishbone Vital Signs/I&O Vital Signs Date Time Temp Pulse Resp B/P (MAP) Pulse Ox O2 Delivery O2 Flow Rate FiO2 05/13/19 17:55 24 05/13/19 17:21 Room Air 05/13/19 09:48 79 138/78 05/13/19 08:00 97.2 98 05/13/19 08:00 1.0 I&O- Last 24 Hours up to 6 AM 05/13/19 05:59 Intake Total 0 ml Output Total 0 ml Balance 0 ml Laboratory Data 24H LABS Laboratory Tests 2 05/13/19 05:32: Nucleated Red Blood Cells % (auto) 0.0, Anion Gap 9, Glomerular Filtration Rate > 60.0, Calcium Level 8.5L, Magnesium Level 1.8, Total Bilirubin 1.1H, Aspartate Amino Transf (AST/SGOT) 16, Alanine Aminotransferase (ALT/SGPT) 24, Alkaline Phosphatase 92, Total Protein 7.4, Albumin 3.2, Albumin/Globulin Ratio 0.76L CBC/BMP Laboratory Tests 05/13/19 05:32 Microbiology Microbiology 05/12/19 Blood Culture - Preliminary, Resulted No growth after 24 hours . All specim... 05/12/19 Blood Culture - Preliminary, Resulted No growth after 24 hours . All specim... ALBA BARNETT MD May 13, 2019 23:15
[2019-05-14] MEDS: MORPHINE 2 MG/ML 1ML VIAL (J2270) IV PRN (14:18)
[2019-05-15] MEDS: MORPHINE 2 MG/ML 1ML VIAL (J2270) IV PRN (09:55)
[2019-05-15] MEDS ORDERED: LORazepam 1 MG TAB PO PRN (12:00)
[2019-05-15] MEDS: MORPHINE 10MG/0.5ML ORAL CONCENTRATE SOLUTION U/D SL PRN (12:24)
[2019-05-15 22:00] VITALS: BP 157/110
[2019-05-16] MEDS: MORPHINE 10MG/0.5ML ORAL CONCENTRATE SOLUTION U/D SL PRN ×2 (14:42→16:43)
[2019-05-17] MEDS: MORPHINE 10MG/0.5ML ORAL CONCENTRATE SOLUTION U/D SL PRN ×2 (05:14→11:52)
[2019-05-18] MEDS: MORPHINE 10MG/0.5ML ORAL CONCENTRATE SOLUTION U/D SL PRN (08:57)
[2019-05-18] MEDS ORDERED: MORP20SO3 PO (12:37)
[2019-05-18] MEDS ORDERED: HYOS125TA PO (12:37)
[2019-05-18] MEDS ORDERED: LORA0.5T5 PO (12:37)
--- NOTE | 2019-05-18 18:17 | DS.PDOC ---
Discharge Summary General Date of Admission May 12, 2019 at 12:08 Date of Discharge 05/18/19 Attending Physician: ALBA BARNETT MD Discharge Summary PROCEDURES PERFORMED DURING STAY: None. ADMITTING DIAGNOSES: 1. Large left basal ganglia stroke. DISCHARGE DIAGNOSES: 1. Large left basal ganglia stroke. COMPLICATIONS/CHIEF COMPLAINT: Afib Cad Chf Cva Dementia Hypertension. HISTORY OF PRESENT ILLNESS: 79-year-old male with past medical history of atrial fibrillation, coronary artery disease, CHF and hypertension was admitted for large left basal ganglia stroke. Patient was minimally responsive, nonverbal and obtunded at the time of presentation with Amado-Ernst breathing pattern. Patient was made comfort measures only by a sister. Throughout hospital stay, patient gradually became more alert and responsive, now laying in bed, stairs but does not speak or follow commands. Patient is even tolerating oral intake. Patient will be sent back to [facility] for hospice care. Patient's sister is in agreement, hospice meds will be ordered. HOSPITAL COURSE: As above. DISCHARGE MEDICATIONS: Please see below. ALLERGIES: Please see below. 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 Comfortable in bed, awake, staring, but unable to speak or follow commands. LABORATORY DATA: Please see below. IMAGING: CT head showing large left basal ganglia stroke PROGNOSIS: Poor ACTIVITY: As tolerated for comfort. DIET: As tolerated for comfort DISCHARGE PLAN: Hospice care DISPOSITION: [facility]. TIME SPENT ON DISCHARGE: Greater than 20 minutes. Vital Signs/I&Os Vital Signs Date Time Temp Pulse Resp B/P (MAP) Pulse Ox O2 Delivery O2 Flow Rate FiO2 05/15/19 22:00 98.8 120 18 157/110 (126) 95 Room Air 05/14/19 09:20 1.0 I&O- Last 24 Hours up to 6 AM 05/18/19 06:00 Intake Total 400 ml Output Total 0 ml Balance 400 ml Microbiology Microbiology 05/12/19 Blood Culture - Final, Complete NO GROWTH AFTER 5 DAYS 05/12/19 Blood Culture - Final, Complete NO GROWTH AFTER 5 DAYS Discharge Medications Scheduled PRN Hyoscyamine Sulfate (Hyoscyamine Sulfate) 0.125 Mg Tab.subl, 0.125 MG PO Q4HP PRN for TERMINAL SECRETIONS Use sublingually if unable to swallow Lorazepam (Lorazepam) 0.5 Mg Tablet, 0.5 MG PO Q4HP PRN for ANXIETY/AGITATION Use sublingually if unable to swallow Morphine Sulfate (Morphine Sulfate) 100 Mg/5 Ml Solution, 0.25-1 ML PO Q2H PRN for PAIN OR DYSPNEA Use sublingually if unable to swallow Allergies Coded Allergies: No Known Drug Allergies (Verified Allergy, Unknown, 05/12/19) ALBA BARNETT MD May 18, 2019 18:17
== END 2019-05-18 13:40 | DRG 64 ==
LOC: M ED 08:29 → M ED INP 12:08 → ENRESERV 13:33 → M PCU 15:19 → M MS5PR 05-14 08:35
PROVIDERS: ADMIT Internal Medicine; ATTEND Internal Medicine
DX: I63.512 Cerebral infarction due to unspecified occlusion or stenosis of left middle cerebral artery (principal); R40.20 Unspecified coma; G81.91 Hemiplegia, unspecified affecting right dominant side; R06.3 Periodic breathing; I25.10 Atherosclerotic heart disease of native coronary artery without angina pectoris; F03.90 Unspecified dementia, unspecified severity, without behavioral disturbance, psychotic disturbance, mood disturbance, and anxiety; H54.61 Unqualified visual loss, right eye, normal vision left eye; I50.9 Heart failure, unspecified; I11.0 Hypertensive heart disease with heart failure; I48.91 Unspecified atrial fibrillation; Z51.5 Encounter for palliative care; Z66 Do not resuscitate; Z95.0 Presence of cardiac pacemaker; Z79.01 Long term (current) use of anticoagulants; Z79.82 Long term (current) use of aspirin; Z79.899 Other long term (current) drug therapy; R47.01 Aphasia